=== PATIENT | female | born 1985 | race Caucasian/White ===

== ENCOUNTER 2023-12-19 00:44 | Inpatient (IN) | payer OTHER, SELFPAY ==
[2023-12-19] VITALS (16 sets, daily range): BP systolic 121–148; BP diastolic 82–110; PULSE 77–92; RESP 12–21; TEMP 36.2–36.8; O2SAT 95–100; BMI 54.7
--- NOTE | ~2023-12-19 | CT_ITS ---
CT ANGIOGRAM NECK AND HEAD History: Left neurologic deficit. Technique: Serial spiral axial images through the head and neck were obtained during arterial phase I V injection of 100 cc of Omnipaque 350. 3-D postprocessing and MIP images were then reconstructed on the remote workstation. Dose reduction technique was used on this scan by utilizing automated exposur e control and iterative reconstruction technique. The dose-length product (DLP) was 1040.59 mGy-cm. CTA neck findings: Bilateral vertebral are patent, with hypoplastic right vertebral artery. Bilatera l common carotid, internal carotid, external carotid arteries are patent. Bilateral internal carotid arteries to a partially retropharyngeal course. No large vessel occlusion. No stenosis or aneurysm. T he proximal right internal carotid artery demonstrates 0% stenosis relative to the normal distal nani ry lumen diameter. The proximal left internal carotid artery demonstrates 0% stenosis relative to the normal distal artery lumen diameter. CTA head findings: Distal vertebral arteries, basilar artery, and posterior cerebral arteries are pat ent. Distal internal carotid arteries, middle cerebral arteries, and anterior cerebral arteries are p atent. No large vessel occlusion. No stenosis or aneurysm. Impression: No stenosis, large vessel occlusion, or aneurysm. Reviewed, dictated and finalized at location M. ON CUTTER Impression: No stenosis, large vessel occlusion, or aneurysm.
--- NOTE | ~2023-12-19 | MR_ITS ---
EXAMINATION: MR brain/brain stem wo/w con DATE: 12/20/2023 15:42 INDICATION: Left hand numbness. Left-sided facial weakness. Slurred speech. TECHNIQUE: Magnetic resonance imaging (MRI) of the brain and brainstem was performed without and with 20 mL MultiHance intravenous contrast. COMPARISON: Head CT 12/19/2023 FINDINGS: There is a 14 mm cyst in the pituitary. There are patchy acute infarcts in the posterior ri ght frontal lobe. There is no intracranial hemorrhage. The ventricles are normal in size. The orbits are normal. There is mucosal thickening in the paranasal sinuses. The mastoid air cells are normal. IMPRESSION: 1. Patchy acute infarcts in the posterior right frontal lobe. 2. 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 Reviewed, dictated and finalized at location A. ME SPECIALIST
--- NOTE | ~2023-12-19 | MR_ITS ---
EXAMINATION: MR cervical spine wo/w con DATE: 12/21/2023 13:06 INDICATION: Left hand numbness. TECHNIQUE: Magnetic resonance imaging (MRI) of the cervical spine was performed without and with 20 m L MultiHance intravenous contrast. Sequences included sagittal T2-weighted FSE, sagittal T2-weighted FS FSE, sagittal T1-weighted FSE, axial MERGE, and axial T2-weighted FSE. 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 Bone alignment is meliza l. Vertebral body heights are normal. There is mildly decreased disc height at C5-C6. The spinal cord signal intensity is normal. The following disc levels are specifically discussed: C2-C3: The disc does not extend beyond the endplate margin. There is no uncovertebral joint osteoarth ritis. There is mild left facet joint osteoarthritis. There is no neural foraminal stenosis. There is no central canal stenosis. C3-C4: The disc does not extend beyond the endplate margin. There is mild left uncovertebral joint os teoarthritis. There is no facet joint osteoarthritis. There is mild left neural foraminal stenosis. T here is no central canal stenosis. C4-C5: The disc does not extend beyond the endplate margin. There is no uncovertebral joint osteoarth ritis. There is no facet joint osteoarthritis. There is no neural foraminal stenosis. There is no perry tral canal stenosis. C5-C6: There is a central extrusion. There is moderate right and mild left uncovertebral joint osteoa rthritis. There is no facet joint osteoarthritis. There is mild right neural foraminal stenosis. Ther e is mild central canal stenosis. C6-C7: The disc does not extend beyond the endplate margin. There is mild bilateral uncovertebral luis nt osteoarthritis. There is no facet joint osteoarthritis. There is no neural foraminal stenosis. The re is no central canal stenosis. C7-T1: There is a central extrusion. There is no uncovertebral joint osteoarthritis. There is mild bi lateral facet joint osteoarthritis. There is no neural foraminal stenosis. There is mild central bruce l stenosis. IMPRESSION: 1. Normal spinal cord. 2. Mild cervical spondylosis. 3. 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 Reviewed, dictated and finalized at location A. ORACLE DEVELOPER
--- NOTE | ~2023-12-19 | XR_ITS ---
Portable chest x-ray Comparison: None Clinical History: Neurologic symptoms Findings: Lungs are clear, without focal consolidation or pleural effusion. Cardiomediastinal silho uette is probable enlarged. Bones and soft tissues are unremarkable. Impression: Clear lungs. Reviewed, dictated and finalized at location . MILL OPERATOR Impression: Clear lungs.
--- NOTE | ~2023-12-19 | MR_ITS ---
EXAMINATION: MR thoracic spine wo/w con DATE: 12/21/2023 13:06 INDICATION: Multiple sclerosis. TECHNIQUE: Magnetic resonance imaging (MRI) of the thoracic spine was performed without and with 20 m L MultiHance intravenous contrast. COMPARISON: None FINDINGS: Bone alignment is normal. There are Schmorl's nodes of the inferior endplates of T11 and T1 2. There is mild chronic anterior wedging of T11 and T12. There is mildly decreased disc height at T5 -T6 and T11-T12. At T11-T12, there is a right central extrusion with mild central canal stenosis. The facet joints are unremarkable in thoracic spine. There is no neural foraminal stenosis in thoracic s pine. The spinal cord signal intensity is normal. The conus medullaris is at T12-L1. IMPRESSION: 1. Normal spinal cord. 2. Mild thoracic spondylosis. Reviewed, dictated and finalized at location A. ET SORTER
--- NOTE | ~2023-12-19 | CT_ITS ---
Non-contrast Head CT History: Slurred speech Technique: Axial non-contrast imaging of the brain was performed. Dose reduction technique was used on this scan by utilizing automated exposure control and iterative reconstruction technique. The dose -length product (DLP) was 605.33 mGy-cm. Findings: There is no evidence of intracranial hemorrhage, mass lesion, or acute infarct. Brain par enchyma appears normal. The ventricles and subarachnoid spaces are normal in size. The calvarium ap pears normal. The visualized paranasal sinuses and mastoid air cells are clear. Impression: No significant abnormality seen. Reviewed, dictated and finalized at location . RING TRUCK DRIVER Impression: No significant abnormality seen.
--- NOTE | 2023-12-19 00:53 | ECG_ITS ---
Measurements Intervals [place] Rate: 87 P: 46 UT: 143 QRS: 3 QRSD: 82 T: 75 QT: 319 QTc: 385 Interpretive Statements SINUS RHYTHM EXTENSIVE ANTERIOR INFARCT, AGE INDETERMINATE CONSIDER INFERIOR INFARCT, AGE INDETERMINATE BORDERLINE ST-T WAVE ABNORMALITY- HIGH LATERAL LEADS ABNORMAL ECG NO PREVIOUS ECG AVAILABLE FOR COMPARISON Electronically Signed On 12-19-2023 6:07:46 CONDITIONING MACHINE OPERATOR by Ayden Perdomo D.O.
[2023-12-19 00:57] LABS: Glucose Point of Care 131 mg/dl (65-105)
[2023-12-19 01:27] LABS: Basophils Absolute Auto 0.1 K/mm3 (0.0-0.1); Basophils Percent Auto 0.8 % (0.2-1.2); Eosinophils Absolute Auto 0.3 K/mm3 (0-0.3); Eosinophils Percent Auto 2.4 % (0-4.4); Hematocrit 45.3 % (37.0-47.0); Hemoglobin 14.6 g/dL (12.0-15.0); Immature Granulocyte Absolute 0.13 K/mm3 (0.00-0.031); Lymphocytes Absolute Auto 2.47 K/mm3 (0.9-3.2); Lymphocytes Percent Auto 18.3 % (18.3-44.2); Mean Corpuscular HGB Conc 32.2 g/dl (32-36); Mean Corpuscular Hemoglobin 30.9 pg (26-34); Mean Platelet Volume 9.7 fl (7.4-10.4); Monocytes Absolute Auto 0.6 K/mm3 (0.1-0.6); Monocytes Percent Auto 4.5 % (2.6-8.5); Neutrophils Absolute Auto 9.9 K/mm3 (1.3-6.7); Platelet Count Result 380 k/mm3 (150-375); Red Blood Count 4.72 M/mm3 (4.2-5.4); Red Cell Distribution Width 13.8 % (11.5-14.5); White Blood Count 13.5 K/mm3 (4.5-10.0)
[2023-12-19 01:41] LABS: Alanine Aminotransferase 36 U/L (6-35); Albumin Level 4.1 g/dL (3.5-5.1); Alkaline Phosphatase 101 U/L (38-126); Anion Gap 6 mmol/L (8-16); Aspartate Amino Transferase 36 U/L (14-36); Bilirubin,Total 0.4 mg/dL (0.2-1.3); Blood Urea Nitrogen 14 mg/dL (7-17); Calcium 9.1 mg/dL (8.4-10.2); Carbon Dioxide 27 mmol/L (22-30); Chloride 103 mmol/L (98-107); Estimated Glomerular Filt Rate > 60; Glucose 118 mg/dL (65-110); Potassium 4.2 mmol/L (3.4-5.0); Sodium 136 mmol/L (137-145)
[2023-12-19 01:43] LABS: INR 0.9; Partial Thromboplastin Time 30.3 SECONDS (22.3-36.8); Prothrombin Time 12.4 Seconds (11.1-14.7)
--- NOTE | 2023-12-19 01:59 | ED.NEUROSD ---
HPI - Neuro Symptoms/Deficit General Chief Complaint: Suspected CVA <FIDEL Gallegos Last Filed: 12/19/23 04:40> Stated Complaint: Left weakness, slurred speech since 1930 <FIDEL Gallegos Last Filed: 12/19/23 04:40> Time Seen by Provider: 12/19/23 01:04 <FIDEL Gallegos Last Filed: 12/19/23 04:40> Source: patient <FIDEL Gallegos Last Filed: 12/19/23 04:40> Mode of arrival: ambulatory <FIDEL Gallegos Last Filed: 12/19/23 04:40> Limitations: no limitations <Yassine Hurley PA-C - Last Filed: 12/19/23 04:40> History of Present Illness HPI Narrative: This is a 38-year-old female who presents to the chief complaint possible CVA this evening. Last known well time around 1930. Patient states that she was showering and getting ready for work and noticed that she had some numbness and tingling to her left hand. She reports difficulty with picking things up which is very new for her. She reports that she then went into work and her coworkers thought she sounded like she has slurred speech over the phone. They also informed her that she may have some left-sided facial droop. As I interview her she says the symptoms have largely resolved and now she just has a headache. Denies any recent illness. Denies fevers, chills, vision change, chest pain, shortness of breath. <Yassine Hurley PA-C - Last Filed: 12/19/23 04:40> Related Data Allergies/Adverse Reactions: Allergies Allergy/AdvReac Type Severity Reaction Status Date / Time No Known Allergies Allergy Mild Verified 12/19/23 08:42 <FIDEL Gallegos Last Filed: 12/19/23 04:40> Review of Systems Review of Systems: All systems as dictated in HPI <FIDEL Gallegos Last Filed: 12/19/23 04:40> Course Course Emergency Course: ZYCH 0745: Signed out to oncoming physician pending t/f to [facility] ZYCH 2145: patient was still in the emergency department when I came back for my lard maker. We have Neurology in the morning. The patient will be admitted to the hospital for neurologic evaluation in the a.m.. <Ishmael Kingston MD - Last Filed: 12/19/23 21:46> PLANISHING PRESS OPERATOR/PA Physician Supervision This is a was performed by both a physician and an APC. I performed all aspects of the MDM as documented w/ the following additions: All questions answered. Patient in agreement w/ disposition. <Ishmael Kingston MD - Last Filed: 12/19/23 21:46> Vital Signs Vital signs: Vital Signs Temperature 98.3 F 12/19/23 01:06 Pulse Rate 77 12/19/23 01:06 Respiratory Rate 17 12/19/23 01:06 Blood Pressure 145/110 H 12/19/23 01:06 Pulse Oximetry 95 12/19/23 01:06 Oxygen Delivery Room Air 12/19/23 01:06 Temperature 98.2 F 12/19/23 15:19 Pulse Rate 80 12/19/23 15:19 Respiratory Rate 14 12/19/23 15:19 Blood Pressure 146/88 H 12/19/23 15:19 Pulse Oximetry 100 12/19/23 15:19 Oxygen Delivery Room Air 12/19/23 01:06 <Yassine Hurley PA-C - Last Filed: 12/19/23 04:40> Vital Signs Temperature 98.3 F 12/19/23 01:06 Pulse Rate 77 12/19/23 01:06 Respiratory Rate 17 12/19/23 01:06 Blood Pressure 145/110 H 12/19/23 01:06 Pulse Oximetry 95 12/19/23 01:06 Oxygen Delivery Room Air 12/19/23 01:06 Temperature 98.2 F 12/19/23 15:19 Pulse Rate 80 12/19/23 15:19 Respiratory Rate 14 12/19/23 15:19 Blood Pressure 146/88 H 12/19/23 15:19 Pulse Oximetry 100 12/19/23 15:19 Oxygen Delivery Room Air 12/19/23 01:06 <Ishmael Kingston MD - Last Filed: 12/19/23 21:46> MDM - Neuro Symptoms/Deficit MDM Narrative Medical decision making narrative: This is a 38-year-old female who presents to the ED with chief complaint of stroke-like symptoms onset at 7:30 p.m. this evening. Vitals initially show elevated blood pressure 145/110 but otherwise normal. On initial stroke. Exam she has very slight facial droop on the left and subjective sens
[2023-12-19 02:12] LABS: Troponin I 0.056 ng/mL (0.000-0.034)
[2023-12-19 05:01] LABS: Hemoglobin A1C 5.7 % (<5.7)
[2023-12-19 05:09] LABS: LDL Cholesterol Direct 149 mg/dL
[2023-12-19 08:19] LABS: Troponin I 0.056 ng/mL (0.000-0.034)
--- NOTE | 2023-12-19 09:55 | PC.NURSE ---
0952 spoke with Narda from [facility] transfer center, gave update on pts condition and Narda stated they do not know when the pt might have a bed.
--- NOTE | 2023-12-19 10:08 | PC.NURSE ---
Recliner given to pt due to pt voicing being uncomfortable in ER stretcher.
--- NOTE | 2023-12-19 10:08 | PC.NURSE ---
Pt updated on transfer status.
[2023-12-19 11:05] LABS: Troponin I 0.051 ng/mL (0.000-0.034)
--- NOTE | 2023-12-19 12:56 | PC.NURSE ---
Heart healthy food tray given to pt.
--- NOTE | 2023-12-19 16:01 | ECG_ITS ---
Measurements Intervals [place] Rate: 82 P: 47 UT: 146 QRS: -6 QRSD: 85 T: 50 QT: 374 QTc: 438 Interpretive Statements SINUS RHYTHM RIGHT ATRIAL ENLARGEMENT INFERIOR INFARCT, AGE INDETERMINATE EXTENSIVE ANTERIOR INFARCT, AGE INDETERMINATE BORDERLINE ST-T WAVE ABNORMALITY- HIGH LATERAL LEADS BASELINE ARTIFACT- I, II, III, AVR, AVL ABNORMAL ECG COMPARED TO ECG 12/19/2023 01:10:34 NO SIGNIFICANT CHANGES Electronically Signed On 12-19-2023 17:00:29 CLERK by Ayden Perdomo D.O.
[2023-12-20] VITALS (9 sets, daily range): BP systolic 115–124; BP diastolic 68–89; PULSE 74–88; RESP 16–20; TEMP 35.8–36.5; O2SAT 93–97
--- NOTE | 2023-12-20 | ECHO_ITS ---
Patient Info Name: Rajani Yen Age: 38 years : 1985 Gender: Female Ht: 59 in Wt: 267 lbs BSA: 2.33 m2 HR: 83 bpm Heart Rhythm: Sinus Rhythm Technical Quality: Good Exam Date: 12/20/2023 1:48 PM Exam Location: Echo Lab Patient Status: Inpatient Admit Date: 12/19/2023 Staff Ordering Physician: Abe Britton MD Heel Packer: Natalya Webber RDCS Attending Provider: Florina Chauhan MD Exam Type: CA echo doppler w bubble study Study Info Indications - rule out left atruim enlargment Complete two-dimensional, color flow and Doppler transthoracic echocardiogram is performed with agitated saline. Summary 1. Left ventricular chamber dimension is normal. 2. Left ventricular systolic function is normal, estimated at 50-55%. 3. There is mildly increased left ventricular wall thickness. 4. The left ventricular diastolic function is grade I diastolic dysfunction. 5. Right ventricular systolic function is normal. 6. Intact interatrial septum visualized by color flow and agitated saline imaging. Negative bubble study. 7. There is mild mitral valve regurgitation. Left Ventricle Left ventricular chamber dimension is normal. Left ventricular systolic function is normal, estimated at 50-55%. There is mildly increased left ventricular wall thickness. Left ventricular septal wall motion is abnormal with septal motion related to bundle branch block. The left ventricular diastolic function is grade I diastolic dysfunction. Right Ventricle Right ventricular chamber dimension is normal. Right ventricular systolic function is normal. Left Atria Left atrial chamber dimension is normal. Right Atria Right atrial chamber dimension is normal. Atrial Septum Intact interatrial septum visualized by color flow and agitated saline imaging. Negative bubble study. Aortic Valve The aortic valve is not well visualized. There is no aortic valve stenosis. There is no aortic valve regurgitation. Pulmonic Valve The pulmonic valve is not well visualized. Mitral Valve There is mild mitral valve regurgitation. Tricuspid Valve There is trace tricuspid valve regurgitation. Pericardium/Pleural There is no pericardial effusion. Inferior Vena Cava Normal inferior vena cava with >50% collapse upon inspiration consistent with normal right atrial pressure, 3 mmHg. Aorta The aortic root size at the sinus of Valsalva is normal. Left Ventricular Outflow Tract Name Value Normal LVOT 2D LVOT Diameter 3.0 cm LVOT Doppler LVOT Peak Gradient 4 mmHg LVOT Mean Gradient 3 mmHg LVOT VTI 25 cm LVOT VTI/AV VTI Ratio 0.9 LVOT Stroke Volume 181 ml LVOT CO 11.8 l/min LVOT CI 5.0 l/min/m2 Pulmonic Valve Name Value Normal RVOT Doppler RVOT Peak Gradient 3 mmHg
--- NOTE | 2023-12-20 04:30 | PM.IMHP ---
H&P: HPI History of Present Illness Date/Time: 12/20/23 04:30 Chief Complaint: speech disturbance Narrative: This is a 38-year-old female with past medical history significant for morbid obesity, dyslipidemia, stroke , tobacco dependence. patient presents to the emergency room with numbness, tingling, facial droop, slurred speech. Patient has been her usual state of health prior to these denies any fevers, rigors, chills, nausea, vomiting, vision changes. preliminary workup has been essentially nonrevealing Non-contrast Head CT History: Slurred speech Technique:? Axial non-contrast imaging of the brain was performed. Dose reduction technique was used on this scan by utilizing automated exposure control and iterative reconstruction technique. The dose-length product (DLP) was 605.33 mGy-cm. Findings:? There is no evidence of intracranial hemorrhage, mass lesion, or acute infarct.? Brain parenchyma appears normal.? The ventricles and subarachnoid spaces are normal in size.? The calvarium appears normal.? The visualized paranasal sinuses and mastoid air cells are clear. Impression: No significant abnormality seen. Portable chest x-ray Comparison: None Clinical History: Neurologic symptoms Findings:? Lungs are clear, without focal consolidation or pleural effusion.? Cardiomediastinal silhouette is probable enlarged. Bones and soft tissues are unremarkable. ? Impression: ? Clear lungs. CT ANGIOGRAM NECK AND HEAD History: Left neurologic deficit. Technique: Serial spiral axial images through the head and neck were obtained during arterial phase IV injection of 100 cc of Omnipaque 350. 3-D postprocessing and MIP images were then reconstructed on the remote workstation. Dose reduction technique was used on this scan by utilizing automated exposure control and iterative reconstruction technique. The dose-length product (DLP) was 1040.59 mGy-cm. CTA neck findings:? Bilateral vertebral are patent, with hypoplastic right vertebral artery. Bilateral common carotid, internal carotid, external carotid arteries are patent. Bilateral internal carotid arteries to a partially retropharyngeal course. No large vessel occlusion. No stenosis or aneurysm. The proximal right internal carotid artery demonstrates 0% stenosis relative to the normal distal artery lumen diameter. The proximal left internal carotid artery demonstrates 0% stenosis relative to the normal distal artery lumen diameter. CTA head findings: Distal vertebral arteries, basilar artery, and posterior cerebral arteries are patent. Distal internal carotid arteries, middle cerebral arteries, and anterior cerebral arteries are patent. No large vessel occlusion. No stenosis or aneurysm. Impression: No stenosis, large vessel occlusion, or aneurysm. Review of Systems Review of Systems: facial droop, tingling numbness slurred speech Constitutional: Constitutional: Denies chills, Denies fever(s) and Denies malaise Eyes: Eyes: Denies change in vision ENT: Denies dysphagia, Denies vertigo, Denies dizziness and Denies odynophagia Cardiovascular: Cardiovascular: Denies chest pain, Denies radiating jaw, neck or arm pain and Denies palpitations Respiratory: Respiratory: Denies cough, Denies excessive phlegm production and Denies dyspnea Gastrointestinal: Gastrointestinal: Denies abdominal pain, Denies dyspepsia, Denies heartburn, Denies diarrhea, Denies nausea and Denies vomiting Genitourinary: Genitourinary: Reports no additional female genitourinary complaints and Reports as per HPI Musculoskeletal: Musculoskeletal: Denies arthralgias Integumentary/Breasts: Skin/Breast: Denies rash Neurologic: Reports Abnormal speech present, Denies abnormal gait, Denies vertigo, Denies dizziness, Reports focal weakness, Reports numbness, Reports Sensory deficit (Neuro), Reports tingling and Reports paresthesias Psychiatric: Psychiatric: Reports no additional psychiatric com
[2023-12-20] MEDS: ACETAMINOPHEN 500 MG TABLET 1000 MG PO (04:54)
[2023-12-20] MEDS: CLOPIDOGREL BISULFATE 75 MG TABLET PO (08:38)
[2023-12-20] MEDS: SERTRALINE HCL 25 MG TABLET PO (08:38)
[2023-12-20] MEDS: ASPIRIN 81 MG ENTERIC TABLET PO (08:38)
[2023-12-20] MEDS: ATORVASTATIN 20 MG TABLET PO (08:39)
[2023-12-20] MEDS: carvediloL 3.125 MG TABLET PO ×2 (08:39→20:15)
[2023-12-20] MEDS: LOSARTAN POTASSIUM 25 MG TABLET PO (08:39)
--- NOTE | 2023-12-20 11:10 | WPDNEURCNPN ---
Assessment and Plan Assessment and plan (1) Demyelinating disease: Code(s): G37.9 - Demyelinating disease of central nervous system, unspecified Status: Acute Plan 38 years old with complaints of numbness and tingling sensation on her left hand while showering and peaking of the things with fairly nonfocal examination at this particular time considering the age of the patient MRI will be definitely needed to rule out the possible demyelinating, CTA of the brain has been done which is negative, in addition to the MRI will also obtain the echocardiogram. Consult date: 12/20/23 HPI: Rajani Yen is a 38 year old female Has been admitted to the hospital through the emergency room for the possibility of TIA versus cerebrovascular accident. As per the information available she was last known well around 7:30 p.m. she was showering and getting ready for work when she noted that she had some numbness and tingling sensation to the left side of the face she also noted difficulties in picking up things she went on to the work and her coworkers thought she sounded like she has slurred speech over the telephone. Subsequently she was noted to have some left-sided facial droop by the time she was in the emergency room the symptomatology has resolved except that she was complaining of headaches she is not allergic to any medications. Evaluation in the emergency room revealed her to have normal vital signs except the blood pressure of 145/110, her CBC was normal so as the basic metabolic panel and routine lab studies were normal, CTA in the emergency room was negative for any involvement of the large vessels and CT scan of the head was negative. Review of Systems Review of Systems: All systems reviewed & are unremarkable except as noted in HPI and below PMFSH Social History Social History Smoking packs per day: 1 Smoking cigarettes per day: 20.0 Years smoked: 20 Smoking pack-years: 20.00 Smoking status: Current every day smoker Tobacco type: cigarettes and e-cigarettes/vaping Second hand tobacco smoke exposure: Yes Alcohol intake: never Substance use: current Substance use type: marijuana Other substance usage details: gummies rarely Do You Feel Safe in your Home?: Yes Lack of Transportation: No Lack of Food: Sometimes True Current Housing: I Have Housing Concerned About Future Housing: No Difficulty Paying Gas/Electric Bills: YES Difficulty Paying for Meds: YES Currently Unemployed: No Education: High School Diploma/GED Difficulty w/ Childcare or Family Care: No Spiritual care concerns: No Meds Home Medications and Allergies Home Medications Medication Instructions Recorded Confirmed Type aspirin 81 mg tablet,delayed 81 mg PO DAILY 12/19/23 12/19/23 History release atorvastatin 20 mg tablet 20 mg PO DAILY 12/19/23 12/19/23 History carvedilol 3.125 mg tablet 3.125 mg PO BID 12/19/23 12/19/23 History clopidogrel 75 mg tablet 75 mg PO DAILY 12/19/23 12/19/23 History losartan 25 mg tablet 25 mg PO DAILY 12/19/23 12/19/23 History nystatin 100,000 unit/gram topical 100,000 unit topical BID PRN Rash 12/19/23 12/19/23 History cream sertraline 25 mg tablet 25 mg PO DAILY 12/19/23 12/19/23 History Allergies Allergy/AdvReac Type Severity Reaction Status Date / Time No Known Allergies Allergy Mild Verified 12/20/23 03:56 Vital Signs Vital Signs - 24 hr 12/19/23 12:02 12/19/23 12:15 12/19/23 12:30 Temperature Pulse Rate 86 84 87 Respiratory Rate 18 15 19 Blood Pressure Pulse Oximetry Oxygen Delivery 12/19/23 15:19 12/19/23 22:31 12/19/23 23:27 Temperature 36.8 C 36.2 C L Pulse Rate 80 89 82 Respiratory Rate 14 12 18 Blood Pressure 146/88 H 121/85 144/98 H Pulse Oximetry 100 96 99 Oxygen Delivery 12/20/23 04:00 12/20/23 04:00 12/20/23 08:00 Temperature 36.2 C L 36.1 C L Pulse Rate 88 85 82 Respiratory Rate 16 16 Blood Pressure 115
--- NOTE | 2023-12-20 14:27 | PM.IMPN ---
Progress Note: A&P Assessment and Plan (1) Demyelinating disease: Code(s): G37.9 - Demyelinating disease of central nervous system, unspecified Status: Acute (2) TIA (transient ischemic attack): Code(s): G45.9 - Transient cerebral ischemic attack, unspecified Status: Acute Plan 38-year-old female presented to the ED with stroke-like symptoms at 7:30 p.m. 12/19/2023. Symptoms were left-sided facial droop delete numbness in the left upper extremity. CT brain was negative. Resolved in 2-3 hours per patient. Out of the window for tPA on arrival. Mild troponin elevation at 0.056 mild leukocytosis 13.5 CMP unremarkable. Admitted for TIA workup. [facility] was contacted for transfer and was accepted CTA head and neck was obtained which was negative for any stenosis. Will perform MRI and echocardiogram further evaluation. History of cardiac problem in the past and has been on dual antiplatelet therapy no records available for this. EKG here with sinus rhythm Smoker LDL 149 will increase atorvastatin to 40 mg daily Flat troponin trend DVT prophylaxis Lovenox Subjective Date/time seen: 12/20/23 14:27 Interval history: No overnight events feels well. Denies any complains. Tingling and numbness and facial drooping has resolved Review of Systems Review of Systems: All systems reviewed & are unremarkable except as noted in HPI and below Exam Narrative: GENERAL: The patient is well developed, not in acute distress HEENT: Nonicteric sclerae, PERRLA, EOMI. Oropharynx clear. Moist mucous membranes. Conjunctivae appear well perfused. CHEST: Chest wall is nontender. HEART: Regular rate and rhythm without murmur, rubs, or gallops LUNGS: Clear to auscultation bilaterally. no respiratory distress ABDOMEN: Soft, positive bowel sounds, non-tender, no organomegaly. SKIN: No rash, no excessive bruising, petechiae, or purpura. NEUROLOGIC: Cranial nerves II-XII intact, alert and oriented x 3, no gross motor deficits EXTREMITIES: no edema, cyanosis or clubbing Objective Data Vital Signs Vital Signs: Vital Signs - 24 hr 12/19/23 15:19 12/19/23 22:31 12/19/23 23:27 Temperature 98.2 F 97.1 F L Pulse Rate 80 89 82 Respiratory Rate 14 12 18 Blood Pressure 146/88 H 121/85 144/98 H Pulse Oximetry 100 96 99 Oxygen Delivery 12/20/23 04:00 12/20/23 04:00 12/20/23 08:00 Temperature 97.1 F L 97.0 F L Pulse Rate 88 85 82 Respiratory Rate 16 16 Blood Pressure 115/84 124/84 Pulse Oximetry 96 97 Oxygen Delivery 12/20/23 08:39 12/20/23 08:02 12/20/23 08:02 Temperature Pulse Rate 83 82 82 Respiratory Rate 16 Blood Pressure Pulse Oximetry 97 Oxygen Delivery Room Air 12/20/23 11:06 12/20/23 12:03 12/20/23 11:50 Temperature 97.7 F Pulse Rate 83 79 Respiratory Rate 16 Blood Pressure 119/68 Pulse Oximetry 97 93 Oxygen Delivery Room Air Intake/Output Intake/Output: Intake & Output 12/17/23 12/18/23 12/19/23 12/20/23 23:59 23:59 23:59 23:59 Intake Total 360 Balance 360 Meds/Results Medications: Active Medications Generic Name Dose Route Start Last Admin Trade Name Freq PRN Reason Stop Dose Admin Aspirin 81 mg 12/20/23 09:00 12/20/23 08:38 Aspirin 81 Mg Enteric Tablet PO 81 mg DAILY DAVIDA Administration Atorvastatin Calcium 20 mg 12/20/23 09:00 12/20/23 08:39 Atorvastatin 20 Mg Tablet PO 20 mg DAILY DAVIDA Administration Carvedilol 3.125 mg 12/20/23 09:00 12/20/23 08:39 Carvedilol 3.125 Mg Tablet PO 3.125 mg Q12HR DAVIDA Administration Clopidogrel Bisulfate 75 mg 12/20/23 09:00 12/20/23 08:38 Clopidogrel Bisulfate 75 Mg Tablet PO 75 mg DAILY DAVIDA Administration Losartan Potassium 25 mg 12/20/23 09:00 12/20/23 08:39 Losartan Potassium 25 Mg Tablet PO 25 mg DAILY DAVIDA Administration Miconazole Nitrate 100,000 applic 12/20/23 04:30 Miconazole Nitrate 2% Cream 30 Gm Tube TOPICAL BID PRN Ra
[2023-12-20] MEDS: ATORVASTATIN 40 MG TABLET PO (20:15)
[2023-12-21] VITALS (11 sets, daily range): BP systolic 99–141; BP diastolic 66–98; PULSE 73–789; RESP 16–20; TEMP 35.7–36.8; O2SAT 95–100
[2023-12-21 07:11] LABS: Basophils Absolute Auto 0.1 K/mm3 (0.0-0.1); Basophils Percent Auto 0.8 % (0.2-1.2); Eosinophils Absolute Auto 0.3 K/mm3 (0-0.3); Eosinophils Percent Auto 2.6 % (0-4.4); Hematocrit 47.6 % (37.0-47.0); Hemoglobin 14.9 g/dL (12.0-15.0); Immature Granulocyte Absolute 0.15 K/mm3 (0.00-0.031); Immature Granulocyte Percent A 1.2 % (0-0.5); Lymphocytes Absolute Auto 2.45 K/mm3 (0.9-3.2); Lymphocytes Percent Auto 18.8 % (18.3-44.2); Mean Corpuscular HGB Conc 31.3 g/dl (32-36); Mean Corpuscular Hemoglobin 30.5 pg (26-34); Mean Corpuscular Volume 97.5 fl (80-100); Mean Platelet Volume 9.9 fl (7.4-10.4); Monocytes Absolute Auto 0.7 K/mm3 (0.1-0.6); Monocytes Percent Auto 5.7 % (2.6-8.5); Neutrophils Absolute Auto 9.3 K/mm3 (1.3-6.7); Neutrophils Percent Auto 70.9 % (45.5-73.1); Platelet Count Result 396 k/mm3 (150-375); Red Blood Count 4.88 M/mm3 (4.2-5.4)
[2023-12-21 07:42] LABS: Alanine Aminotransferase 36 U/L (6-35); Alkaline Phosphatase 140 U/L (38-126); Anion Gap 7 mmol/L (8-16); Aspartate Amino Transferase 33 U/L (14-36); Bilirubin,Total 0.5 mg/dL (0.2-1.3); Blood Urea Nitrogen 11 mg/dL (7-17); Calcium 8.9 mg/dL (8.4-10.2); Carbon Dioxide 27 mmol/L (22-30); Chloride 102 mmol/L (98-107); Estimated Glomerular Filt Rate > 60; Glucose 100 mg/dL (65-110); Potassium 4.3 mmol/L (3.4-5.0); Sodium 136 mmol/L (137-145)
[2023-12-21] MEDS: CLOPIDOGREL BISULFATE 75 MG TABLET PO (08:43)
[2023-12-21] MEDS: ATORVASTATIN 40 MG TABLET PO (08:43)
[2023-12-21] MEDS: ASPIRIN 81 MG ENTERIC TABLET PO (08:43)
[2023-12-21] MEDS: carvediloL 3.125 MG TABLET PO ×2 (08:43→22:03)
[2023-12-21] MEDS: SERTRALINE HCL 25 MG TABLET PO (08:44)
[2023-12-21] MEDS: LOSARTAN POTASSIUM 25 MG TABLET PO (08:44)
[2023-12-21] MEDS: ENOXAPARIN 40 MG/0.4 ML SYRINGE SUB-Q (08:44)
--- NOTE | 2023-12-21 10:40 | PM.IMPN ---
Progress Note: A&P Assessment and Plan (1) CVA (cerebral vascular accident): Code(s): I63.9 - Cerebral infarction, unspecified Status: Acute Assessment and Plan: Patient presents with left UE numbness, slurred speech and left facial droop. CT head showing no acute findings. CTA of the head and neck showing no stenosis, large vessel occlusion or aneurysm. Echo showing EF 50-55% with Grade I diastolic dysfunction and intact septum. MRI brain showing patchy acute infarcts posterior right frontal lobe Neurology consulted and appreciate their input MRI cervical and thoracic showing no evidence of MS Patient already on ASA, Plavix and Lipitor Lipitor dose increased. Nothing on tele but consider pAFib Cards consult for possible implantable monitor. PT/OT/ST evaluation Check apnea link. Check AMANDA (2) Morbid obesity with BMI of 50.0-59.9, adult: Code(s): E66.01 - Morbid (severe) obesity due to excess calories; Z68.43 - Body mass index [BMI] 50.0-59.9, adult Status: Acute Assessment and Plan: BMI 55. She was educated about the benefits of leading a healthy lifestyle (3) CAD (coronary artery disease): Code(s): I25.10 - Atherosclerotic heart disease of [place] coronary artery without angina pectoris Status: Acute Assessment and Plan: Hx of CAD. No chest pain. Continue medical management (4) Tobacco dependence: Code(s): F17.200 - Nicotine dependence, unspecified, uncomplicated Status: Acute Assessment and Plan: Patient was educated about the benefits of smoking cessation Plan DVT prophylaxis - lovenox Code status - full Subjective Date/time seen: 12/21/23 10:40 Interval history: 38yo female with hx of CAD, obesity and tobacco abuse here for left UE numbness, slurred speech and left facial droop. Assuming care. Chart reviewed. No problems overnight. Slept well. The numbness in the left upper extremity has resolved. Her slurred speech has resolved. She denies any dysphagia. She is up walking to the bathroom. Adopted so knows very little about family hx. No solar rash. . Exam Narrative: AF 96.3 141/98 85 18 97% ra Gen - NARD sitting at the side of the bed Chest - CTA bilaterally, nml RR CV - RRR S1/S2. Tele showing occasional PVCs Abd - Soft, obese, NT Ext - trace pedal edema Neuro - Alert and oriented. Nonfocal exam. Psych - Nml mood and affect Skin - Warm and dry Objective Data Vital Signs Vital Signs: Vital Signs - 24 hr 12/20/23 11:06 12/20/23 12:03 12/20/23 11:50 Temperature 97.7 F Pulse Rate 83 79 Respiratory Rate 16 Blood Pressure 119/68 Pulse Oximetry 97 93 Oxygen Delivery Room Air 12/20/23 16:30 12/20/23 20:00 12/20/23 20:00 Temperature 96.5 F L 96.8 F L Pulse Rate 75 75 77 Respiratory Rate 16 16 20 Blood Pressure 123/86 122/89 Pulse Oximetry 95 95 96 Oxygen Delivery Room Air 12/20/23 20:00 12/21/23 00:00 12/21/23 00:00 Temperature 97 F L Pulse Rate 74 77 73 Respiratory Rate 20 Blood Pressure 99/67 L Pulse Oximetry 97 Oxygen Delivery 12/21/23 04:00 12/21/23 04:00 12/21/23 08:43 Temperature 97.2 F L Pulse Rate 91 99 85 Respiratory Rate 20 Blood Pressure 135/87 Pulse Oximetry 100 Oxygen Delivery 12/21/23 08:00 Temperature 96.3 F L Pulse Rate 85 Respiratory Rate 18 Blood Pressure 141/98 H Pulse Oximetry 97 Oxygen Delivery Intake/Output Intake/Output: Intake & Output 12/18/23 12/19/23 12/20/23 12/21/23 23:59 23:59 23:59 23:59 Intake Total 1150 960 Balance 1150 960 Meds/Results Medications: Active Medications Generic Name Dose Route Start Last Admin Trade Name Darienq PRN Reason Stop Dose Admin Aspirin 81 mg 12/20/23 09:00 12/21/23 08:43 Aspirin 81 Mg Enteric Tablet PO 81 mg DAILY DAVIDA Administration Atorvastatin Calcium 40 mg 12/20/23 21:35 12/21/23 08:43 Atorvastatin 40 Mg Ta
[2023-12-21 11:54] LABS: Creatine Kinase 67 U/L (30-135)
--- NOTE | 2023-12-21 12:21 | PM.CNCAR ---
Assessment and Plan Assessment and plan (1) CVA (cerebral vascular accident): Code(s): I63.9 - Cerebral infarction, unspecified Status: Acute Assessment and Plan: Neurology following. On dual antiplatelets. Obtain 30 day event monitor to check for PAF. (2) Tobacco dependence: Code(s): F17.200 - Nicotine dependence, unspecified, uncomplicated Status: Acute Assessment and Plan: Counseled regarding smoking cessation. (3) Hypertension: Code(s): I10 - Essential (primary) hypertension Status: Acute Assessment and Plan: Stable. (4) Dyslipidemia: Code(s): E78.5 - Hyperlipidemia, unspecified Status: Acute Assessment and Plan: On Atorvastatin. (5) Hypersomnia: Code(s): G47.10 - Hypersomnia, unspecified Status: Acute Assessment and Plan: Will need outpatient sleep study. History of Present Illness History of Present Illness Consult date/time: 12/21/23 12:21 Reason For Visit: CVA Narrative: 38 yr old woman admitted to hospital for stroke. She has a history of hypertension, dyslipidemia, smoking, obesity. Reports she felt numbness of face, left arm and slurred speech which lasted a couple of hours. MRI brain showed patchy infarct of posterior frontal lobe. She has palpitations lasting a couple of minutes worse when she is stressed. She can walk 1/2 block and limited by BANSAL. She smokes 1 ppd. Denies chest pain, orthopnea, PND, dizziness. Review of Systems Review of Systems: All systems reviewed & are unremarkable except as noted in HPI and below Constitutional: Constitutional: Reports as per HPI, Denies chills and Denies fever(s) Cardiovascular: Cardiovascular: Reports as per HPI, Denies chest pain and Reports irregular heart rhythm Respiratory: Respiratory: Reports as per HPI and Reports dyspnea on exertion Gastrointestinal: Gastrointestinal: Reports as per HPI and Denies abdominal pain Genitourinary: Genitourinary: Reports as per HPI and Denies dysuria Musculoskeletal: Musculoskeletal: Reports as per HPI Neurologic: Reports as per HPI, Denies dizziness and Denies syncope [facility] Past Medical History Medical History (Updated 12/21/23 @ 12:25 by Ayden Perdomo DO) CAD (coronary artery disease) Social History Social History Smoking packs per day: 1 Smoking cigarettes per day: 20.0 Years smoked: 20 Smoking pack-years: 20.00 Smoking status: Current every day smoker Tobacco type: cigarettes and e-cigarettes/vaping Second hand tobacco smoke exposure: Yes Alcohol intake: never Substance use: current Substance use type: marijuana Other substance usage details: gummies rarely Do You Feel Safe in your Home?: Yes Lack of Transportation: No Lack of Food: Sometimes True Current Housing: I Have Housing Concerned About Future Housing: No Difficulty Paying Gas/Electric Bills: YES Difficulty Paying for Meds: YES Currently Unemployed: No Education: High School Diploma/GED Difficulty w/ Childcare or Family Care: No Spiritual care concerns: No Meds Home Medications and Allergies Home Medications Medication Instructions Recorded Confirmed Type aspirin 81 mg tablet,delayed 81 mg PO DAILY 12/19/23 12/19/23 History release atorvastatin 20 mg tablet 20 mg PO DAILY 12/19/23 12/19/23 History carvedilol 3.125 mg tablet 3.125 mg PO BID 12/19/23 12/19/23 History clopidogrel 75 mg tablet 75 mg PO DAILY 12/19/23 12/19/23 History losartan 25 mg tablet 25 mg PO DAILY 12/19/23 12/19/23 History nystatin 100,000 unit/gram topical 100,000 unit topical BID PRN Rash 12/19/23 12/19/23 History cream sertraline 25 mg tablet 25 mg PO DAILY 12/19/23 12/19/23 History Allergies Allergy/AdvReac Type Severity Reaction Status Date / Time No Known Allergies Allergy Mild Verified 12/20/23 03:56 Vital Signs Vital Signs - 24 hr 12/20/23 16:30 12/20/23 20:00 12/20/23 20:00 Temperat
--- NOTE | 2023-12-21 16:04 | PCSTNOTE ---
Please refer to the Bedside Swallow Evaluation in the EMR. Please note, silent aspiration cannot be ruled out at bedside.
[2023-12-22] VITALS (7 sets, daily range): BP systolic 124–136; BP diastolic 50–80; PULSE 76–86; RESP 18; TEMP 35.6–35.8; O2SAT 97–99
--- NOTE | 2023-12-22 07:49 | PM.PNCARD ---
Progress Note: A&P Assessment and Plan (1) CVA (cerebral vascular accident): Code(s): I63.9 - Cerebral infarction, unspecified Status: Acute Assessment and Plan: Unclear etiology. Neurology following. On dual antiplatelets. 30 day event monitor to check for PAF has been placed. March d/c home from cardiology standpoint and f/u with me in 1 month. (2) Tobacco dependence: Code(s): F17.200 - Nicotine dependence, unspecified, uncomplicated Status: Acute Assessment and Plan: Counseled regarding smoking cessation. (3) Hypertension: Code(s): I10 - Essential (primary) hypertension Status: Acute Assessment and Plan: Stable. (4) Dyslipidemia: Code(s): E78.5 - Hyperlipidemia, unspecified Status: Acute Assessment and Plan: On Atorvastatin. (5) Hypersomnia: Code(s): G47.10 - Hypersomnia, unspecified Status: Acute Assessment and Plan: Will need outpatient sleep study. Subjective Date/time seen: 12/22/23 07:49 Interval history: No chest pain or sob. Stroke symptoms resolved. Exam Const: General: cooperative, healthy appearing, comfortable and obese Nutritional Appearance: obese Orientation/consciousness: oriented to person, oriented to place and oriented to time Resp: Auscultation: clear to auscultation bilaterally, no crackles, no rales, no rhonchi and no wheezes Cardio: Rate: regular rate Rhythm: regular rhythm Heart sounds: no murmurs Peripheral pulses: dorsalis pedis present Neuro: General: oriented to person, oriented to place and oriented to time Extrem: Right lower extremity: no edema Left lower extremity: no edema Objective Data Vital Signs Vital Signs: Vital Signs - 24 hr 12/21/23 08:43 12/21/23 08:00 12/21/23 12:00 Temperature 96.3 F L 97.5 F L Pulse Rate 85 85 82 Respiratory Rate 18 16 Blood Pressure 141/98 H 125/94 H Pulse Oximetry 97 98 Oxygen Delivery 12/21/23 14:54 12/21/23 08:02 12/21/23 11:56 Temperature Pulse Rate 90 79 Respiratory Rate Blood Pressure Pulse Oximetry Oxygen Delivery Room Air 12/21/23 15:59 12/21/23 16:01 12/21/23 20:00 Temperature 98.2 F 97.2 F L Pulse Rate 89 80 78 Respiratory Rate 18 20 Blood Pressure 140/88 105/66 Pulse Oximetry 97 95 Oxygen Delivery 12/21/23 20:00 12/22/23 00:00 12/21/23 23:45 Temperature Pulse Rate 79 79 789 H Respiratory Rate Blood Pressure Pulse Oximetry 96 Oxygen Delivery Room Air 12/22/23 04:00 Temperature Pulse Rate 76 Respiratory Rate Blood Pressure Pulse Oximetry Oxygen Delivery Intake/Output Intake/Output: Intake & Output 12/19/23 12/20/23 12/21/23 12/22/23 23:59 23:59 23:59 23:59 Intake Total 1150 1482 250 Balance 1150 1482 250 Meds/Results Medications: Active Medications Generic Name Dose Route Start Last Admin Trade Name Freq PRN Reason Stop Dose Admin Aspirin 81 mg 12/20/23 09:00 12/21/23 08:43 Aspirin 81 Mg Enteric Tablet PO 81 mg DAILY DAVIDA Administration Atorvastatin Calcium 40 mg 12/20/23 21:35 12/21/23 08:43 Atorvastatin 40 Mg Tablet PO 40 mg DAILY DAVIDA Administration Carvedilol 3.125 mg 12/20/23 09:00 12/21/23 22:03 Carvedilol 3.125 Mg Tablet PO 3.125 mg Q12HR DAVIDA Administration Clopidogrel Bisulfate 75 mg 12/20/23 09:00 12/21/23 08:43 Clopidogrel Bisulfate 75 Mg Tablet PO 75 mg DAILY DAVIDA Administration Enoxaparin Sodium 40 mg 12/21/23 09:00 12/21/23 08:44 Enoxaparin 40 Mg/0.4 Ml Syringe SUB-Q 40 mg DAILY DAVIDA Administration Losartan Potassium 25 mg 12/20/23 09:00 12/21/23 08:44 Losartan Potassium 25 Mg Tablet PO 25 mg DAILY DAVIDA Administration Miconazole Nitrate 100,000 applic 12/20/23 04:30 Miconazole Nitrate 2% Cream 30 Gm Tube TOPICAL BID PRN Rash Perflutren Lipid Microsphere 0 ml 12/20/23 13:05 Perflutren Lipid Microspheres 1.5 Ml Vial Dil
[2023-12-22] MEDS: ASPIRIN 81 MG ENTERIC TABLET PO (09:01)
[2023-12-22] MEDS: CLOPIDOGREL BISULFATE 75 MG TABLET PO (09:01)
[2023-12-22] MEDS: carvediloL 3.125 MG TABLET PO (09:01)
[2023-12-22] MEDS: ATORVASTATIN 40 MG TABLET PO (09:01)
[2023-12-22] MEDS: ENOXAPARIN 40 MG/0.4 ML SYRINGE SUB-Q (09:01)
[2023-12-22] MEDS: LOSARTAN POTASSIUM 25 MG TABLET PO (09:01)
[2023-12-22] MEDS: SERTRALINE HCL 25 MG TABLET PO (09:01)
[2023-12-22] MEDS: CALCIUM CARBONATE (TUMS) 500 MG (200 MG ELEMENTAL) PO (09:34)
--- NOTE | 2023-12-22 12:40 | WPDNEUROPN ---
Progress Note: A&P Assessment and Plan (1) CVA (cerebral vascular accident): Code(s): I63.9 - Cerebral infarction, unspecified Status: Acute (2) CAD (coronary artery disease): Code(s): I25.10 - Atherosclerotic heart disease of [place] coronary artery without angina pectoris Status: Acute (3) Hypertension: Code(s): I10 - Essential (primary) hypertension Status: Acute (4) Dyslipidemia: Code(s): E78.5 - Hyperlipidemia, unspecified Status: Acute (5) Hypersomnia: Code(s): G47.10 - Hypersomnia, unspecified Status: Acute (6) Tobacco dependence: Code(s): F17.200 - Nicotine dependence, unspecified, uncomplicated Status: Acute Plan Ms. Yen is a 38 year old female with a history of prior DE, obesity, chronic smoking, hyperlipidemia, prediabetes presenting due to symptoms of L sided numbness, left facial droop, and slurrying of the speech that resolved on admission. MRI brain showed acute infarct in the R posterior frontal region. She does have multiple risk factors for stroke, but given her young age and prior history of DE -- will need additional evaluation of hypercoagulability and cardioembolic causes of stroke, respectively. - Will obtain hypercoagulability lab work - Continue Aspirin 81mg daily and Plavix 75mg daily - Would consult Cardiology for possible additional cardiac work-up such as Holter/Loop/DARBY - Increase Lipitor to 40mg daily - Discussed importance of smoking cessation - She has some symptoms suggestive of ROBBY -- would refer to sleep medicine as outpatient for further evaluation - Outpatient follow-up in Neurology clinic Subjective Date/time seen: 12/22/23 12:40 Interval history: Ms. Yen is a 38 year old female with a history of obestiy, prior stroke, HLD, chronic smoking who presented due to left sided numbness, L facial droop and sleep deficit. Symptoms started around 7-8PM on day of presnetation and lasted about 1-2 hours before self-resolving. She presented to [facility] where her symptoms seemed to have mostly resolved. Her BP on presentation was in the 140s systolic. EKG showed sinus rhythm. CT head was negative for any acute changes. CTA brain/carotid did not reveal any significant findings. MRI brain showed punctate infarcts in the posterior R frontal lobe. MRI cervical ad thoracic spine was also obtained which showed normal cord signal. Surface echocardiogram has been done which shows EF 50-55% without evidence of shunt. She has a history of DE in the past year. She is already on aspirin 81mg daily and Plavix 75mg daily. She also takes Lipitor 10mg daily. Her LDL from this admission is 149 and her A1c is 5.7. Patient is adopted so she does not know her family history. She denies any personal history of abnormal clotting such as DVTs or PE, or multiple miscarriages. She feels back to her baseline currently and does not have any significant complaints. She does smoke about 1/2 ppd, which is a reduction from 1 ppd. She reports being quite sleepy during the day and snoring at night. Review of Systems Review of Systems: All systems reviewed & are unremarkable except as noted in HPI and below Exam Const: General: comfortable and no acute distress HENMT: Mouth: Yes moist mucous membranes Eyes: Pupils: Equal, round and reactive pupils present EOM: EOMs intact bilaterally Resp: Effort & Inspection: normal respiratory effort Skin: General skin exam: normal color Neuro: Other: Pupils equal and reactive bilaterally, EOMI, face symmetric, facial sensation intact, tongue protrudes midline, palate midline. Shoulder shrug normal. Strength 5/5 throughout. Sensation intact throughout. FNF normal bilaterally. Language comprehension and fluency intact. Gait deferred. Extrem: General: normal to inspection Psych: Mental Status: mental status grossly normal Affect: normal affect Objective Data Vital Signs Vital Signs: Vital Signs - 24 hr
--- NOTE | 2023-12-22 14:36 | PM.DS ---
DS: Admitting Diagnosis Discharge Date 12/22/23 Admitting Diagnosis Left sided weakness DS: Discharge Diagnosis Discharge Diagnosis (1) CVA (cerebral vascular accident): Code(s): I63.9 - Cerebral infarction, unspecified Status: Acute (2) Morbid obesity with BMI of 50.0-59.9, adult: Code(s): E66.01 - Morbid (severe) obesity due to excess calories; Z68.43 - Body mass index [BMI] 50.0-59.9, adult Status: Acute (3) CAD (coronary artery disease): Code(s): I25.10 - Atherosclerotic heart disease of [place] coronary artery without angina pectoris Status: Acute Assessment and Plan: Hx of CAD. No chest pain. Continue medical management (4) Tobacco dependence: Code(s): F17.200 - Nicotine dependence, unspecified, uncomplicated Status: Acute DS: Summary Hospital Course Reason for hospitalization: 38yo female with hx of CAD, obesity and tobacco abuse here for left UE numbness, slurred speech and left facial droop. Please see H&P for details. Hospital Course: Patient presents with left UE numbness, slurred speech and left facial droop. CT head showing no acute findings. CTA of the head and neck showing no stenosis, large vessel occlusion or aneurysm. Echo showing EF 50-55% with Grade I diastolic dysfunction and intact septum. MRI brain showing patchy acute infarcts posterior right frontal lobe Neurology consulted and appreciate their input. MRI cervical and thoracic showing no evidence of MS. Patient is already on ASA, Plavix and Lipitor. Her Lipitor dose was increased. Nothing on tele consistent with pAFib. Cardiology consulted for longer term cardiac monitoring. Her symptoms resolved. PT/OT/ST evaluation showiing no concerns. Apnea link showing no concerns for ROBBY.?Coagulopathy panel ordered. BMI 55.? She was educated about the benefits of leading a healthy lifestyle. Patient was educated about the benefits of smoking cessation. She overall did well and was able to be discharged home on 12/22/23. corrections nurse was placed prior to discharge Status at Discharge Cognitive/behavioral status at discharge: stable Time Spent with Patient Time attestation: Total time spent providing and/or coordinating discharge services: 35 minutes Time spent: Greater than 30 minutes Exam Narrative: AF 96.5 136/50 81 18 97% ra Gen - NARD sitting at the side of the bed Chest - CTA bilaterally, nml RR CV - RRR S1/S2. Tele showing occasional PVCs Abd - Soft, obese, NT Ext - trace pedal edema Neuro - Alert and oriented. Nonfocal exam. Psych - Nml mood and affect Skin - Warm and dry DS: Data Data Completed and Pending Labs on day of discharge: Labs from last 24 hours 12/22/23 12/22/23 14:13 14:12 D-Dimer Pending LA PTT Screen Pending dRVVT Screen Pending dRVVT Additional Test Pending Lupus Anticoag Interp Pending Prot C Funct Activity Pending APC Resistance Ratio Pending Protein S Activity Pending Antithrombin III Activ Pending Factor V Leiden Mutat Pending Factor V Mutat Interp Pending Factor VIII Activity Pending Factor IX Activity Pending Factor X Chromogenic Pending C-Reactive Protein Pending Lipoprotein (a) Pending Homocysteine Pending Beta-2-GPI IgG Ab Pending Beta-2-GPI IgA Ab Pending Beta-2-GPI IgM Ab Pending Phosphatidylserine IgG Pending Phosphatidylserine IgA Pending Phosphatidylserine IgM Pending Anti-Cardiolipin IgG Ab Pending Anti-Cardiolipin IgA Ab Pending Anti-Cardiolipin IgM Ab Pending MTHFR DNA Mutation Anal Pending MTHFR Interpretation Pending Prothrombin Gene Mutate Pending Prothromb Gene Comment Pending Discharge Plan Discharge Attending physician on discharge: Kamaljit Pascal Consulting providers: Yassine Hurley; Abe Britton; Ayden Perdomo Discharging Clinician: Kamaljit Pascal Anticipated Discharge Date/Time: 12/22/23 14:42 Patient Disposition: Home,
[2023-12-22 14:44] LABS: CRP 1.1 mg/dL (<1.0)
[2023-12-26 15:28] LABS: Homocysteine 18.7 umol/L (<10.4)
[2023-12-27 02:39] LABS: Aldolase 6.6 U/L (<=8.1)
[2023-12-27 20:11] LABS: Lipoprotein A 25 nmol/L (<75)
[2023-12-27 21:40] LABS: Lupus dRVVT Screen 41 sec (<=45); PTT-LA Screen 39 sec (<=40)
[2023-12-29 04:33] LABS: Antithrombin III Activity 114 % normal (80-135)
[2023-12-31 15:18] LABS: Anti Cardio Antibody IgM <2.0 MPL-U/mL (<20.0); Anti Cardiolipin Antibody IgA <2.0 APL-U/mL (<20.0); Anti Cardiolipin Antibody IgG <2.0 GPL-U/mL (<20.0)
[2024-01-04 14:56] LABS: APC Ratio 4.7
== END 2023-12-22 16:30 | disposition home or self-care (01) | DRG 45 ==
LOC: ANHED 21:46 → ANH3MEDSUR 22:16
PROVIDERS: Emergency Medicine; Internal Medicine; Psychiatry & Neurology Neurology; Student in an Organized Health Care Education/Training Program; Admitting Provider Internal Medicine; Emergency Provider Physician Assistant; PCP Hospitalist; Visit Provider Internal Medicine
DX: I63.9 Cerebral infarction, unspecified (principal); I25.10 Atherosclerotic heart disease of native coronary artery without angina pectoris; E66.01 Morbid (severe) obesity due to excess calories; Z68.43 Body mass index [BMI] 50.0-59.9, adult; F17.210 Nicotine dependence, cigarettes, uncomplicated; R47.81 Slurred speech; R29.810 Facial weakness; G81.94 Hemiplegia, unspecified affecting left nondominant side; E78.5 Hyperlipidemia, unspecified; G37.9 Demyelinating disease of central nervous system, unspecified; I10 Essential (primary) hypertension; G47.10 Hypersomnia, unspecified; R73.03 Prediabetes; I25.2 Old myocardial infarction; Z28.21 Immunization not carried out because of patient refusal; Z79.82 Long term (current) use of aspirin; Z79.02 Long term (current) use of antithrombotics/antiplatelets
CPT/HCPCS: 36415; 70450; 70496; 70498; 70553; 71045; 72156; 72157; 80053; 81240; 81241; 81291; 82085; 82550; 82948; 83036; 83090; 83695; 83721; 84484; 85025; 85240; 85250; 85260; 85300; 85303; 85306; 85307; 85380; 85610; 85613; 85730; 86038; 86039; 86140; 86146; 86147; 92610; 93005; 93306; 94762; 96372; 96375; 97161; 97165; 99285; A9270; A9577; G0378; G0379; J1650; Q9967

== ENCOUNTER 2024-01-10 11:15 | Outpatient (CLI) | payer OTHER, SELFPAY ==
[2024-01-10 11:58] LABS: D Dimer 0.43 ug/mL (<0.48)
[2024-01-12 13:30] LABS: Factor VIII Activity 140 % normal (50-180)
[2024-01-14 22:32] LABS: Factor V (Leiden) Mutation NEGATIVE
== END 2024-01-10 11:16 | disposition home or self-care (01) ==
PROVIDERS: PCP Hospitalist; Visit Provider Student in an Organized Health Care Education/Training Program
DX: I63.9 Cerebral infarction, unspecified (principal)
CPT/HCPCS: 36415; 81241; 85240; 85250; 85260; 85303; 85306; 85380

== ENCOUNTER 2024-02-02 19:12 | Emergency (ER) | payer OTHER, SELFPAY ==
--- NOTE | ~2024-02-02 | XR_ITS ---
XR chest 2V 02/02/2024 19:47 Indication: Chest pain Procedure: 2 view chest Comparison: 12/19/2023 Findings: Heart size normal. No focal air space disease, pulmonary edema, pleural effusion or suspect ed pneumothorax. Impression: 1: No acute cardiopulmonary disease. Reviewed, dictated and finalized at location A. Impression: 1: No acute cardiopulmonary disease.
[2024-02-02 19:15] VITALS: BP 149/98; PULSE 86; RESP 15; TEMP 36.4; O2SAT 98
--- NOTE | 2024-02-02 19:18 | ECG_ITS ---
Measurements Intervals [place] Rate: 83 P: 54 IL: 134 QRS: -5 QRSD: 93 T: 94 QT: 360 QTc: 423 Interpretive Statements SINUS RHYTHM ANTERIOR INFARCT, AGE INDETERMINATE INFERIOR INFARCT, AGE INDETERMINATE ST-T WAVE ABNORMALITY IN LAT/HIGH LAT LEADS- CONSIDER ISCHEMIA ABNORMAL ECG COMPARED TO ECG 12/19/2023 10:23:55 ST-T WAVE ABNORMALITY NOW PRESENT Electronically Signed On 02-02-2024 19:50:39 CDT by Ayden Perdomo D.O.
[2024-02-02 19:41] LABS: Basophils Absolute Auto 0.1 K/mm3 (0.0-0.1); Basophils Percent Auto 0.6 % (0.2-1.2); Eosinophils Absolute Auto 0.3 K/mm3 (0-0.3); Eosinophils Percent Auto 1.9 % (0-4.4); Hematocrit 44.8 % (37.0-47.0); Hemoglobin 14.6 g/dL (12.0-15.0); Immature Granulocyte Absolute 0.19 K/mm3 (0.00-0.031); Immature Granulocyte Percent A 1.3 % (0-0.5); Lymphocytes Absolute Auto 2.58 K/mm3 (0.9-3.2); Lymphocytes Percent Auto 17.1 % (18.3-44.2); Mean Corpuscular HGB Conc 32.6 g/dl (32-36); Mean Corpuscular Hemoglobin 30.9 pg (26-34); Mean Corpuscular Volume 94.9 fl (80-100); Monocytes Percent Auto 6.7 % (2.6-8.5); Neutrophils Absolute Auto 10.9 K/mm3 (1.3-6.7); Neutrophils Percent Auto 72.4 % (45.5-73.1); Platelet Count Result 400 k/mm3 (150-375); Red Blood Count 4.72 M/mm3 (4.2-5.4); Red Cell Distribution Width 13.8 % (11.5-14.5); White Blood Count 15.1 K/mm3 (4.5-10.0)
[2024-02-02 19:50] LABS: Alanine Aminotransferase 24 U/L (6-35); Alkaline Phosphatase 120 U/L (38-126); Anion Gap 7 mmol/L (8-16); Aspartate Amino Transferase 30 U/L (14-36); Bilirubin,Total 0.4 mg/dL (0.2-1.3); Blood Urea Nitrogen 13 mg/dL (7-17); Calcium 8.9 mg/dL (8.4-10.2); Carbon Dioxide 26 mmol/L (22-30); Chloride 106 mmol/L (98-107); Estimated Glomerular Filt Rate > 60; Glucose 107 mg/dL (65-110); Lipase 100 U/L (23-300); Potassium 3.8 mmol/L (3.4-5.0); Sodium 139 mmol/L (137-145)
[2024-02-02 19:53] LABS: Partial Thromboplastin Time 39.5 Seconds (22.3-36.8)
[2024-02-02 20:01] LABS: Troponin I < 0.012 ng/mL (0.000-0.034)
[2024-02-02] MEDS: ASPIRIN 81 MG CHEWABLE TABLET 324 MG PO (22:02)
[2024-02-02 22:03] VITALS: O2SAT 99
[2024-02-02 22:04] VITALS: PULSE 81
--- NOTE | 2024-02-02 22:04 | ED.CHESTPAIN ---
HPI - Chest Pain General Chief Complaint: Chest Pain Stated Complaint: left arm pain Time Seen by Provider: 02/02/24 21:40 Source: patient Mode of arrival: ambulatory Limitations: no limitations History of Present Illness HPI narrative: This is a 38-year-old female who presents to the ED with chief complaint of left arm pain that she numbness started around 4:00 a.m. this morning. Reports a shooting sharp pain throughout the left arm from shoulder down to wrist. She reports the pain radiates to the left shoulder to the left side of the chest at times. Denies any exertional chest pain. Denies shortness of breath, nausea, vomiting, syncope, lightheadedness. Denies any known injury. 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 Related Data Home Medications Medication Instructions Recorded Confirmed aspirin 81 mg tablet,delayed 81 mg PO DAILY 12/19/23 01/31/24 release carvedilol 3.125 mg tablet 3.125 mg PO BID 12/19/23 01/31/24 clopidogrel 75 mg tablet 75 mg PO DAILY 12/19/23 01/31/24 nystatin 100,000 unit/gram topical 100,000 unit topical BID PRN Rash 12/19/23 01/31/24 cream Allergies Allergy/AdvReac Type Severity Reaction Status Date / Time No Known Allergies Allergy Mild Verified 02/02/24 19:13 Review of Systems Review of Systems: All systems as dictated in [facility] Past Medical History Medical History (Updated 02/02/24 @ 23:44 by Yassine Hurley PA-C) CAD (coronary artery disease) Social History Social History (Updated 01/31/24 @ 09:53 by Richelle Concepcion [facility]) Smoking packs per day: 1 Smoking cigarettes per day: 20.0 Years smoked: 20 Smoking pack-years: 20.00 Smoking status: Current every day smoker Tobacco type: cigarettes and e-cigarettes/vaping Second hand tobacco smoke exposure: Yes Alcohol intake: never Substance use: current Substance use type: marijuana Other substance usage details: gummies rarely Do You Feel Safe in your Home?: Yes Lack of Transportation: No Lack of Food: Sometimes True Current Housing: I Have Housing Concerned About Future Housing: No Difficulty Paying Gas/Electric Bills: YES Difficulty Paying for Meds: No Currently Unemployed: No Education: High School Diploma/GED Difficulty w/ Childcare or Family Care: No Spiritual care concerns: No Exam Narrative: GENERAL: Well-appearing, well-nourished, and in no acute distress. HEAD: Normocephalic, atraumatic. EYES: PERRLA and EOMI. ENT: Nares clear, no rhinorrhea or epistaxis. Mucous membranes moist. Oropharynx without tonsillar hypertrophy exudate or other lesions. NECK: Supple. No adenopathy or masses. CHEST: No respiratory distress. Clear to auscultation. No wheezes rales or rhonchi HEART: Regular rate and rhythm. No murmur heard. Normal peripheral pulses. ABDOMEN: Soft, nontender, nondistended, normal active bowel sounds. MSK: Right upper extremity: Benign Left upper extremity: Minimal tenderness throughout the left upper extremity. No bruising or swelling. Significant difficulty with active range of motion. Passive range of motion causes pain in the left shoulder and left elbow. Neurovascularly intact distally. SKIN: Warm, dry, no rash. NEURO: Alert and oriented x3. No focal deficits. PSYCH: Normal mood and affect. Course Vital Signs Vital signs: Vital Signs Temperature 97.5 F L 02/02/24 19:15 Pulse Rate 86 02/02/24 19:15 Respiratory Rate 15 02/02/24 19:15 Blood Pressure 149/98 H 02/02/24 19:15 Pulse Oximetry 98 02/02/24 19:15 Oxygen Delivery Room Air 02/02/24 19:15 Temperature 97.5 F L 02/02/24 19:15 Pulse Rate 80 02/03/24 00:03 Respiratory Rate 20 02/03/24 00:03 Blood Pressure 139/84 02/03/24 00:03 Pulse Oximetry 98 02/03/24 00:03 Oxygen Delivery Room Air 02/02/24 22:03 MDM - Chest Pain MDM Narrative Medical decision making narrative: This is a 38-year-old female who presents to the E
[2024-02-02 22:09] VITALS: BP 142/89; PULSE 82; RESP 20; O2SAT 97
[2024-02-02 22:36] LABS: Troponin I < 0.012 ng/mL (0.000-0.034)
[2024-02-02 22:59] LABS: Influenza A QL RT-PCR Negative (Negative); Influenza B QL RT-PCR Negative (Negative); RSV RNA, RT-PCR Negative (Negative); SARS-CoV-2 RNA PCR Negative (Negative)
[2024-02-03 00:03] VITALS: BP 139/84; PULSE 80; RESP 20; O2SAT 98
== END 2024-02-03 00:04 | disposition home or self-care (01) ==
PROVIDERS: Emergency Medicine; Emergency Provider Physician Assistant
DX: M79.602 Pain in left arm (principal); Z20.822 Contact with and (suspected) exposure to COVID-19; I25.10 Atherosclerotic heart disease of native coronary artery without angina pectoris; I25.2 Old myocardial infarction; F17.210 Nicotine dependence, cigarettes, uncomplicated; F17.290 Nicotine dependence, other tobacco product, uncomplicated; Z86.73 Personal history of transient ischemic attack (TIA), and cerebral infarction without residual deficits; Z79.82 Long term (current) use of aspirin; R94.31 Abnormal electrocardiogram [ECG] [EKG]
CPT/HCPCS: 36415; 71046; 80053; 83690; 84484; 85025; 85610; 85730; 87637; 93005; 99284; A4565; A9270

== ENCOUNTER 2024-03-01 10:17 | Outpatient (CLI) | payer OTHER, SELFPAY ==
--- NOTE | ~2024-03-01 | NM_ITS ---
EXAMINATION: NM eli stress w perfusion DATE: 03/01/2024 13:16 INDICATION: Chest pain TECHNIQUE: Rest images were obtained following intravenous administration of 9.2 mCi Tc99m tetrofosmi n (Myoview). The patient was infused intravenously with Lexiscan (Regadenoson). Then, 30.0 mCi Tc99m tetrofosmin (Myoview) was administered intravenously, and stress images were obtained initially in th e supine position on the subsequent repeat prone post stress images. Data was reconstructed into shor t axis and horizontal and vertical long axis SPECT images. Gated SPECT images were also obtained. COMPARISON: None. FINDINGS: Large moderate to severe nonreversible perfusion defect consistent with infarct involving t he apical, the inferior, septal and anterior apical and mid inferoseptal segment. Contiguous partiall y reversible perfusion defects consistent with infarct with superimposed residual ischemia at the mid anteroseptal, mid septal and apical lateral segments. Mild reversible ischemia at the mid anterolate ral segment. There is normal left ventricular chamber size. There is decreased wall wall motion and w all thickening at the apical and periapical segments. Mildly decreased left ventricular ejection frac tion measures 43%. IMPRESSION: 1. Mild reversible ischemia at the periphery of a large region of moderate to severe nonreversible in farct involving primarily the left anterior descending coronary artery vascular distribution as detai led above. 2. Mildly decreased left ventricular ejection fraction measuring 43%. Reviewed, dictated and finalized at location B. IMPRESSION: 1. Mild reversible ischemia at the periphery of a large region of moderate to s evere nonreversible infarct involving primarily the left anterior descending co ronary artery vascular distribution as detailed above. 2. Mildly decreased left ventricular ejection fraction measuring 43%.
--- NOTE | 2024-03-01 10:26 | EST_ITS ---
Patient Info Name: Rajani Yen Age: 38 years : 1985 Gender: Female Ht: 59 in Wt: 263 lbs BSA: 2.31 m2 HR: 75 bpm BP: 129 / 79 mmHg Heart Rhythm: Sinus Rhythm Exam Date: 03/01/2024 11:41 AM Exam Location: Echo Lab Patient Status: Outpatient Admit Date: 03/01/2024 Staff Ordering Physician: Ayden Perdomo DO Attending Provider: Ayden Perdomo DO Exercise Technologist: Rajani Pascal CT Exercise Physician: Ayden Perdomo DO Exam Type: CA stress eli w NM Study Info Indications R07.89 - Other chest pain A regadenoson stress test was performed. Summary 1. 1. Negative lexiscan stress test for ischemic ST changes by ECG criteria. 2. 2. Stable hemodynamics throughout the test. 3. 3. Nuclear scan to follow and will be reported separately. Please correlate with it. 4. 4. Patient informed of the above results. Protocol: Lexiscan Stress ECG Details Stage: REST Duration (min): 1 min : 46 sec HR (bpm): 74 SBP (mmHg): 129 DBP (mmHg): 79 Stage: REST Duration (min): 11 min : 0 sec HR (bpm): 72 SBP (mmHg): 129 DBP (mmHg): 79 Stage: STAGE 1 Duration (min): 0 min : 59 sec HR (bpm): 82 SBP (mmHg): 167 DBP (mmHg): 74 Stage: RECOVERY Duration (min): 1 min : 0 sec HR (bpm): 89 SBP (mmHg): 167 DBP (mmHg): 74 Stage: RECOVERY Duration (min): 2 min : 0 sec HR (bpm): 91 SBP (mmHg): 167 DBP (mmHg): 74 Stage: RECOVERY Duration (min): 3 min : 0 sec HR (bpm): 87 SBP (mmHg): 167 DBP (mmHg): 74 Stage: RECOVERY Duration (min): 4 min : 0 sec HR (bpm): 86 SBP (mmHg): 167 DBP (mmHg): 74 Stage: RECOVERY Duration (min): 4 min : 38 sec HR (bpm): 88 SBP (mmHg): 167 DBP (mmHg): 74 Rest HR: 72 bpm Peak HR: 92 bpm Rest Sys BP: 129 mmHg Peak Sys BP: 167 mmHg Max Pred HR: 184 bpm % Max Pred HR: 50 % Target HR: 156 bpm Max RPP: 15,364 bpm*mmHg Termination Reason: Completed protocol Cardiac Symptoms: Shortness of breath Total Time: 1 min : 0 sec Rest Oliver BP: 79 mmHg Peak Oliver BP: 74 mmHg Total Dose: 0.4 mg Resting ECG Sinus rhythm, anteroseptal infarct, age indeterminate. Stress ECG No ST changes. Arrhythmias None. Report Signatures
== END 2024-03-01 10:18 | disposition home or self-care (01) ==
LOC: ANHCARD 10:18
PROVIDERS: Visit Provider Internal Medicine Cardiovascular Disease
DX: R07.9 Chest pain, unspecified (principal)
CPT/HCPCS: 78452; 93017; A9502; J2785

== ENCOUNTER 2024-04-06 10:16 | Outpatient (CLI) | payer OTHER, SELFPAY ==
[2024-04-06 11:17] LABS: Alanine Aminotransferase 26 U/L (6-35); Albumin Level 4.1 g/dL (3.5-5.1); Alkaline Phosphatase 131 U/L (38-126); Anion Gap 6 mmol/L (4-12); Aspartate Amino Transferase 26 U/L (14-36); Bilirubin,Total 0.4 mg/dL (0.2-1.3); Blood Urea Nitrogen 17 mg/dL (7-17); Calcium 8.5 mg/dL (8.4-10.2); Carbon Dioxide 25 mmol/L (22-30); Chloride 106 mmol/L (98-107); Cholesterol 135 mg/dL (0-200); Estimated Glomerular Filt Rate > 60; Glucose 86 mg/dL (65-110); HDL Direct 33 mg/dL; Potassium 3.9 mmol/L (3.4-5.0); Sodium 137 mmol/L (137-145); Triglycerides 101 mg/dL (<150)
[2024-04-06 11:29] LABS: LDL Cholesterol Direct 86 mg/dL
== END 2024-04-06 10:17 | disposition home or self-care (01) ==
LOC: ANHLAB 10:18
PROVIDERS: PCP Physician Assistant Medical; Visit Provider Internal Medicine Cardiovascular Disease
DX: E78.5 Hyperlipidemia, unspecified (principal)
CPT/HCPCS: 36415; 80053; 80061

== ENCOUNTER 2024-04-18 16:32 | Outpatient (CLI) | payer OTHER, SELFPAY ==
[2024-04-18 17:34] LABS: Basophils Absolute Auto 0.1 K/mm3 (0.0-0.1); Basophils Percent Auto 0.6 % (0.2-1.2); Eosinophils Absolute Auto 0.4 K/mm3 (0-0.3); Eosinophils Percent Auto 3.1 % (0-4.4); Hematocrit 41.7 % (37.0-47.0); Hemoglobin 13.4 g/dL (12.0-15.0); Immature Granulocyte Absolute 0.17 K/mm3 (0.00-0.031); Immature Granulocyte Percent A 1.2 % (0-0.5); Lymphocytes Absolute Auto 2.37 K/mm3 (0.9-3.2); Lymphocytes Percent Auto 16.8 % (18.3-44.2); Mean Corpuscular HGB Conc 32.1 g/dl (32-36); Mean Corpuscular Volume 93.5 fl (80-100); Mean Platelet Volume 9.9 fl (7.4-10.4); Monocytes Absolute Auto 0.8 K/mm3 (0.1-0.6); Monocytes Percent Auto 5.7 % (2.6-8.5); Neutrophils Absolute Auto 10.2 K/mm3 (1.3-6.7); Neutrophils Percent Auto 72.6 % (45.5-73.1); Platelet Count Result 392 k/mm3 (150-375); Red Blood Count 4.46 M/mm3 (4.2-5.4); Red Cell Distribution Width 14.4 % (11.5-14.5); White Blood Count 14.1 K/mm3 (4.5-10.0)
[2024-04-18 18:59] LABS: Alanine Aminotransferase 26 U/L (6-35); Alkaline Phosphatase 117 U/L (38-126); Anion Gap 8 mmol/L (4-12); Aspartate Amino Transferase 29 U/L (14-36); Bilirubin,Total 0.5 mg/dL (0.2-1.3); Blood Urea Nitrogen 17 mg/dL (7-17); CRP 1.7 mg/dL (<1.0); Calcium 8.7 mg/dL (8.4-10.2); Carbon Dioxide 25 mmol/L (22-30); Chloride 104 mmol/L (98-107); Estimated Glomerular Filt Rate > 60; Glucose 96 mg/dL (65-110); Lactate Dehydrogenase 221 U/L (120-246); Potassium 3.8 mmol/L (3.4-5.0); Sodium 137 mmol/L (137-145)
[2024-04-18 20:08] LABS: Folic Acid 5.7 ng/mL (2.76->20)
[2024-04-19 12:29] LABS: Homocysteine 11.6 umol/L (<10.4)
== END 2024-04-18 16:33 | disposition home or self-care (01) ==
LOC: ANHLAB 16:34
PROVIDERS: PCP Physician Assistant Medical; Visit Provider Internal Medicine Hematology & Oncology
DX: D72.829 Elevated white blood cell count, unspecified (principal)
CPT/HCPCS: 36415; 80053; 82607; 82746; 83090; 83615; 85025; 86140; 88184

== ENCOUNTER 2024-06-21 20:57 | Observation (INO) | payer OTHER, SELFPAY ==
--- NOTE | ~2024-06-21 | XR_ITS ---
EXAMINATION: XR chest 2V DATE: 06/21/2024 22:28 INDICATION: Shortness of breath and chest pain TECHNIQUE: PA and lateral views of the chest were obtained. COMPARISON: Chest radiograph dated 02/02/2024 FINDINGS: Bilateral increased perihilar opacities. No pleural effusion or pneumothorax. Mild cardiomegaly. Chol ecystectomy clips in right upper quadrant. IMPRESSION: 1. Perihilar opacities suspicious for congestive heart failure with pulmonary edema. Differential wou ld include pneumonia. 2. Cardiomegaly. Reviewed, dictated and finalized at location A. IMPRESSION: 1. Perihilar opacities suspicious for congestive heart failure with pulmonary e ayad. Differential would include pneumonia. 2. Cardiomegaly.
[2024-06-21 22:01] VITALS: BP 151/90; PULSE 87; RESP 18; TEMP 36.3; O2SAT 97
--- NOTE | 2024-06-21 22:12 | ECG_ITS ---
Test Date: 2024-06-21 22:16:41 Measurements Intervals [place] Rate: 84 P: 47 NH: 144 QRS: -11 QRSD: 96 T: 85 QT: 374 QTc: 442 Interpretive Statements SINUS RHYTHM POSSIBLE LEFT ATRIAL ENLARGEMENT [-0.1mV P WAVE IN V1/V2] INFERIOR MYOCARDIAL INFARCTION , PROBABLY OLD [40+ ms Q WAVE AND/OR ST/T ABNORMALITY IN II/aVF] ANTEROLATERAL MYOCARDIAL INFARCTION , OF INDETERMINATE AGE [40+ ms Q WAVE IN I/aVL/V3-V6] ABNORMAL ELECTROCARDIOGRAM No previous ECG available for comparison Electronically Signed On 06-22-2024 11:21:15 CDT by Macho Almanzar M.D.
[2024-06-22] VITALS (15 sets, daily range): BP systolic 126–222; BP diastolic 67–104; PULSE 77–99; RESP 12–35; TEMP 35.6–36.7; O2SAT 92–100; BMI 54.6
[2024-06-22] MEDS: ASPIRIN 81 MG CHEWABLE TABLET 324 MG PO (00:24)
[2024-06-22 00:26] LABS: Basophils Absolute Auto 0.1 K/mm3 (0.0-0.1); Basophils Percent Auto 0.4 % (0.2-1.2); Eosinophils Absolute Auto 0.4 K/mm3 (0-0.3); Eosinophils Percent Auto 2.5 % (0-4.4); Hematocrit 40.6 % (37.0-47.0); Hemoglobin 13.5 g/dL (12.0-15.0); Immature Granulocyte Percent A 0.6 % (0-0.5); Lymphocytes Absolute Auto 2.29 K/mm3 (0.9-3.2); Lymphocytes Percent Auto 14.2 % (18.3-44.2); Mean Corpuscular HGB Conc 33.3 g/dl (32-36); Mean Corpuscular Hemoglobin 30.9 pg (26-34); Mean Corpuscular Volume 92.9 fl (80-100); Monocytes Percent Auto 5.9 % (2.6-8.5); Neutrophils Absolute Auto 12.3 K/mm3 (1.3-6.7); Neutrophils Percent Auto 76.4 % (45.5-73.1); Platelet Count Result 381 k/mm3 (150-375); Red Blood Count 4.37 M/mm3 (4.2-5.4); Red Cell Distribution Width 15.2 % (11.5-14.5); White Blood Count 16.1 K/mm3 (4.5-10.0)
[2024-06-22 00:30] LABS: Alanine Aminotransferase 19 U/L (6-35); Alkaline Phosphatase 130 U/L (38-126); Anion Gap 12 mmol/L (4-12); Aspartate Amino Transferase 23 U/L (14-36); Bilirubin,Total 0.7 mg/dL (0.2-1.3); Blood Urea Nitrogen 14 mg/dL (7-17); Calcium 8.7 mg/dL (8.4-10.2); Carbon Dioxide 28 mmol/L (22-30); Chloride 97 mmol/L (98-107); Estimated Glomerular Filt Rate > 60; Glucose 90 mg/dL (65-110); Lipase 142 U/L (23-300); Potassium 3.5 mmol/L (3.4-5.0); Sodium 137 mmol/L (137-145)
[2024-06-22 00:32] LABS: INR 0.9
[2024-06-22 00:33] LABS: Partial Thromboplastin Time 30.9 Seconds (22.3-36.8)
[2024-06-22 00:39] LABS: NT Pro B Type Natriuretic Pept 2870 pg/mL (19.9-100)
[2024-06-22 00:43] LABS: Troponin I 0.041 ng/mL (0.000-0.034)
--- NOTE | 2024-06-22 00:44 | ED.GENADULT ---
HPI - General Adult General Chief complaint: Shortness of Breath/Dyspnea Stated complaint: sob Time Seen by Provider: 06/22/24 00:17 History of Present Illness HPI narrative: Patient 39-year-old female who presents emergency department with chief complaint of shortness of breath. Patient reports that since Tuesday she has been having chest tightness and shortness of breath worse with exertion. The patient reports she has noticed her legs have been a little bit more swollen reports she has prior history of a heart attack and 2022 and also had a stroke in 2023 the patient reports she takes aspirin and also takes Plavix Related Data Home Medications Medication Instructions Recorded Confirmed aspirin 81 mg tablet,delayed 81 mg PO DAILY 12/19/23 03/05/24 release carvedilol 3.125 mg tablet 3.125 mg PO BID 12/19/23 03/05/24 clopidogrel 75 mg tablet 75 mg PO DAILY 12/19/23 03/05/24 nystatin 100,000 unit/gram topical 100,000 unit topical BID PRN Rash 12/19/23 03/05/24 cream Allergies Allergy/AdvReac Type Severity Reaction Status Date / Time No Known Allergies Allergy Mild Verified 06/21/24 22:10 Review of Systems Review of Systems: A 10 system review of systems was completed on the patient and is negative except for what is stated in the HPI. Nursing and ancillary documentation was reviewed. [facility] Past Medical History Medical History CAD (coronary artery disease) Social History Social History Smoking packs per day: 0.5 Smoking cigarettes per day: 10.0 Years smoked: 20 Smoking pack-years: 10.00 Smoking status: Current every day smoker Tobacco type: cigarettes and e-cigarettes/vaping Second hand tobacco smoke exposure: Yes Alcohol intake: never Substance use: current Substance use type: marijuana Other substance usage details: gummies rarely Do You Feel Safe in your Home?: Yes Lack of Transportation: No Lack of Food: Never True Current Housing: I Have Housing Concerned About Future Housing: YES Difficulty Paying Gas/Electric Bills: YES Difficulty Paying for Meds: No Currently Unemployed: No Education: High School Diploma/GED Difficulty w/ Childcare or Family Care: No Spiritual care concerns: No Exam Narrative: GENERAL: Well-appearing, well-nourished, and in no acute distress. HEAD: Normocephalic, atraumatic. EYES: PERRLA and EOMI. ENT: Nares clear, no rhinorrhea or epistaxis. Mucous membranes moist. NECK: Supple. CHEST: Clear to auscultation. No respiratory distress. HEART: Regular rate and rhythm. No murmur heard. Normal peripheral pulses. ABDOMEN: Soft, nontender, nondistended, normal active bowel sounds. EXTREMITIES: Normal range of motion. No edema. SKIN: Warm, dry, no rash. NEURO: No focal deficits. Alert and oriented x3. PSYCH: Normal mood and affect. Course Vital Signs Vital signs: Vital Signs Temperature 36.3 C L 06/21/24 22:01 Pulse Rate 87 06/21/24 22:01 Respiratory Rate 18 06/21/24 22:01 Blood Pressure 151/90 H 06/21/24 22:01 Pulse Oximetry 97 06/21/24 22:01 Oxygen Delivery Room Air 06/21/24 22:01 Temperature 36.7 C 06/22/24 00:13 Pulse Rate 94 06/22/24 00:14 Respiratory Rate 35 H 06/22/24 00:13 Blood Pressure 222/104 H 06/22/24 00:13 Pulse Oximetry 95 06/22/24 00:15 Oxygen Delivery Room Air 06/22/24 00:15 Medical Decision Making [facility] Narrative Medical decision making narrative: Differential diagnosis includes ACS, CHF, pneumonia, EKG showed no acute ischemic changes Laboratory studies were obtained which showed a BNP of 2870 initial troponin 0.041 [place] [address] A chest x-ray showed 1. Perihilar opacities suspicious for congestive heart failure with pulmonary edema. Differential would include pneumonia. 2. Cardiomegaly. Patient gi
[2024-06-22] MEDS: FUROSEMIDE INJ 40 MG/4 ML VIAL IV PUSH ×2 (00:45→08:36)
--- NOTE | 2024-06-22 02:16 | ADMGEN ---
0218 This patient, Rajani Yen, was admitted to IMU Room 214-01. Patient/family oriented to hospital policies and general routines including ID bracelet, bed and alarms, visiting hours, pain management, procedures, bathroom and other care routines, personal items, smoking policy, room service/diet, and visiting hours. Information on how to activate the Rapid Response Team has been discussed. Patient/Family are encouraged to report perceived risks to care and to ask questions if they do not understand what they are told or what they should do.
[2024-06-22 07:02] LABS: Troponin I 0.032 ng/mL (0.000-0.034)
--- NOTE | 2024-06-22 09:24 | PM.IMHP ---
H&P: HPI History of Present Illness Date/Time: 06/22/24 09:24 Chief Complaint: Shortness of breath and leg swelling Narrative: This is a 39-year-old female presenting with complaint of chest tightness shortness of breath worse on exertion and leg swelling for approximately 5 days. She has a history of morbid obesity, active tobacco abuse, dyslipidemia, sleep apnea (sleep study completed 2022 has not yet received NIV), unexplained leukocytosis (following with Dr. 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 Queen), CVA in 12/2023 w/o residual deficit (slurred speech left facial droop at [facility]), CAD (DC s/p cardiac cath at [facility] in 2022, follows with Dr. Perdomo). [place] [facility] evaluation reveals blood pressure 126/72, saturating well on room air, BNP 2870, troponin 0.04, EKG sinus rhythm, no acute ischemic changes, QTC 442. Patient admitted on 06/22/2024 for shortness of breath, lower extremity edema, chest tightness, positive troponin, in suspected new onset heart failure. Review of Systems Review of Systems: All systems reviewed & are unremarkable except as noted in HPI and below (Subjective) [facility] Past Medical History Medical History (Updated 06/22/24 @ 09:44 by Mecca Patricia MD) CAD (coronary artery disease) Sleep apnea Family History Family History (Updated 06/22/24 @ 02:40 by Star Garcia RN) Other Breast cancer Diabetes mellitus Social History Social History Smoking packs per day: 0.5 Smoking cigarettes per day: 10.0 Years smoked: 20 Smoking pack-years: 10.00 Smoking status: Current every day smoker Tobacco type: cigarettes and e-cigarettes/vaping Second hand tobacco smoke exposure: Yes Alcohol intake: never Substance use: current Substance use type: marijuana Other substance usage details: gummies rarely Do You Feel Safe in your Home?: Yes Lack of Transportation: No Lack of Food: Never True Current Housing: I Have Housing Concerned About Future Housing: No Difficulty Paying Gas/Electric Bills: No Difficulty Paying for Meds: No Currently Unemployed: No Education: High School Diploma/GED Difficulty w/ Childcare or Family Care: No Spiritual care concerns: No Meds Home Medications and Allergies Home Medications Medication Instructions Recorded Confirmed Type aspirin 81 mg tablet,delayed 81 mg PO DAILY 12/19/23 06/22/24 History release carvedilol 3.125 mg tablet 3.125 mg PO BID 12/19/23 06/22/24 History clopidogrel 75 mg tablet 75 mg PO DAILY 12/19/23 06/22/24 History atorvastatin 40 mg tablet 40 mg PO DAILY #30 tabs 12/22/23 06/22/24 Rx acetaminophen 500 mg tablet 1,000 mg PO BID 06/22/24 06/22/24 History meloxicam 15 mg PO DAILY 06/22/24 06/22/24 History vitamin B complex 1 tablet PO DAILY 06/22/24 06/22/24 History Allergies Allergy/AdvReac Type Severity Reaction Status Date / Time No Known Allergies Allergy Mild Verified 06/21/24 22:10 Vital Signs Vital Signs - 24 hr 06/21/24 22:01 06/22/24 00:13 06/22/24 00:14 Temperature 97.4 F L 98.1 F Pulse Rate 87 94 94 Respiratory Rate 18 35 H Blood Pressure 151/90 H 222/104 H Pulse Oximetry 97 93 Oxygen Delivery Room Air 06/22/24 00:14 06/22/24 00:15 06/22/24 01:03 Temperature 97.9 F Pulse Rate 99 Respiratory Rate 30 H Blood Pressure 153/89 H Pulse Oximetry 95 95 92 Oxygen Delivery Room Air Room Air 06/22/24 02:30 06/22/24 03:02 06/22/24 03:33 Temperature 97.4 F L Pulse Rate 89 Respiratory Rate 20 32 H Blood Pressure 130/76 Pulse Oximetry 95 95 Oxygen Delivery Room Air BiPAP 06/22/24 04:13 06/22/24 04:00 06/22/24 05:28 Temperature 97.4 F L Pulse Rate 89 91 91 Respiratory Rate 20 Blood Pressure 126/72 Pulse Oximetry 95 Oxygen Delivery 06/22/24 08:00 06/22/24 08:00 Temperature 97.2 F
[2024-06-22] MEDS: CLOPIDOGREL BISULFATE 75 MG TABLET PO (10:13)
[2024-06-22] MEDS: ENOXAPARIN 40 MG/0.4 ML SYRINGE SUB-Q (10:13)
[2024-06-22] MEDS: ATORVASTATIN 40 MG TABLET PO (10:13)
--- NOTE | 2024-06-22 12:42 | PM.CNCAR ---
Assessment and Plan Assessment and plan (1) New onset of congestive heart failure: Code(s): I50.9 - Heart failure, unspecified Status: Acute Plan This is a 39-year-old woman presenting with shortness of breath and orthopnea evidence of left-sided congestive heart failure upon arrival to the hospital which has responded very quickly to furosemide. She is known to have normal left ventricular systolic function and she is known not to have coronary artery disease as described above. We do not have to be concerned about conducting an ischemia evaluation in this lady who is known to have non diseased coronary arteries. The most likely diagnosis therefore is diastolic dysfunction resulting in this shortness of breath and volume overload. I will transition her from IV to oral furosemide at this time since she is rapidly becoming asymptomatic. I am also going to add oral Jardiance to the regimen. For some reason her carvedilol has not been ordered for resumed I will go ahead and take care of that. I would expect this lady to be able to be discharged in the next 24-48 hours as she is rapidly becoming asymptomatic with diuresis. Macho Almanzar MD [facility] ( for [place]) History of Present Illness History of Present Illness Consult date/time: 06/22/24 12:42 Reason For Visit: New onset CHF elevated troponin Narrative: This is a 39-year-old woman I am asked to see at the request of the hospitalist and in place of Dr. Perdomo because of congestive heart failure. The patient is unknown to me prior to this encounter. She is a lady with a history of morbid obesity, some hypertension and recent diagnosis of sleep apnea for which she is still awaiting for arrival of her BiPAP device that she has been prescribed for her. She came to the hospital because of worsening shortness of breath for the last 6-7 days to the point where with minimal activity she was short of breath and had difficulty lying down without significant dyspnea. Her chest x-ray on arrival appears to show significant bilateral congestion from the mid lung field down to the base. She was started on furosemide intravenously last evening and states she feels dramatically better at this time. She is very comfortable at this time and offers no other complaints. The notes in the chart indicates she is a lady with coronary artery disease and previous myocardial infarction. My review of the chart does not seem to support that concept. The patient was brought to the catheter finisher and inspector at [facility] in 2021 according to which he tells me in found to have non diseased coronary arteries. Dr. Vigil office notes indicate she was recently evaluated because of symptoms of dyspnea with a Lexiscan nuclear stress test after which he referred the patient to [facility] for a CT coronary angiogram which was also normal. The patient therefore in the last less than 2 years has had 2 normal coronary angiograms. Her baseline medical regimen at home includes aspirin, atorvastatin and very low dose of carvedilol she also takes clopidogrel because of a previous CVA. Her left ventricular systolic function is known to be normal based on echocardiographic findings earlier this year. Review of Systems Constitutional: Constitutional: Reports lethargy Eyes: Eyes: Reports no additional eye complaints ENT: Reports system reviewed and no additional complaints, except as documented Cardiovascular: Cardiovascular: Reports pedal edema Respiratory: Respiratory: Reports dyspnea on exertion Gastrointestinal: Gastrointestinal: Reports no additional gastrointestinal complaints Musculoskeletal: Musculoskeletal: Reports no additional musculoskeletal complaints Integumentary/Breasts: Skin/Breast: Reports system reviewed and no additional complaints, except as docu Neurologic: Comments: Alert and oriented x3 Endocrine: Endocrine: Reports no additional endocrine complaints Allergic/Immunologic: Allergic/Im
--- NOTE | 2024-06-22 13:55 | PDONCCN ---
HPI - Date of Consult Date/Time: 06/22/24 13:55 Requesting Physician: Elisa Platt DO Primary Care Provider: Man Paula, PA - Consult Narrative Reason for consult: Hypercoagulable state Narrative: Rajani Yen is a 39 year old female with history of reactive leukocytosis and thrombocytosis and hypercoagulable state with MTHFR heterozygous state and elevated homocystine level. She was last seen in the office on May 02. She was told to continue vitamin B12 and folic acid along with aspirin and Plavix. Patient now came into the hospital with increasing shortness of breath and lower extremity edema. Chest x-ray was performed that showed perihilar opacities suspicious for congestive heart failure and pulmonary edema along with cardiomegaly. Patient was seen by the [employer] and diuretics were started with improvement in shortness of breath and swelling. She denies any chest pain. Denies any leg pain. No bleeding and bruising. No other new complaints. Labs showed elevated WBC count of 16.1 and platelet count of 042523 which is about her baseline. Review of Systems - Review of Systems All systems reviewed & are unremarkable except as noted in HPI and [facility] Medical History: Medical History (Last Updated 06/22/24 @ 09:44 by Mecca Patricia MD) CAD (coronary artery disease) Sleep apnea Family History: Family History (Last Updated 06/22/24 @ 02:40 by Star Garcia RN) Other Breast cancer Diabetes mellitus - Social History Social History: Social History (Last Reviewed 06/22/24 @ 00:46 by Kamaljit Rice MD) Alcohol Use: Alcohol intake: never Substance Use: Substance use: current Substance use type: marijuana Other substance usage details: gummies rarely Others: Spiritual care concerns: No Smoking Status: Smoking status: Current every day smoker Tobacco type: cigarettes Tobacco type: e-cigarettes/vaping Second hand tobacco smoke exposure: Yes Smoking Pack-years: Smoking packs per day: 0.5 Smoking cigarettes per day: 10.0 Years smoked: 20 Smoking pack-years: 10.00 Social Determinants of Health: Do You Feel Safe in your Home?: Yes Has the Lack of Transportation Kept You From Medical Appointments or From Getting Medications?: No Within the Past 12 Months, Were You Worried Whether Your Food Would Run Out Before You Got Money to Buy More?: Never True What is Your Housing Situation Today?: I Have Housing Are You Worried That in the Next 2 Months, You May Not Have Your Own Housing to Live In?: No Do You Have Trouble Paying Your Heating Or Electricity Bill?: No Do You Have Trouble Paying For Medicines?: No Are You Currently Unemployed and Looking for Work?: No Highest Level of Education Completed: High School Diploma/GED Do You Have Trouble With Childcare or the Care of a Family Member?: No Exam - Vital Signs Vital Signs - 24 hr 06/21/24 22:01 06/22/24 00:13 06/22/24 00:14 Temperature 36.3 C L 36.7 C Pulse Rate 87 94 94 Respiratory Rate 18 35 H Blood Pressure 151/90 H 222/104 H Pulse Oximetry 97 93 Oxygen Delivery Room Air 06/22/24 00:14 06/22/24 00:15 06/22/24 01:03 Temperature 36.6 C Pulse Rate 99 Respiratory Rate 30 H Blood Pressure 153/89 H Pulse Oximetry 95 95 92 Oxygen Delivery Room Air Room Air 06/22/24 02:30 06/22/24 03:02 06/22/24 03:33 Temperature 36.3 C L Pulse Rate 89 Respiratory Rate 20 32 H Blood Pressure 130/76 Pulse Oximetry 95 95 Oxygen Delivery Room Air BiPAP 06/22/24 04:13 06/22/24 04:00 06/22/24 05:28 Temperature 36.3 C L Pulse Rate 89 91 91 Respiratory Rate 20 Blood Pressure 126/72 Pulse Oximetry 95 Oxygen Delivery 06/22/24 08:00 06/22/24 08:00 06/22/24 08:00 Temperature 36.2 C L Pulse Rate 77 79 Respiratory Rate 12 Blood Pressure 135/71 Pulse Oximetry 93 Oxygen
--- NOTE | 2024-06-22 13:56 | ECHO_ITS ---
Patient Info Name: Rajani Yen Age: 39 years : 1985 Gender: Female Ht: 59 in Wt: 270 lbs BSA: 2.35 m2 HR: 79 bpm BP: 135 / 71 mmHg Heart Rhythm: Sinus Rhythm Technical Quality: Good Exam Date: 06/22/2024 3:07 PM Exam Location: Echo Lab Patient Status: Outpatient Admit Date: 06/22/2024 Staff Ordering Physician: Kamaljit Rice MD Electrical/Instrument Technician: Natalya Webber RDCS Attending Provider: Elisa Platt DO Referring Physician: Dwayne DENT; Exam Type: CA echo doppler color flow Study Info Indications - new onset chf Complete two-dimensional, color flow and Doppler transthoracic echocardiogram is performed. Summary 1. Complete two-dimensional, color flow and Doppler transthoracic echocardiogram is performed. 2. Technically difficult study because of obesity. 3. Modest left ventricular enlargement with mildly reduced systolic function ejection fraction 40-45%. 4. Mild mitral regurgitation. Left Ventricle Left ventricular chamber dimension is mildly enlarged. Left ventricular systolic function is mildly reduced, estimated at 45-50%. The left ventricular diastolic function is grade I diastolic dysfunction. Right Ventricle Right ventricular chamber dimension is normal. Left Atria Left atrial chamber dimension is normal. Right Atria Right atrial chamber dimension is normal. Aortic Valve The aortic valve is normal. Pulmonic Valve The pulmonic valve is not well visualized. Mitral Valve The mitral valve has normal leaflets. There is mild mitral valve regurgitation. Tricuspid Valve The tricuspid valve leaflets are normal. Pericardium/Pleural The pericardium appears normal. Aorta The aortic root size at the sinus of Valsalva is normal. Left Ventricular Outflow Tract Name Value Normal LVOT 2D LVOT Diameter 2.0 cm LVOT Doppler LVOT Peak Gradient 6 mmHg LVOT Mean Gradient 4 mmHg LVOT VTI 27 cm LVOT VTI/AV VTI Ratio 0.8 LVOT Stroke Volume 84 ml LVOT CO 5.9 l/min LVOT CI 2.5 l/min/m2 Pulmonic Valve Name Value Normal PV Doppler PV Peak Gradient 4 mmHg Mitral Valve Name Value Normal MV Doppler MV Decel [place] 639 cm/s2 MV PHT 55 ms MV Area (PHT) 4.0 cm2 4.0-5.0 MV Regurgitation Doppler MR Peak Gradient 83 mmHg MV Diastolic Function
--- NOTE | 2024-06-22 14:00 | PC.NURSE ---
This patient, Rajani Yen, was transferred to [[id number] ] on 06/22/24 at 1400. Personal belongings sent with patient. Report given to [ MASON Ryan @ [phone]]. Appropriate documentation sent with patient.
--- NOTE | 2024-06-22 15:40 | ADMGEN ---
This patient, Rajani Yen, was transferred to Medical Room 248-01 at approximately 1445 Information on how to activate the Rapid Response Team has been discussed. Patient/Family are encouraged to report perceived risks to care and to ask questions if they do not understand what they are told or what they should do.
[2024-06-22] MEDS: carvediloL 3.125 MG TABLET PO (21:27)
[2024-06-23] VITALS: BP 132/71; PULSE 75; RESP 20; TEMP 37; O2SAT 92
[2024-06-23 02:52] VITALS: RESP 20; O2SAT 95
[2024-06-23 03:56] LABS: Hemoglobin A1C 5.8 % (<5.7)
[2024-06-23 04:29] LABS: Basophils Absolute Auto 0.1 K/mm3 (0.0-0.1); Basophils Percent Auto 0.6 % (0.2-1.2); Eosinophils Absolute Auto 0.4 K/mm3 (0-0.3); Hematocrit 39.5 % (37.0-47.0); Hemoglobin 12.7 g/dL (12.0-15.0); Immature Granulocyte Absolute 0.07 K/mm3 (0.00-0.031); Immature Granulocyte Percent A 0.5 % (0-0.5); Lymphocytes Absolute Auto 1.55 K/mm3 (0.9-3.2); Lymphocytes Percent Auto 11.7 % (18.3-44.2); Mean Corpuscular HGB Conc 32.2 g/dl (32-36); Mean Corpuscular Hemoglobin 30.5 pg (26-34); Mean Platelet Volume 10.2 fl (7.4-10.4); Monocytes Absolute Auto 0.8 K/mm3 (0.1-0.6); Monocytes Percent Auto 6.1 % (2.6-8.5); Neutrophils Absolute Auto 10.3 K/mm3 (1.3-6.7); Neutrophils Percent Auto 78.1 % (45.5-73.1); Platelet Count Result 345 k/mm3 (150-375); Red Blood Count 4.16 M/mm3 (4.2-5.4); Red Cell Distribution Width 15.1 % (11.5-14.5); White Blood Count 13.2 K/mm3 (4.5-10.0)
[2024-06-23 04:39] LABS: Anion Gap 10 mmol/L (4-12); Blood Urea Nitrogen 16 mg/dL (7-17); Calcium 8.6 mg/dL (8.4-10.2); Carbon Dioxide 26 mmol/L (22-30); Chloride 99 mmol/L (98-107); Estimated Glomerular Filt Rate > 60; Glucose 117 mg/dL (65-110); Potassium 3.2 mmol/L (3.4-5.0); Sodium 135 mmol/L (137-145)
[2024-06-23 04:56] LABS: Procalcitonin 0.1 ng/mL
[2024-06-23] MEDS: ATORVASTATIN 40 MG TABLET PO (08:54)
[2024-06-23] MEDS: ASPIRIN 81 MG ENTERIC TABLET PO (08:54)
[2024-06-23] MEDS: CLOPIDOGREL BISULFATE 75 MG TABLET PO (08:54)
[2024-06-23 08:55] VITALS: PULSE 80
[2024-06-23] MEDS: EMPAGLIFLOZIN 10 MG TABLET PO (08:55)
[2024-06-23] MEDS: FUROSEMIDE 20 MG TABLET PO (08:55)
[2024-06-23] MEDS: carvediloL 3.125 MG TABLET PO (08:55)
[2024-06-23] MEDS: ENOXAPARIN 40 MG/0.4 ML SYRINGE SUB-Q (08:55)
--- NOTE | 2024-06-23 09:24 | PM.DS ---
DS: Admitting Diagnosis Discharge Date 06/23/2024 Admitting Diagnosis Worsening shortness of breath DS: Discharge Diagnosis Discharge Diagnosis (1) New onset of congestive heart failure: Code(s): I50.9 - Heart failure, unspecified Status: Acute (2) CAD (coronary artery disease): Code(s): I25.10 - Atherosclerotic heart disease of [place] coronary artery without angina pectoris Status: Acute (3) CVA (cerebral vascular accident): Code(s): I63.9 - Cerebral infarction, unspecified Status: Acute (4) Morbid obesity with BMI of 50.0-59.9, adult: Code(s): E66.01 - Morbid (severe) obesity due to excess calories; Z68.43 - Body mass index [BMI] 50.0-59.9, adult Status: Acute (5) Tobacco dependence: Code(s): F17.200 - Nicotine dependence, unspecified, uncomplicated Status: Acute (6) Elevated homocysteine: Code(s): R79.89 - Other specified abnormal findings of blood chemistry Status: Acute (7) Elevated troponin: Code(s): R79.89 - Other specified abnormal findings of blood chemistry Status: Acute (8) Sleep apnea: Code(s): G47.30 - Sleep apnea, unspecified Status: Acute DS: Summary Time Spent with Patient Time attestation: Total time spent providing and/or coordinating discharge services: DS: Data Data Completed and Pending Labs on day of discharge: Labs from last 24 hours 06/23/24 06/22/24 04:01 00:10 WBC 13.2 H RBC 4.16 L Hgb 12.7 Hct 39.5 MCV 95.0 MCH 30.5 MCHC 32.2 RDW 15.1 H Plt Count 345 MPV 10.2 Immature Gran % (Auto) 0.5 Neut % (Auto) 78.1 H Lymph % (Auto) 11.7 L [place] % (Auto) 6.1 Eos % (Auto) 3.0 Baso % (Auto) 0.6 Lymph # (Auto) 1.55 [place] # (Auto) 0.8 H Eos # (Auto) 0.4 H Baso # (Auto) 0.1 Abs Immat Gran (auto) 0.07 H Absolute Neuts (auto) 10.3 H Absolute Nucleated RBC 0.000 Nucleated RBC % 0.0 Sodium 135 L Potassium 3.2 L Chloride 99 Carbon Dioxide 26 Anion Gap 10 BUN 16 Creatinine 0.50 L Estim Creat Clear Calc Not Reportable Estimated GFR > 60 Glucose 117 H Hemoglobin A1c 5.8 H Calcium 8.6 Magnesium 2.0 Procalcitonin 0.1 Discharge Plan Discharge Attending physician on discharge: Kamaljit Pascal Consulting providers: Macho Almanzar; Jose R Queen Discharging Clinician: Greer Steele Patient Disposition: Home, Self-Care Activity: as tolerated Diet: heart healthy, low sodium and low cholesterol Patient Instructions: Clopidogrel (By mouth), Heart Failure (GEN), How to Stop Smoking (DC), DASH Eating Plan (GEN) Stand Alone Forms: General Discharge Information, Work/School Release IP Follow-up/Referrals: Jose R Queen MD [Physician] - Keep Reg. Scheduled Appt. Ayden Perdomo DO [Physician] - 4 Weeks (Call for appointment) Discharge Medications: New Jardiance 10 mg Tablet 10 mg PO DAILY Qty: 30 0RF losartan 25 mg Tablet 25 mg PO DAILY Qty: 30 0RF furosemide 20 mg Tablet 20 mg PO DAILY Qty: 30 0RF Continued acetaminophen 500 mg tablet 1,000 mg PO BID vitamin B complex Tablet 1 tablet PO DAILY meloxicam 15 mg PO DAILY clopidogrel 75 mg tablet 75 mg PO DAILY aspirin 81 mg tablet,delayed release (DR/EC) 81 mg PO DAILY carvedilol 3.125 mg tablet 3.125 mg PO BID atorvastatin 40 mg Tablet 40 mg PO DAILY Qty: 30 2RF Date of admission: 06/22/24 01:09 Primary Care Provider: Chai,Man Salazar Admitting Provider: Elisa Platt Attending physician on admission: Greer Steele Condition: Stable
--- NOTE | 2024-06-23 11:16 | PM.PNCARD ---
Progress Note: A&P Assessment and Plan (1) New onset of congestive heart failure: Code(s): I50.9 - Heart failure, unspecified Status: Acute Plan 39-year-old white female with morbid obesity, congestive heart failure mild LV systolic dysfunction she has now been compensated with diuresis and is doing well. Because of her modestly reduced ejection fraction I will add ARB treatment in the form of losartan to achieved good guideline directed medical therapy. She does appear to be stable enough for discharge in her follow-up will be with Dr. Perdomo who is established with her for ongoing care Macho Almanzar MD [facility] ( for [facility]) Subjective Date/time seen: date of service:06/23/24 11:16 Interval history: Follow-up visit in this 39-year-old woman with: Congestive heart failure this is a new diagnosis for this lady who is known to have diseased coronary arteries. She has had a nice response to diuresis with furosemide. She is feeling well today and is status essentially asymptomatic. Her echocardiogram demonstrated very mild LV systolic dysfunction and so I discussed with her today and recommended starting an ARB/ losartan. She says that she remembers being on this medication in the past Exam Const: General: comfortable and no acute distress Other: obese white female pleasant comfortable cooperative HENMT: Mouth: Yes moist mucous membranes Eyes: Sclera: sclerae normal Neck: Neck: supple Resp: Effort & Inspection: normal respiratory effort Auscultation: clear to auscultation bilaterally Cardio: Rate: regular rate Rhythm: regular rhythm Other: occult toward exam unremarkable, cannot palpate PM body habitus GI: GI Palp: Yes Soft to palpation Auscultation: normal bowel sounds Skin: General skin exam: normal color Neuro: Other: alert and oriented x3 Extrem: Other: no edema, normal perfusion Objective Data Vital Signs Vital Signs: Vital Signs - 24 hr 06/22/24 16:00 06/22/24 19:37 06/22/24 21:27 Temperature 36.2 C L 35.6 C L Pulse Rate 85 79 79 Respiratory Rate 16 20 Blood Pressure 131/67 128/70 Pulse Oximetry 100 93 Oxygen Delivery 06/23/24 00:00 06/23/24 02:52 06/23/24 08:55 Temperature 37.0 C Pulse Rate 75 80 Respiratory Rate 20 20 Blood Pressure 132/71 Pulse Oximetry 92 95 Oxygen Delivery BiPAP Intake/Output Intake/Output: Intake & Output 06/20/24 06/21/24 06/22/24 06/23/24 23:59 23:59 23:59 23:59 Intake Total 1200 440 Output Total 1050 Balance 150 440 Meds/Results Medications: Active Medications Generic Name Dose Route Start Last Admin Trade Name Freq PRN Reason Stop Dose Admin Aspirin 81 mg 06/23/24 09:00 06/23/24 08:54 Aspirin 81 Mg Enteric Tablet PO 81 mg DAILY DAVIDA Administration Atorvastatin Calcium 40 mg 06/22/24 09:35 06/23/24 08:54 Atorvastatin 40 Mg Tablet PO 40 mg DAILY DAVIDA Administration Carvedilol 3.125 mg 06/22/24 21:00 06/23/24 08:55 Carvedilol 3.125 Mg Tablet PO 3.125 mg Q12HR DAVIDA Administration Clopidogrel Bisulfate 75 mg 06/22/24 09:35 06/23/24 08:54 Clopidogrel Bisulfate 75 Mg Tablet PO 75 mg DAILY DAVIDA Administration Empagliflozin 10 mg 06/23/24 09:00 06/23/24 08:55 Empagliflozin 10 Mg Tablet PO 10 mg DAILY DAVIDA Administration Enoxaparin Sodium 40 mg 06/22/24 10:05 06/23/24 08:55 Enoxaparin 40 Mg/0.4 Ml Syringe SUB-Q 40 mg DAILY DAVIDA Administration Furosemide 20 mg 06/23/24 09:00 06/23/24 08:55 Furosemide 20 Mg Tablet PO 20 mg DAILY DAVIDA Administration Perflutren Lipid Microsphere 0 ml 06/22/24 01:09 Perflutren Lipid Microspheres 1.5 Ml Vial Diluted To 10 Ml Total Volume IV PUSH 06/25/24 01:12 ONCE PRN adequate visualization Protocol Radiology Results: ITS Impressions Chest X-Ray 06/21/24 22:31 IMPRESSION: 1. Perihilar opacities suspicious for congestive heart failur
[2024-06-23 11:25] VITALS: BP 121/81
[2024-06-23] MEDS: LOSARTAN POTASSIUM 25 MG TABLET PO (11:26)
[2024-06-23 14:00] VITALS: BP 118/66; PULSE 63; RESP 16; TEMP 36.1; O2SAT 97
--- NOTE | 2024-06-23 16:17 | PM.DS ---
DS: Admitting Diagnosis Discharge Date 06/23/2024 Admitting Diagnosis Shortness of breath with LE edema DS: Discharge Diagnosis Discharge Diagnosis (1) New onset of congestive heart failure: Code(s): I50.9 - Heart failure, unspecified Status: Acute Assessment and Plan: - Diuresed with IV lasix and transitioned to oral. - 2 D ECHO 06/23/24 showing LVEF 40-45 %. - Started on Losartan per social worker health services to achieve GDMT. - Educated on heart healthy diet with low Na, low cholesterol. (2) Elevated troponin: Code(s): R79.89 - Other specified abnormal findings of blood chemistry Status: Acute Assessment and Plan: - Possibly demand ischemia related to CHF exacerbation. - Resolved with CHF management. - Pt had cardiac cath done 2022 that showed non-diseased coronaries, and recently had CT coronary angiogram that was negative. - Continue f/u with social worker health services. (3) Sleep apnea: Code(s): G47.30 - Sleep apnea, unspecified Status: Acute Assessment and Plan: - Pt had sleep study done recently and awaiting NIV. (4) Elevated homocysteine: Code(s): R79.89 - Other specified abnormal findings of blood chemistry Status: Acute Assessment and Plan: - Pt following up with rn school. - Improving per rn school. - Continue outpatient f/u with rn school. (5) Dyslipidemia: Code(s): E78.5 - Hyperlipidemia, unspecified Status: Acute Assessment and Plan: - Continue statin. - Low fat, low cholesterol diet. (6) Hypertension: Code(s): I10 - Essential (primary) hypertension Status: Acute Assessment and Plan: - Well controlled. - Continue Losartan and Coreg. (7) CAD (coronary artery disease): Code(s): I25.10 - Atherosclerotic heart disease of [place] coronary artery without angina pectoris Status: Acute Assessment and Plan: Stable. - Cardiac cath 2022 showed non-diseased coronaries, with recent CT coronary angiogram negative. - Continue aspirin, clopidogrel, coreg and statin. - Continue f/u with social worker health services. (8) CVA (cerebral vascular accident): Code(s): I63.9 - Cerebral infarction, unspecified Status: Acute Assessment and Plan: - Continue aspirin, clopidogrel, and statin. (9) Tobacco dependence: Code(s): F17.200 - Nicotine dependence, unspecified, uncomplicated Status: Acute Assessment and Plan: - Encouraged with cessation. - Declines nicotine patch. (10) Morbid obesity with BMI of 50.0-59.9, adult: Code(s): E66.01 - Morbid (severe) obesity due to excess calories; Z68.43 - Body mass index [BMI] 50.0-59.9, adult Status: Acute Assessment and Plan: - Encouraged with lifestyle modification including diet and exercise. DS: Summary Hospital Course Reason for hospitalization: Worsening shortness of breath Hospital Course: This is a 39-year-old female who presented with chest tightness, shortness of breath worse on exertion and leg swelling for approximately 5 days. She has a history of morbid obesity, active tobacco abuse, dyslipidemia, sleep apnea (sleep study completed 2022 has not yet received NIV), reactive leukocytosis per Investigation Manager Dr. 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 Pt also recently had CT coronary angiogram that was negative. Pt follows up with Dr. Perdomo. [facility] ER evaluation on admission revealed blood pressure 126/72, saturating well on room air, BNP 2870, troponin 0.04, EKG sinus rhythm, no acute ischemic changes, QTC 442. Patient was admitted on 06/22/2024 for suspected new onset heart failure. Pt was diuresed by Greta and responded positively, with her SOB resolved, and EARLINE stoddard
== END 2024-06-23 19:04 | disposition home or self-care (01) ==
LOC: ANHED 06-22 00:48 → ANHIMU 06-22 02:52 → ANH2MED 06-23 09:27 → ANHIMU 06-25 10:35
PROVIDERS: General Practice; Admitting Provider Internal Medicine; Emergency Provider Emergency Medicine; PCP Physician Assistant Medical; Visit Provider Nurse Practitioner Adult Health
DX: I11.0 Hypertensive heart disease with heart failure (principal); I50.33 Acute on chronic diastolic (congestive) heart failure; R79.89 Other specified abnormal findings of blood chemistry; R94.39 Abnormal result of other cardiovascular function study; R06.02 Shortness of breath; M79.89 Other specified soft tissue disorders; D72.829 Elevated white blood cell count, unspecified; D75.839 Thrombocytosis, unspecified; I25.2 Old myocardial infarction; E72.12 Methylenetetrahydrofolate reductase deficiency; I25.10 Atherosclerotic heart disease of native coronary artery without angina pectoris; E78.5 Hyperlipidemia, unspecified; G47.33 Obstructive sleep apnea (adult) (pediatric); F17.290 Nicotine dependence, other tobacco product, uncomplicated; F12.90 Cannabis use, unspecified, uncomplicated; Z86.73 Personal history of transient ischemic attack (TIA), and cerebral infarction without residual deficits; Z79.82 Long term (current) use of aspirin; Z79.02 Long term (current) use of antithrombotics/antiplatelets; E66.01 Morbid (severe) obesity due to excess calories; Z68.43 Body mass index [BMI] 50.0-59.9, adult
CPT/HCPCS: 36415; 71046; 80048; 80053; 83036; 83690; 83735; 83880; 84145; 84484; 85025; 85610; 85730; 93005; 93306; 96372; 96374; 99285; A9270; G0378; G0379; J1650; J1940

== ENCOUNTER 2024-07-25 14:11 | Outpatient (CLI) | payer OTHER, SELFPAY ==
[2024-07-25 15:13] LABS: Anion Gap 7 mmol/L (4-12); Blood Urea Nitrogen 13 mg/dL (7-17); Carbon Dioxide 28 mmol/L (22-30); Chloride 102 mmol/L (98-107); Estimated Glomerular Filt Rate > 60; Glucose 89 mg/dL (65-110); Magnesium 1.8 mg/dL (1.6-2.3); Potassium 3.7 mmol/L (3.4-5.0); Sodium 137 mmol/L (137-145)
== END 2024-07-25 14:12 | disposition home or self-care (01) ==
LOC: ANHLAB 14:14
PROVIDERS: PCP Physician Assistant Medical; Visit Provider Internal Medicine Cardiovascular Disease
DX: I51.9 Heart disease, unspecified (principal)
CPT/HCPCS: 36415; 80048; 83735

== ENCOUNTER 2024-08-16 12:16 | Outpatient (CLI) | payer OTHER, SELFPAY ==
[2024-08-16 12:35] LABS: Basophils Absolute Auto 0.1 K/mm3 (0.0-0.1); Basophils Percent Auto 0.6 % (0.2-1.2); Eosinophils Absolute Auto 0.4 K/mm3 (0-0.3); Eosinophils Percent Auto 2.8 % (0-4.4); Hematocrit 39.7 % (37.0-47.0); Hemoglobin 12.7 g/dL (12.0-15.0); Immature Granulocyte Percent A 0.8 % (0-0.5); Lymphocytes Absolute Auto 2.45 K/mm3 (0.9-3.2); Lymphocytes Percent Auto 19.7 % (18.3-44.2); Mean Corpuscular Hemoglobin 30.5 pg (26-34); Mean Corpuscular Volume 95.2 fl (80-100); Mean Platelet Volume 9.7 fl (7.4-10.4); Monocytes Absolute Auto 0.7 K/mm3 (0.1-0.6); Monocytes Percent Auto 5.5 % (2.6-8.5); Neutrophils Absolute Auto 8.8 K/mm3 (1.3-6.7); Neutrophils Percent Auto 70.6 % (45.5-73.1); Platelet Count Result 396 k/mm3 (150-375); Red Blood Count 4.17 M/mm3 (4.2-5.4); Red Cell Distribution Width 14.8 % (11.5-14.5); White Blood Count 12.5 K/mm3 (4.5-10.0)
[2024-08-16 18:54] LABS: Folic Acid > 20.0 ng/mL (2.76->20)
[2024-08-20 11:38] LABS: Homocysteine 7.4 umol/L (<10.4)
== END 2024-08-16 12:17 | disposition home or self-care (01) ==
LOC: ANHLAB 12:18
PROVIDERS: PCP Physician Assistant Medical; Visit Provider Internal Medicine Hematology & Oncology
DX: D72.829 Elevated white blood cell count, unspecified (principal)
CPT/HCPCS: 36415; 82607; 82746; 83090; 85025

== ENCOUNTER 2025-05-15 13:14 | Outpatient (CLI) | payer OTHER, SELFPAY ==
[2025-05-15 14:06] LABS: Basophils Absolute Auto 0.1 K/mm3 (0.0-0.1); Basophils Percent Auto 0.8 % (0.2-1.2); Eosinophils Absolute Auto 0.5 K/mm3 (0-0.3); Hematocrit 44.8 % (37.0-47.0); Hemoglobin 14.9 g/dL (12.0-15.0); Immature Granulocyte Absolute 0.16 K/mm3 (0.00-0.031); Immature Granulocyte Percent A 1.3 % (0-0.5); Lymphocytes Absolute Auto 2.39 K/mm3 (0.9-3.2); Lymphocytes Percent Auto 19.8 % (18.3-44.2); Mean Corpuscular HGB Conc 33.3 g/dl (32-36); Mean Corpuscular Hemoglobin 31.1 pg (26-34); Mean Corpuscular Volume 93.5 fl (80-100); Mean Platelet Volume 9.6 fl (7.4-10.4); Monocytes Absolute Auto 0.7 K/mm3 (0.1-0.6); Monocytes Percent Auto 5.8 % (2.6-8.5); Neutrophils Absolute Auto 8.3 K/mm3 (1.3-6.7); Neutrophils Percent Auto 68.3 % (45.5-73.1); Platelet Count Result 410 k/mm3 (150-375); Red Blood Count 4.79 M/mm3 (4.2-5.4); Red Cell Distribution Width 14.3 % (11.5-14.5); White Blood Count 12.1 K/mm3 (4.5-10.0)
[2025-05-15 16:33] LABS: Anion Gap 9 mmol/L (4-12); Blood Urea Nitrogen 11 mg/dL (7-17); Calcium 8.9 mg/dL (8.4-10.2); Carbon Dioxide 26 mmol/L (22-30); Chloride 103 mmol/L (98-107); Estimated Glomerular Filt Rate > 60; Glucose 113 mg/dL (65-110); Potassium 4.1 mmol/L (3.4-5.0); Sodium 138 mmol/L (137-145)
[2025-05-15 17:39] LABS: Folic Acid 7.4 ng/mL (2.76->20)
[2025-05-17 11:38] LABS: Homocysteine. 9.6 umol/L (< or = 11.0)
== END 2025-05-15 13:15 | disposition home or self-care (01) ==
LOC: ANHLAB 13:15
PROVIDERS: PCP Physician Assistant Medical; Visit Provider Internal Medicine Hematology & Oncology
DX: D72.829 Elevated white blood cell count, unspecified (principal)
CPT/HCPCS: 36415; 80048; 82607; 82746; 83090; 85025

== ENCOUNTER 2025-06-18 09:27 | Outpatient (CLI) | payer OTHER, SELFPAY ==
--- OUTSIDE RECORDS SUMMARY | 2025-06-18 09:39 | XMS_ITS | Referral Summary ---
Author Organization [facility] Address [address] [place] [address] Care Team Providers Care Seed Sales Manager Name Role Phone Man Paula Primary Care Provider [phone] Allergies No known active allergies Medications atorvastatin (LIPITOR) 20 mg tablet Take 1 tablet (20 mg total) by mouth nightly 30 tablet 11 02/11/2023 Active clopidogreL (PLAVIX) 75 mg tablet Take 1 tablet (75 mg total) by mouth daily 30 tablet 11 02/11/2023 Active nicotine 21-14-7 mg/24 hr patch, TD daily, sequential Apply 21 mg patch daily for 14 days then 14 mg daily for 14 days then 7 mg daily for 14 days then try to quit smoking. Please dispense 14 patch from each dosage 14 patch 3 02/11/2023 Active losartan (COZAAR) 25 mg tablet Take 1.5 tablets (37.5 mg total) by mouth daily 45 tablet 11 06/15/2023 Active carvediloL (COREG) 3.125 mg tablet TAKE 1 TABLET BY MOUTH TWICE A DAY WITH MEALS 180 tablet 02/06/2024 Active aspirin 81 mg enteric coated tablet TAKE 1 TABLET BY MOUTH EVERY DAY 90 tablet 03/07/2024 Active ergocalciferol (VITAMIN D) 50,000 unit capsuleIndicati ons:Vitamin D Deficiency Take 1 capsule (50,000 Units total) by mouth every 30 (thirty) days 12 capsule 09/14/2024 Active ergocalciferol (VITAMIN D) 50,000 unit capsuleIndicati ons:Vitamin D Deficiency Take 1 capsule (50,000 Units total) by mouth once a week 4 capsule 08/15/2024 Active Active Problems Problem Noted Date Diagnosed Date Sleep apnea 01/09/2024 Smoker 01/09/2024 BANSAL (dyspnea on exertion) 02/25/2023 Systolic dysfunction 02/25/2023 Morbid (severe) obesity due to excess calories 0 02/25/2023 Body mass index (BMI) 50.0-59.9, adult 3 STEMI (ST elevation myocardial infarction) 02/09 Type 2 diabetes mellitus without complication Obesity 10/12/2019 Elevated glucose 12/22/2018 Lateral epicondylitis of both elbows 12/22/2018 Social History Tobacco Use Types Packs/Day Years Used Date Smoking Tobacco: Every Day Cigarettes Passive Smoke Exposure: Current Tobacco Cessation:Ready to Q uit: Not Asked; Counseling Given: Not Answered Alcohol Use Standard Drinks/Week Comments Not Currently 0 (1 standard drink = 0.6 oz pur e alcohol) AUDIT-C Answer Date Recorded Q1: How often do you have a drink containing alcohol? Never 08/15/2024 Q2: How many drinks containi ng alcohol do you have on a typical day when you are drinking? Patient does not drink Q3: How often do you have si x or more drinks on one occasion? Never 08/15/2024 Personal Safety Answer Date Recorded Getting School Help Needed Not on file 02/20 Comments Unknown Sex and Gender Information Value Date Recorded Sex Assigned at Not on file Legal Sex Female 6:05 AM CDT Gender Identity Not on file Sexual Orientation Not on file Last Filed Vital Signs Vital Sign Reading Time Taken Comments Blood Pressure 154/93 08/15/2024 10:24 AM CDT Pulse 73 08/15/2024 10:24 AM CDT Temperature 36.7 C (98 F) 02/11/2023 7:00 AM CDT Respiratory Rate 18 02/25/2023 10:0 6 AM CDT Oxygen Saturation 95% 08/15/2024 10: 24 AM CDT Inhaled Oxygen Concentration - - Weight 121.7 kg (268 lb 3.2 oz) 024 10:24 AM CDT Height 149.9 cm (4' 11) 08/15/2024 10: 24 AM CDT Body Mass Index 54.17 08/15/2024 10:24 AM CDT Plan of Treatment Not on file Medical Devices Implanted Type Area Tobacco Cloth Reclaimer Device Identifier Shelf Expiration Date Model / Serial / Lot [employer] Angio-Seal Vip 6fr Closere Device [id number] - [id number] Implanted:Qty: 1 on 02/09/2023 by Keiko Guo MD at [facility] [employer] 08/20/2023 [id number] / / [id number] Procedures Procedure Name Priority Date/Time Associated Diagnosis Comments EGFR Routine 08/15/2024 11:55 AM CDT Morbid obesity (HCC) HEMOGLOBIN A1C Routine 08/15/2024 11:55 AM CDT Morbid obesity (HCC) POCT LIPID PANEL Routine 02/25/2023 10:3 3 AM CDT Lipid screening from Last 3 Months or Most Recently Relevant to Health Maintenance Results * eGFR (08/15/2024 11:55 AM CDT) eGFR >90 >=60 mL/min/1. 73 m2 Comment: Interpretive Data Reference Interval Normal >/= 90 mL/min/1.73m2 Mildly decreased* 60 - 89 mL/min/1.73m2 Mildly to moderately decreased 45 - 59 mL/min/1.73m2 Moderately to severely decreased 30 - 44 mL/min/1.73m2 Severely decreased 15 - 29 mL/min/1.73m2 Kidney Failure < 15 mL/min/1.73m2 *Relative to young adult level Estimated glomerular filtration rate is determined by the 2020 CKD-EPI equation recommended by the National Kidney Foundation (A Unifying Approach to GFR Estimation: Recommendations of the NKF-ASK Task Force on Reassessing the Inclusion of Race in Diagnosing Kidney Disease, JASN 202). The CKD-EPI equation should not be used for patients with unstable renal function and has not been validated in children and those over 70. Current interpretive data was last reviewed 2021. Blood 08/15/2024 11:5 5 AM CDT 08/15/2024 12:36 PM CDT Renetta Lucita Hough NP LAB BLOOD ORDERABLES Final Result Performing Organization Address [facility] de Phone Number [facility] [address] [facility] [place] [address] * (ABNORMAL) Hemoglobin A1c (08/15/2024 11:55 AM CDT) Hgb A1C 5.7(H) 4.0 - 5.6 % Estimated Average Glucose 117 mg/dL YANIRA MELO Comment: The ADA recommends reporting an estimated Average Glucose (eAG) with all Hemoglobin A1c results using the equation derived from a study of 507 normal and diabetic adults. Minority populations were underrepresented and children were not included. (Diabetes Care 31:7747-7403, 2008). The eAG is not equivalent to a fasting glucose. Blood 08/15/2024 11:5 5 AM CDT 08/15/2024 12:36 PM CDT Renetta Lucita Hough NP LAB BLOOD ORDERABLES Final Result Performing Organization Address [facility] de Phone Number [facility] [address] [facility] [place] [address] * POCT lipid panel (02/25/2023 10:33 AM CDT) Cholesterol, POC 164 mg/dL HDL, POC 37 mg/dL Triglycerides, POC 117 mg/dL LDL Cholesterol POC 103 mg/dL Chol/HDL Ratio, POC 4.4 Non-HDL Cholesterol, POC 127 mg/dL Cholesterol Total, POC 164 mg/dL Capillary blood 02/25/2023 1 0:33 AM CDT Keiko Guo MD POINT OF CARE TEST O RDERABLES Edited Result - Final from Last 3 Months or Most Recently Relevant to Health Maintenance Insurance Advance Directives For more information, please contact: [phone] * Full Code (Latest Code Status on File) Date Activated Date Inactivated Comments 02/09/2023 8:25 AM 02/11/2023 3:16 PM Care Teams Seed Sales Manager Relationship Specialty Start Date End Date Man Paula PA [address] [place] [address] PCP - General Physician Insurance Account Manager 04/05/24
--- OUTSIDE RECORDS SUMMARY | 2025-06-18 09:39 | XMS_ITS | Data Portability ---
Author Organization [place] [facility], Main Office Address [address] [place] [address] Care Team Providers Care Technical Manager Name Role Phone CUBA P[employer] Assessment Encounter Date Assessment Date Assessment LastModified by Organization Details LastModified Time 01/10/2024 01/10/2024 Assessment: Nicotine use 01/22 ppd 2001 (quit 2 years in between) = 15 pack years ROBBY/CSA PLMD Hypoventilation Plan: The following were reviewed and explained to the patient: primary care/referral note Nicotine cessation counseling provided for 4 minutes. Sauget for quitting nicotine include getting ready, getting support and encouragement, learning new skills and behaviors and being prepared to handle slips. Tips for dealing with cravings provided. Prevention of subsequent illnesses from nicotine addiction discussed. Comorbidities include but are not limited to hypertension, cerebrovascular disease, coronary heart disease, congestive heart failure, hyperlipidemia, COPD/asthma, peptic ulcer disease, esophagitis/gastri tis, and osteoporosis. Therapy options offered include: Quitting by total abstinence Receiving nicotine replacement therapy Undergoing hypnosis Filling a bupropion or varenicline prescription Enrolling in Quit For Life program Registering at [email or web address] Making a call to 2-759-QDDH-NOW ( ). A strong, clear, personalized message was given to the patient to quit smoking. The patient was urged to set a quit date. We discussed patient's barriers to quitting and I will be of assistance when patient is ready to quit. I encouraged patient to inform friends and family of plans to quit with a request for support. I encouraged the patient to remove all cigarettes from the environment. We reviewed any previous quit attempts and lessons learned from them. I encouraged total abstinence from smoking and advised the patient that drinking alcohol and/or associating with other smokers are associated with failure or relapse. Patient can enroll in [facility]'s smoking cessation class through Lluvia Kelly RN at . Enrollment is free and classes are held every tuesday of the month from 1:30 pm to 2:30 pm at the conference room next to the cafeteria on the ground floor. General information on sleep disordered breathing, evaluation of sleep disordered breathing, treatment with PAP therapy, and living with PAP therapy were covered. Chapter 1 of educational DVD was shown. PSG is medically necessary to determine the degree of and management of sleep apnea. We discussed with the patient the impact of weight on: Sleep disordered breathing CVA Hypertension Hyperlipidemia Prediabetes CAD CARA Phalanx fracture We discussed with the patient the benefit of PAP therapy on: Sleep disordered breathing CVA Depression/Anxiety Rhinitis Hypertension Prediabetes [place] CARA Educated the patient on sleep hygiene measures. Relaxing rituals to rest easy, understanding foods with positive and negative impact on sleep, creating a peaceful sleep environment, timing of exercise, using herbal sleep aids, and practicing sleep-friendly meditation were covered. To determine how much sleep is needed, the patient will assess where she falls on the spectrum, examine what lifestyle factors such as work schedules and stress are affecting the quality and quantity of sleep. In general, adults need 7-9 hours of sleep. Educated the patient regarding foods that promote sleep. These include but are not limited to cherries, bananas, toast, oatmeal, and warm milk. Educated the patient regarding foods and drinks to avoid before bedtime. These include but are not limited to aged cheese, chocolate, spicy foods, tomato-based sauces, soy, ginseng tea and processed meat. Advocated influenza vaccination annually and pneumonia vaccination JOANN. Advocated weight loss through diet and exercise. Patient's ideal body weight according to height and gender is up to 105 lbs. Encouraged patient to adjust caloric intake to maintain/achieve ideal body weight, emphasizing on fruits, vegetables, whole grains, and fat-free or low-fat products. These include lean meats, poultry, fish, beans, eggs, and nuts and foods that are low in saturated fats, trans-fats, cholesterol, salt (sodium), and glycemic index. Stressed the importance of regular exercise up to the patient's capacity limits. In this case, we recommend 20 min daily walking, 2 days a week of resistance training. Patient to monitor BP daily and bring records to PCP for further management. 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 Sauget for quitting nicotine include getting ready, getting support and encouragement, learning new skills and behaviors and being prepared to handle slips. Tips for dealing with cravings provided. Prevention of subsequent illnesses from nicotine addiction discussed. Comorbidities include but are not limited to hypertension, cerebrovascular disease, coronary heart disease, congestive heart failure, hyperlipidemia, COPD/asthma, peptic ulcer disease, esophagitis/gastri tis, and osteoporosis. Therapy options offered include: Quitting by total abstinence Receiving nicotine replacement therapy Undergoing hypnosis Filling a bupropion or varenicline prescription Enrolling in Quit For Life program Registering at [email or web address] Making a call to 7-853-TOAW-NOW ( ). A strong, clear, personalized message was given to the patient to quit smoking. The patient was urged to set a quit date. We discussed patient's barriers to quitting and I will be of assistance when patient is ready to quit. I encouraged patient to inform friends and family of plans to quit with a request for support. I encouraged the patient to remove all cigarettes from the environment. We reviewed any previous quit attempts and lessons learned from them. I encouraged total abstinence from smoking and advised the patient that drinking alcohol and/or associating with other smokers are associated with failure or relapse. Patient can enroll in [facility]'s smoking cessation class through Lluvia Kelly RN at . Enrollment is free and classes are held every tuesday of the month from 1:30 pm to 2:30 pm at the conference room next to the cafeteria on the ground floor. General information on sleep disordered breathing, evaluation of sleep disordered breathing, treatment with PAP therapy, and living with PAP therapy were covered. PSG is medically necessary to determine the management of sleep apnea. We discussed with the patient the impact of weight on: Sleep disordered breathing CVA Hypertension Hyperlipidemia Prediabetes CAD CARA Phalanx fracture We discussed with the patient the benefit of PAP therapy on: Sleep disordered breathing CVA Depression/Anxiety Rhinitis Hypertension Prediabetes [place] CRAA Educated the patient on sleep hygiene measures. Relaxing rituals to rest easy, understanding foods with positive and negative impact on sleep, creating a peaceful sleep environment, timing of exercise, using herbal sleep aids, and practicing sleep-friendly meditation were covered. To determine how much sleep is needed, the patient will assess where she falls on the spectrum, examine what lifestyle factors such as work schedules and stress are affecting the quality and quantity of sleep. In general, adults need 7-9 hours of sleep. Educated the patient regarding foods that promote sleep. These include but are not limited to cherries, bananas, toast, oatmeal, and warm milk. Educated the patient regarding foods and drinks to avoid before bedtime. These include but are not limited to aged cheese, chocolate, spicy foods, tomato-based sauces, soy, ginseng tea and processed meat. Advocated influenza vaccination annually and pneumonia vaccination JOANN. Advocated weight loss through diet and exercise. Patient's ideal body weight according to height and gender is up to 105 lbs. Encouraged patient to adjust caloric intake to maintain/achieve ideal body weight, emphasizing on fruits, vegetables, whole grains, and fat-free or low-fat products. These include lean meats, poultry, fish, beans, eggs, and nuts and foods that are low in saturated fats, trans-fats, cholesterol, salt (sodium), and glycemic index. Stressed the importance of regular exercise up to the patient's capacity limits. In this case, we recommend 20 min daily walking, 2 days a week of resistance training. Patient to monitor BP daily and bring records to PCP for further management. 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 Sauget for quitting nicotine include getting ready, getting support and encouragement, learning new skills and behaviors and being prepared to handle slips. Tips for dealing with cravings provided. Prevention of subsequent illnesses from nicotine addiction discussed. Comorbidities include but are not limited to hypertension, cerebrovascular disease, coronary heart disease, congestive heart failure, hyperlipidemia, COPD/asthma, peptic ulcer disease, esophagitis/gastri tis, and osteoporosis. Therapy options offered include: Quitting by total abstinence Receiving nicotine replacement therapy Undergoing hypnosis Filling a bupropion or varenicline prescription Enrolling in Quit For Life program Registering at [email or web address] Making a call to 8-167-LYON-NOW ( ). A strong, clear, personalized message was given to the patient to quit smoking. The patient was urged to set a quit date. We discussed patient's barriers to quitting and I will be of assistance when patient is ready to quit. I encouraged patient to inform friends and family of plans to quit with a request for support. I encouraged the patient to remove all cigarettes from the environment. We reviewed any previous quit attempts and lessons learned from them. I encouraged total abstinence from smoking and advised the patient that drinking alcohol and/or associating with other smokers are associated with failure or relapse. Patient can enroll in [facility]'s smoking cessation class through Lluvia Kelly RN at . Enrollment is free and classes are held every second Tuesday of the month from 1:30 pm to 2:30 pm at the conference room next to the cafeteria on the ground floor. Educated the patient on problems and solutions associated with positive airway pressure (PAP) use. Difficulty tolerating pressure, mask leaks, intolerance of interface, nasal congestion, claustrophobic response, dry mouth, and unintentional mask removal during sleep were covered. Patient experiences nasal congestion. Patient will use nasal saline spray before starting PAP, use heated PAP humidifier, clean/air dry humidifier reservoir daily, use nasal steroid spray, use ipratropium bromide nasal spray if rhinitis/rhinorrhe a is present or obtain an oronasal/oral interface. Patient experiences claustrophobic response. Patient will practice wearing PAP mask daily while awake and undergo PAP desensitization. We will check fit of patient's mask and provide a sleeker alternative as necessary. Dry mouth is a normal occurrence for people who just start out on PAP therapy because they are not used to air blowing in to the throat to hold open. Dry mouth is exacerbated for people who wear nasal PAP mask and whose jaw drops open during sleep. Not only does this create a much less efficient therapy because of leakage, it also causes dry mouth. There are a couple solutions to help prevent this type of problem. A simple solution would be to wear a chinstrap which essentially holds the jaw in place. A second solution would be a switch to a full face mask which covers both the nose and mouth. Although this is another easy solution, using a full face mask for some could seem claustrophobic or confining. There is no silver bullet solution as no single mask is right for everybody. Sometimes it takes a bit of experimentation to find a PAP mask which best meets the patient's needs as well as fits comfortably. Another tactic is to use a humidifier on your PAP machine. Most new PAP machines have integrated humidifiers. Humidification is agee when dealing with symptoms of dry mouth because the humidifier can supply both warm and room temperate air. Even a small amount of humidity in the airflow will help nasal passages to stay hydrated. If a person is using both a full face mask and a PAP machine with a heated humidifier and is still experiencing dry mouth, an ill-fitted PAP mask might be causing the problem. Leakage can be caused by a mask that is to large or small, the wrong style mask, the cushion is degraded or simply because the mask's straps aren't adjusted correctly. If leakage occurs, dry air from the room can leak in while humidification escapes. The result is reduced humidification within the circuit and resulting in dry throat and mouth. Finally, beyond factors involving the PAP machine and mask, dry mouth can also be caused or worsened by dehydration. The general recommendation to during eight 8 oz. glasses of water a day might be too little for many people. When people drink large amounts of coffee or other caffeine beverages, or sweat a lot during the day, making sure to rehydrate is an important part of PAP therapy. [employer] AirCurve 10 auto set unit with heated humidifier, supplies and Respironics medium DreamWear nasal mask + chin strap @ 20/14 cmH2O ordered. Further titration will be based on clinical response. Provided the patient with a list of local home care stores where positive airway pressure (PAP) units, accouterments, and services are available. Home care store selection is based on patient's insurance carrier. Patient will setup an appointment with [facility] for supplies and pressure adjustments. A major predictor of success with use of PAP is follow-up with both the respiratory supplier and the treating physician. The respiratory supplier optimally will follow-up within two weeks after starting use while the treating physician optimally will follow-up within 90 days after starting therapy to assess adherence and effectiveness of treatment. The download results can show the treating physician information about adherence to treatment, residual AHI while on treatment and presence of large mask leakage. This information is especially helpful if the patient has residual sleepiness despite treatment. General information on sleep disordered breathing, evaluation of sleep disordered breathing, treatment with PAP therapy, and living with PAP therapy were covered. We discussed with the patient the impact of weight on: Sleep disordered breathing CVA Hypertension Hyperlipidemia Prediabetes CAD CARA Phalanx fracture We discussed with the patient the benefit of PAP therapy on: Sleep disordered breathing CVA Depression/Anxiety Rhinitis Hypertension Prediabetes [place] CARA Educated the patient on sleep hygiene measures. Relaxing rituals to rest easy, understanding foods with positive and negative impact on sleep, creating a peaceful sleep environment, timing of exercise, using herbal sleep aids, and practicing sleep-friendly meditation were covered. To determine how much sleep is needed, the patient will assess where she falls on the spectrum, examine what lifestyle factors such as work schedules and stress are affecting the quality and quantity of sleep. In general, adults need 7-9 hours of sleep. Educated the patient regarding foods that promote sleep. These include but are not limited to cherries, bananas, toast, oatmeal, and warm milk. Educated the patient regarding foods and drinks to avoid before bedtime. These include but are not limited to aged cheese, chocolate, spicy foods, tomato-based sauces, soy, ginseng tea and processed meat. Advocated influenza vaccination annually and pneumonia vaccination JOANN. Advocated weight loss through diet and exercise. Patient's ideal body weight according to height and gender is up to 105 lbs. Encouraged patient to adjust caloric intake to maintain/achieve ideal body weight, emphasizing on fruits, vegetables, whole grains, and fat-free or low-fat products. These include lean meats, poultry, fish, beans, eggs, and nuts and foods that are low in saturated fats, trans-fats, cholesterol, salt (sodium), and glycemic index. Stressed the importance of regular exercise up to the patient's capacity limits. In this case, we recommend 20 min daily walking, 2 days a week of resistance training. Patient to monitor BP daily and bring records to PCP for further management. 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 Sauget for quitting nicotine include getting ready, getting support and encouragement, learning new skills and behaviors and being prepared to handle slips. Tips for dealing with cravings provided. Prevention of subsequent illnesses from nicotine addiction discussed. Comorbidities include but are not limited to hypertension, cerebrovascular disease, coronary heart disease, congestive heart failure, hyperlipidemia, COPD/asthma, peptic ulcer disease, esophagitis/gastri tis, and osteoporosis. Therapy options offered include: Quitting by total abstinence Receiving nicotine replacement therapy Undergoing hypnosis Filling a bupropion or varenicline prescription Enrolling in Quit For Life program Registering at [email or web address] Making a call to 9-389-PUBY-NOW ( ). A strong, clear, personalized message was given to the patient to quit smoking. The patient was urged to set a quit date. We discussed patient's barriers to quitting and I will be of assistance when patient is ready to quit. I encouraged patient to inform friends and family of plans to quit with a request for support. I encouraged the patient to remove all cigarettes from the environment. We reviewed any previous quit attempts and lessons learned from them. I encouraged total abstinence from smoking and advised the patient that drinking alcohol and/or associating with other smokers are associated with failure or relapse. Patient can enroll in [facility]'s smoking cessation class through Lluvia Kelly RN at . Enrollment is free and classes are held every second Tuesday of the month from 1:30 pm to 2:30 pm at the conference room next to the cafeteria on the ground floor. PAP compliance downloaded and interpreted x 20 minutes. Data reviewed and explained to the patient. Average apnea/hypopnea index (AHI) is 2.0. Patient used PAP > 4 hours 91% of the time. PAP is set at 20/14 cmH2O. PAP will remain at 20/14 cmH2O. Keep Easy-Breathe off. Keep ramp off. Keep humidifier level at 4 Keep tube temperature at 80 F. Oxygen supplementation: none Patient is benefiting from PAP therapy. Encouraged patient to maintain PAP use more than 70% of the time. Statement of PAP use and benefits will be sent to the home care store. Educated the patient on problems and solutions associated with positive airway pressure (PAP) use. Difficulty tolerating pressure, mask leaks, intolerance of interface, nasal congestion, claustrophobic response, dry mouth, and unintentional mask removal during sleep were covered. Patient experiences nasal congestion. Patient will use nasal saline spray before starting PAP, use heated PAP humidifier, clean/air dry humidifier reservoir daily, use nasal steroid spray, use ipratropium bromide nasal spray if rhinitis/rhinorrhe a is present or obtain an oronasal/oral interface. Patient experiences claustrophobic response. Patient will practice wearing PAP mask daily while awake and undergo PAP desensitization. We will check fit of patient's mask and provide a sleeker alternative as necessary. Dry mouth is a normal occurrence for people who just start out on PAP therapy because they are not used to air blowing in to the throat to hold open. Dry mouth is exacerbated for people who wear nasal PAP mask and whose jaw drops open during sleep. Not only does this create a much less efficient therapy because of leakage, it also causes dry mouth. There are a couple solutions to help prevent this type of problem. A simple solution would be to wear a chinstrap which essentially holds the jaw in place. A second solution would be a switch to a full face mask which covers both the nose and mouth. Although this is another easy solution, using a full face mask for some could seem claustrophobic or confining. There is no silver bullet solution as no single mask is right for everybody. Sometimes it takes a bit of experimentation to find a PAP mask which best meets the patient's needs as well as fits comfortably. Another tactic is to use a humidifier on your PAP machine. Most new PAP machines have integrated humidifiers. Humidification is agee when dealing with symptoms of dry mouth because the humidifier can supply both warm and room temperate air. Even a small amount of humidity in the airflow will help nasal passages to stay hydrated. If a person is using both a full face mask and a PAP machine with a heated humidifier and is still experiencing dry mouth, an ill-fitted PAP mask might be causing the problem. Leakage can be caused by a mask that is to large or small, the wrong style mask, the cushion is degraded or simply because the mask's straps aren't adjusted correctly. If leakage occurs, dry air from the room can leak in while humidification escapes. The result is reduced humidification within the circuit and resulting in dry throat and mouth. Finally, beyond factors involving the PAP machine and mask, dry mouth can also be caused or worsened by dehydration. The general recommendation to during eight 8 oz. glasses of water a day might be too little for many people. When people drink large amounts of coffee or other caffeine beverages, or sweat a lot during the day, making sure to rehydrate is an important part of PAP therapy. Provided the patient with a list of local home care stores where positive airway pressure (PAP) units, accoutrement, and services are available. Home care store selection is based on patient's insurance carrier. Patient will setup an appointment with [facility]IC for supplies and pressure adjustments. A major predictor of success with use of PAP is follow-up with both the respiratory supplier and the treating physician. The respiratory supplier optimally will follow-up within two weeks after starting use while the treating physician optimally will follow-up within 90 days after starting therapy to assess adherence and effectiveness of treatment. The download results can show the treating physician information about adherence to treatment, residual AHI while on treatment and presence of large mask leakage. This information is especially helpful if the patient has residual sleepiness despite treatment. General information on sleep disordered breathing, evaluation of sleep disordered breathing, treatment with PAP therapy, and living with PAP therapy were covered. We discussed with the patient the impact of weight on: Sleep disordered breathing CVA Hypertension Hyperlipidemia Prediabetes CAD CARA Phalanx fracture We discussed with the patient the benefit of PAP therapy on: Sleep disordered breathing CVA Depression/Anxiety Rhinitis Hypertension Prediabetes [place] CARA Educated the patient on sleep hygiene measures. Relaxing rituals to rest easy, understanding foods with positive and negative impact on sleep, creating a peaceful sleep environment, timing of exercise, using herbal sleep aids, and practicing sleep-friendly meditation were covered. To determine how much sleep is needed, the patient will assess where she falls on the spectrum, examine what lifestyle factors such as work schedules and stress are affecting the quality and quantity of sleep. In general, adults need 7-9 hours of sleep. Educated the patient regarding foods that promote sleep. These include but are not limited to cherries, bananas, toast, oatmeal, and warm milk. Educated the patient regarding foods and drinks to avoid before bedtime. These include but are not limited to aged cheese, chocolate, spicy foods, tomato-based sauces, soy, ginseng tea and processed meat. Advocated influenza vaccination annually and pneumonia vaccination JOANN. Advocated weight loss through diet and exercise. Patient's ideal body weight according to height and gender is up to 105 lbs. Encouraged patient to adjust caloric intake to maintain/achieve ideal body weight, emphasizing on fruits, vegetables, whole grains, and fat-free or low-fat products. These include lean meats, poultry, fish, beans, eggs, and nuts and foods that are low in saturated fats, trans-fats, cholesterol, salt (sodium), and glycemic index. Stressed the importance of regular exercise up to the patient's capacity limits. In this case, we recommend 20 min daily walking, 2 days a week of resistance training. Patient to monitor BP daily and bring records to PCP for further management. Follow-up: 1 year, August 2025 [facility] Not available 09/11/2024 11:20:13 Plan of Treatment Reminders Order Date Submit Date Provider Last Modified By Organization Details Last Modified Time Details Appointments Any 15 2024 09:00A Erlinda Killian MD Not available Not available Not available Lab None recorded. Referral None recorded. Procedures None recorded. Surgeries None recorded. Imaging polysomno gram, titration study - approved [id number] 03/15/24-2023 [email or web address] [place] [address], [address] [place] [address], [id number], 03/23/2024 09:03:33 polysomno gram, diagnosti c, 6 yrs or older - approved [id number] 01/11/24-2023 024 [facility], [address] [place] [address], [id number], 03/12/2024 10:35:00 Medication Orders None recorded. Patient TargetsNo targets recorded. Patient InstructionsNo instructions recorded. Reason for Referral None Reported. Results Created Date Observation Date Name Description Value Unit Range Abnormal Flag Note LastModifiedBy Organization Detail LastModifiedTime 03/12/20 24 03/06/2024 polys omnog karime, diagn ostic , 6 yrs or older No observ ation record ed. [facility] [address] [place], [address], 03/12/2024 10:35:00 06/19/20 24 06/13/2024 polys omnog karime, titra tion study No observ ation record ed. [facility] [address] [place], [address], 06/19/2024 11:35:05 Result Notes None recorded. Problems Name Problem SNOMED Code Status Onset Date Resolution Date Notes Provider Name and Address Organization Details Recorded Time Tobacco user 346790978 Active 2019 Not Available [facility] 3 22:06:32 Closed fracture proximal phalanx, toe 818567848 Active 2019 Not Available [facility] 3 22:06:32 Type 2 diabetes mellitus without complication 158086228 Active 2019 Not Available [facility] 3 22:06:32 Smoker 19012853 Active 2023 Kenton Killian MD [address] [facility], [place] [address], [place], [address] , [employer] [facility] 4 15:45:25 Obstructive sleep apnea syndrome 90408875 Active 2023 Kenton Killian MD [address] [facility], [facility] [address], [place], [address] , [facility] [facility] 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 Procedures Surgical History Date Name Laterality Status Provider Name and Address Organization Details Recorded Time delivery completed Maribell Kruse MA [facility] [employer] 01/10/2024 15:10:04 cholecystectomy completed Maribell Kruse MA [facility] 01/10/2024 15:10:18 Ear Tubes completed Maribell Kruse MA [facility] 01/10/2024 15:10:45 Imaging Results None recorded. Procedure Notes None recorded. Medical Equipment None Reported. Allergies No known drug allergies Medications Name Sig Start Date Stop Date Status Note LastModified by Organization Details LastModified Time fluoxetine 40 mg capsule TAKE 1 CAPSULE BY MOUTH EVERY DAY 06/18 completed Not Available Not Available Not Available atorvastati n 40 mg tablet TAKE 1 TABLET BY MOUTH EVERY DAY 09/11 completed Not Available Not Available Not Available atorvastati n 20 mg tablet TAKE 1 TABLET BY MOUTH EVERY DAY FOR 30 DAYS, FOR CHOLESTER OL. active Not Available Not Available No t Available azithromyci n 250 mg tablet TAKE 2 TABLETS BY MOUTH TODAY, THEN TAKE 1 TABLET DAILY FOR 4 DAYS DIRECTED 03/12 completed Not Available Not Available Not Available valacyclovi r 1 gram tablet TAKE 2 TABLETS SOON POSSIBLE AFTER ONSET OF COLD SORES AND REPEAT DOSE ONCE IN 12 HOURS 07/31 completed Not Available Not Available Not Available meloxicam 15 mg tablet TAKE 1 TABLET BY MOUTH EVERY DAY active Not Available Not Available No t Available penicillin V potassium 500 mg tablet TAKE 1 TABLET TWICE A DAY BY MOUTH FOR 10 DAYS, FOR GROUP B STREP THROAT. 06/14 completed Not Available Not Available Not Available topiramate 25 mg tablet TAKE 1 TABLET BY MOUTH TWICE A DAY 07/31 completed Not Available Not Available Not Available clopidogrel 75 mg tablet TAKE 1 TABLET BY MOUTH EVERY DAY active Not Available Not Available No t Available aspirin 81 mg tablet,jimmy yed release TAKE 1 TABLET BY MOUTH EVERY DAY active Not Available Not Available No t Available acetaminoph en 500 mg tablet TAKE 2 TABLETS EVERY 6 HOURS BY ORAL ROUTE FOR 15 DAYS. 06/18 completed Not Available Not Available Not Available carvedilol 3.125 mg tablet TAKE 1 TABLET BY MOUTH TWICE A DAY WITH FOOD active Not Available Not Available No t Available nystatin 100,000 unit/gram topical cream APPLY TO THE AFFECTED AREA(S) BY TOPICAL ROUTE 2 TIMES PER DAY X 2 WEEKS 01/10 completed Not Available Not Available Not Available losartan 25 mg tablet TAKE 1 TABLET BY MOUTH EVERY DAY active Not Available Not Available No t Available sertraline 25 mg tablet TAKE 1 TABLET BY MOUTH EVERY DAY FOR 30 DAYS 01/10 completed Not Available Not Available Not Available folic acid 1 mg tablet TAKE 1 TABLET BY MOUTH EVERY DAY active Not Available Not Available No t Available furosemide 20 mg tablet TAKE 1 TABLET BY MOUTH EVERY DAY active Not Available Not Available No t Available ergocalcife rol (vitamin D2) 1,250 mcg (50,000 unit) capsule TAKE 1 CAPSULE BY MOUTH ONE TIME PER WEEK active Not Available Not Available No t Available albuterol sulfate HFA 90 mcg/actuati on aerosol inhaler INHALE 2 PUFFS BY MOUTH ONCE EVERY 6 HOURS NEEDED FOR SHORTNESS OF BREATH/WH EEZING 07/31 completed Not Available Not Available Not Available phentermine 37.5 mg capsule TAKE 1 CAPSULE BY MOUTH EVERY DAY 07/31 completed Not Available Not Available Not Available amoxicillin 875 mg-potassiu m clavulanate 125 mg tablet TAKE 1 TABLET BY MOUTH TWICE A DAY FOR 10 DAYS 07/31 completed Not Available Not Available Not Available nicotine 21mg/24hr-1 4mg/24hr-7m g/24hr daily transderm patches,seq uentl APPLY 21 MG PATCH DAILY X14 DAYS, 14 MG DAILY X14 DAYS THEN 7 MG DAILY X14 DAYS THEN TRY TO QUIT. 01/10 completed Not Available Not Available Not Available 12 Hour Decongestan t ER 120 mg tablet,exte nded release TAKE 1 TABLET BY MOUTH ONCE EVERY 12 HOURS 07/31 completed Not Available Not Available Not Available fluoxetine 60 mg tablet TAKE 1 TABLET BY MOUTH EVERY DAY FOR 30 DAYS active Not Available Not Available No t Available Jardiance 10 mg tablet TAKE 1 TABLET BY MOUTH EVERY DAY active Not Available Not Available No t Available NovoFine Plus 32 gauge x 1/6 needle USE 1 NEEDLE DAILY DIRECTED 07/31 completed Not Available Not Available Not Available Saxenda 3 mg/0.5 mL (18 mg/3 mL) subcutaneou s pen injector PLEASE SEE ATTACHED FOR DETAILED DIRECTION S 07/31 completed Not Available Not Available Not Available Vitals Date Recorded Heart rate Respiratory rate Provider N stuart and Address Organization Details Last Updated DateTime 01/10/2024 99 /min 15 /min Kenton Killian MD [address], [employer], [place], [address], [facility] [employer] 01/10/2024 15:27:11 Date Recorded Body height Body mass index (BMI) Body weight Body temperature Heart rate Oxygen saturation Oxygen saturation in Arterial blood by Pulse oximetry Systolic And Diastolic Provider Name and Address Organization Details Last Updated DateTime 4 149.86 cm 53.8 kg/m2 708382. 01 g 97.4 [degF] 99 /min 96 % 96 % 120/70 mm[Hg] Maribell Kruse MA [facility] [employer] 4 15:03:29 Date Recorded Heart rate Body temperature Respiratory rate Provider Name and Address Organization Details Last Updated DateTime 03/12/2024 67 /min 97.2 [degF] 14 /min Kenton Killian MD [address], [place], [address], [facility] [employer] 03/12/2024 12:46:12 Date Recorded Body height Body mass index (BMI) Body weight Heart rate Oxygen saturation Oxygen saturation in Arterial blood by Pulse oximetry Systolic And Diastolic Provider Name and Address Organization Details Last Updated DateTime 4 149.86 cm 53.1 kg/m2 089772. 79 g 67 /min 97 % 97 % 120/70 mm[Hg] Wilfredo Bah CMA [facility] [employer] 12:03:56 Date Recorded Heart rate Respiratory rate Provider N stuart and Address Organization Details Last Updated DateTime 06/18/2024 74 /min 15 /min Kenton Killian MD [address], [place], [address], [facility] [employer] 06/18/2024 16:59:42 Date Recorded Body height Body mass index (BMI) Body weight Body temperature Heart rate Oxygen saturation Oxygen saturation in Arterial blood by Pulse oximetry Systolic And Diastolic Provider Name and Address Organization Details Last Updated DateTime 4 149.86 cm 55.1 kg/m2 582374. 72 g 97.5 [degF] 74 /min 95 % 95 % 128/88 mm[Hg] Sweetie Burkett MA [facility] [employer] 16:25:05 Date Recorded Heart rate Respiratory rate Provider N stuart and Address Organization Details Last Updated DateTime 09/11/2024 96 /min 15 /min Kenton Killian MD [address], [place], [address] [employer] 09/11/2024 11:28:16 Date Recorded Body height Body mass index (BMI) Body weight Heart rate Oxygen saturation Oxygen saturation in Arterial blood by Pulse oximetry Body temperature Systolic And Diastolic Provider Name and Address Organization Details Last Updated DateTime 4 149.86 cm 55.1 kg/m2 436147. 72 g 96 /min 98 % 98 % 97.9 [degF] 130/72 mm[Hg] Wilfredo Bah CMA [facility] [employer] 10:52:05 Social History Question Answer Notes LastModified by Organization Details LastModified Time Tobacco Smoking Status Current Every Day Smoker ANNA Lester, [place] - S [place] [employer] [facility] 01/10/2024 15:07:45 What Is Your Level Of Caffeine Consumption? Heavy Information not available 01/10/2024 In The 14 Days Before Symptom Onset, Have You Had Close Contact With A Laboratory-confi rmed COVID-19 While That Case Was Ill? No Information not available 01/10/2024 In The 14 Days Before Symptom Onset, Have You Had Close Contact With A Person Who Is Under Investigation For COVID-19 While That Person Was Ill? No Information not available 01/10/2024 What Type Of Diet Are You Following? CARDIAC Information not available 01/10/2024 Which Illicit Or Recreational Drugs Have You Used? THC Information not available 01/10/2024 Do You Have An Electrostatic Air Filter? No Information not available 01/10/2024 Do You Have A Humidifier? No Information not available 01/10/2024 Where Do You Live? SingleLevelHouse Information not available 01/10/2024 Are You Following A Low Salt Diet? Yes Information not available 01/10/2024 Do You Have Moisture Problems In Your Home? No Information not available 01/10/2024 What Was The Date Of Your Most Recent Tobacco Screening? 01/10/2024 Information not available 01/10/2024 Do You Have Any Pets? Yes Information not available 01/10/2024 Do You Use Your Seat Belt Or Car Seat Routinely? Yes Information not available 01/10/2024 Do You Have Smoke And Carbon Monoxide Detectors In Your Home? Yes Information not available 01/10/2024 At What Age Did You Start Smoking Tobacco? 16 Information not available 01/10/2024 Are You Passively Exposed To Smoke? Yes Information not available 01/10/2024 How Much Tobacco Do You Smoke? 0.5 PPD Information not available 01/10/2024 Do You Use Sunscreen Routinely? No Information not available 01/10/2024 How Many Years Have You Smoked Tobacco? 21 Information not available 01/10/2024 Have You Recently Traveled Abroad? No Information not available 01/10/2024 Do You Have Any Dietary Restrictions? Yes Low Sodium Diet Information not available 01/10/2024 How Many Years Have You Used E-cigarettes Or Vape? 0.5 Information not available 01/10/2024 Sex: Unknown Functional Status Question Answer Note LastModified by Organizat ion Details LastModified Time Do you use any illicit or recreational drugs? Yes Edibles every now and then Information not available 01/10/2024 Do you or have you ever used any other forms of tobacco or nicotine? Yes Information not available 01/10/2024 What is your level of alcohol consumption? None Information not available 01/10/2024 Have you been exposed to chemicals or toxins? Not that aware of Information not available 01/10/2024 Do you or have you ever used e-cigarettes or vape? Current user of electronic cigarettes Information not available 01/10/2024 What is your exercise level? None Information not available 01/10/2024 Mental Status Question Answer Note LastModified by Organization D etails LastModified Time Do you feel stressed (tense, restless, nervous, or anxious, or unable to sleep at night)? [id number] Information not available 01/10/2024 Family History Relationship Description Onset Age of this Age Resolved Age Notes LastModified by Organization Details LastModified Time Father Diabetes mellitus [email or web address] Not available 2023 12:23:40 Father Obstructive sleep apnea syndrome [email or web address] Not available 2023 15:41:07 Mother Malignant neoplasm of bone [email or web address] Not available 2023 12:23:54 Mother Rheumatoid arthritis [email or web address] Not available 2023 15:41:37 Mother Diabetes mellitus [email or web address] Not available 2023 15:42:23 Medical History No medical history recorded. Gynecological HistoryNo gynecological history recorded. Obstetrics History GPAL:G 0 P 0 0 0 0 Past Encounters Encounter ID Performer Location Encounter Start Date Encounter Closed Date Diagnosis/Indication Diagnosis SNOMED-CT Code Diagnosis ICD10 Code Diagnosis Note [id number] Kenton Killian MD [facility] [place] [address] 01/10/2024 14:34:13 01/11/2024 08:49:35 Smoker 52471040 F17.218 F17.219 Z87.891 Sleep apnea 56849813 G47 .30 G47.33 G47.36 G47.31 G47.61 [id number] Kenton Killian MD [facility] [place] [address] 0 03/12/2024 11:36:55 03/13/2024 08:46:37 Sleep apnea 86343080 G47.30 G47.33 G47.36 G47.31 G47.61 Smoker 44903978 F17.218 F17.219 Z87.837 [id number] Kenton Killian MD [facility] [place] [address] 06/18/2024 15:57:21 06/19/2024 15:42:39 Smoker 97833538 F17.218 F17.219 Z87.891 Obstructiv e sleep apnea syndrome 31863683 G47.33 [id number] Kenton Killian MD [facility] [place] [address] 09/11/2024 10:33:51 09/11/2024 15:47:54 Obstructive sleep apnea syndrome 00312384 G47.33 Smoker 27414552 F17.218 F17.219 Z87.891 Health Concerns Section Related Observation LastModified by Organization Detai ls LastModified Time None Recorded Concern Status LastModified by Organization Details LastModified Time None Recorded Advance Directives Directive None Recorded Payers Insurance Date Sequence Insurance Name Policy Number Policy Samson Covered Member ID Samson Member ID Guarantor Name 09/11/2024 1 [facility] (MEDICAID HMO) [id number] Rajani Yen [id number] Rajani Yen 09/11/2024 [employer] CLAIM[employer] Rajani Yen 07/19/2024 2 *SELF PAY* Ly vijay Yen OBGyn Episode No OBEpisode recorded.
--- OUTSIDE RECORDS SUMMARY | 2025-06-18 09:39 | XMS_ITS | Clinical Summary ---
Author Organization [facility] Address [address] [place] [address] Care Team Providers Care Buckler And Lacer Name Role Phone Man Paula Primary Care Provider [phone] Allergies No known active allergies Medications atorvastatin [...] 12/22/2018 Lateral epicondylitis of both elbows 12/22/2018 Medical History Medical History Date Comments Smoker Lateral epicondylitis of both elbows 12/22/2018 Type 2 diabetes mellitus without complication (H CC) 07/31/2020 Social History Tobacco Use Types Packs/Day Years [...] on file Sexual Orientation Not on file Obstetrics History Last Filed Vital Signs Vital Sign Reading [...] 08/15/2024 10:24 AM CDT Plan of Treatment Health Maintenance Due Date Last Done Comments Albumin Creatinine Ratio, Urine 1987 Cervical Cancer Screening 1987 Depression Screening 1987 Hepatitis C Screening 1987 Dilated Eye Exam 1987 Foot Exam 1987 DTaP/Tdap/Td Vaccine (1 - Tdap) 1998 Varicella Vaccines (1 of 2 - 13+ 2-dose series) 2000 Hepatitis B Screening 2005 Regular Well Visit/Exam 18-64 2005 Pneumococcal vaccine <65 (1 of 2 - PCV) 2006 HPV Vaccines (1 - 3-dose SCDM series) 2014 Lipid Panel 02/26/2024 02/25/2023 Hemoglobin A1C 02/12/2025 08/15/2024 Influenza Vaccine (#1) 2025 09/07/2019 eGFR 08/15/2025 08/15/2024, 01/20, 02/09/2023 Medical Devices Implanted Type Area Auto Clocks Repairer Device Identifier Shelf Expiration Date Model / Serial / Lot [employer] Angio-Seal Vip 6fr Closere Device [id number] - [id number] Implanted:Qty: 1 on 02/09/2023 by Keiko Guo MD at [facility] [employer] 08/20/2023 [id number] / / [id number] Procedures Procedure Name Priority Date/Time Associated Diagnosis [...] of Race in Diagnosing Kidney Disease, JASN 2020). The CKD-EPI equation should not be used for patients with unstable renal function and has not been validated in children and those over 70. Current interpretive data was last reviewed 2021. Blood 08/15/2024 11:5 5 AM CDT 08/15/2024 12:36 PM CDT us Renetta Hough NP LAB BLOOD ORDERABLES Final Result [facility] [id number] [facility]. [place] [address] * (ABNORMAL) Hemoglobin A1c (08/15/2024 11:55 AM CDT) Hgb A1C 5.7(H) 4.0 - 5.6 % Estimated Average Glucose 117 mg/dL YANIRA MELO Comment: The ADA recommends reporting an estimated Average Glucose (eAG) with all Hemoglobin A1c results using the equation derived from a study of 507 normal and diabetic adults. Minority populations were underrepresented and children were not included. (Diabetes Care 31:6722-5307, 2008). The eAG is not equivalent to a fasting glucose. Blood 08/15/2024 11:5 5 AM CDT 08/15/2024 12:36 PM CDT us Renetta Hough NP LAB BLOOD ORDERABLES Final Result YANIRA [facility] [id number] [facility]. Department [place] [address] * POCT lipid panel (02/25/2023 10:33 AM CDT) Cholesterol, POC 164 mg/dL HDL, POC 37 mg/dL Triglycerides, POC 117 mg/dL LDL Cholesterol POC 103 mg/dL Chol/HDL Ratio, POC 4.4 Non-HDL Cholesterol, POC 127 mg/dL Cholesterol Total, POC 164 mg/dL Capillary blood 02/25/2023 1 0:33 AM CDT us Keiko Guo MD POINT OF CARE TEST O RDERABLES Edited Result - Final from Last 3 Months or Most Recently Relevant to Health Maintenance Insurance [facility] Advance Directives For more information, please contact: [phone] * Full Code (Latest Code Status on File) Date Activated Date Inactivated Comments 02/09/2023 8:25 AM 02/11/2023 3:16 PM Care Teams Buckler And Lacer Relationship Specialty [place] [address] [place] [address] PCP - General Physician Chief Maintenance Supervisor 04/05/24
--- OUTSIDE RECORDS SUMMARY | 2025-06-18 09:40 | XMS_ITS | Clinical Summary ---
Author Organization [facility] Sada Montesinos Address [address] [place] [address] Care Team Providers Care Disability Representative Name Role Phone Unavailable Primary Care Provider Unavailabl e Allergies No known active allergies Medications aspirin (ECOTRIN EC) 81 mg Tablet, Delayed Release (E.C.) Take 81 mg by mouth daily. Active carvediloL (COREG) 3.125 mg tablet Take 1 Tablet by mouth 2 times daily with meals. 4 Active clopidogreL (PLAVIX) 75 mg Tablet Take 75 mg by mouth daily. 3 Active FLUoxetine (PROzac) 40 mg capsule 4 Active atorvastatin (LIPITOR) 20 mg tablet Take 20 mg by mouth daily at bedtime. 3 Active acetaminophen (TYLENOL) 500 mg tablet Take 500 mg by mouth every 6 hours as needed. Active Jardiance 10 mg tablet Take 1 Tablet by mouth daily. 4 Active ergocalciferol (VITAMIN D2) 50,000 unit capsule Take 50,000 Units by mouth every 7 days. 4 Active losartan (COZAAR) 25 mg tablet Take 25 mg by mouth daily. Active furosemide (LASIX) 20 mg tablet Take 1 Tablet by mouth daily. 4 Active hydrOXYzine HCL (ATARAX) 25 mg tablet Take 1 Tablet by mouth 3 times daily. 5 Active diclofenac sodium (VOLTAREN) 75 mg Tablet, Delayed Release (E.C.) Take 1 Tablet by mouth 2 times daily. 5 Active folic acid (FOLVITE) 1 mg tablet TAKE 1 TABLET BY MOUTH EVERY DAY 90 Tablet 1 5 Active meloxicam (MOBIC) 15 mg tablet Take 1 Tablet by mouth daily. 4 025 Discontinued(Al ternate therapy prescribed) folic acid (FOLVITE) 1 mg tablet Take 1 Tablet (1 mg) by mouth daily. 90 Tablet 1 4 025 Discontinued Active Problems No known active problems Encounters Date Type Department Care Team Description 06/10/2025 Refill [facility] [address] [place] [address] Jose R Queen MD 06/05/2025 External Device Data ST[facility] ABSTRACTION Provider, Abstract 06/04/2025 External Device Data [facility] ABSTRACTION Provider, Abstract 05/22/2025 1:00 PM CDT Office Visit [facility] [address] [place] [address] Jose R Queen MD Leukocytosis, unspecified type (Primary Dx) 05/20/2025 Orders Only [facility] [place] [address] [place] [address] Jose R Queen MD 05/16/2025 Orders Only [facility] - [place] [address] [place] [address] Jose R Queen MD 05/14/2025 External Device Data ST[place] ABSTRACTION Provider, Abstract 05/07/2025 External Device Data [facility] ABSTRACTION Provider, Abstract 04/11/2025 External Device Data [place] ABSTRACTION Provider, Abstract 04/10/2025 External Device Data [facility] ABSTRACTION Provider, Abstract 04/09/2025 External Device Data [facility] ABSTRACTION Provider, Abstract from Last 3 Months Family History Medical History Relation Name Comments Diabetes Father Heart Disease Father Bone Cancer Mother Relation Name Status Comments Brother Alive Father Alive Mother Sister Alive Son 1 Alive Son 2 Alive Social History Tobacco Use Types Packs/Day Years Used Date Smoking Tobacco: Every Day Cigarettes 0.5 21.6 Started: 2003 Smokeless Tobacco: Never Alcohol Use Standard Drinks/Week Comments Never 0 (1 standard drink = 0.6 oz pur e alcohol) Comments Unknown Sex and Gender Information Value Date Recorded Sex Assigned at Not on file Legal Sex Female 1:48 PM [employer]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[employer] Gender Identity Not on file Sexual Orientation Not on file Last Filed Vital Signs Vital Sign Reading Time Taken Comments Blood Pressure 151/90 05/22/2025 1:13 PM CDT Pulse 103 05/22/2025 1:10 PM CDT Temperature 36.2 C (97.2 F) 05/22/2025 1:10 PM CDT Respiratory Rate 16 05/22/2025 1:10 PM CDT Oxygen Saturation 94% 05/22/2025 1:10 PM CDT Inhaled Oxygen Concentration - - Weight 131.8 kg (290 lb 9.6 oz) 05/22/2025 1:10 PM CDT Height 149.9 cm (4' 11) 04/18/2024 2:53 PM CDT Body Mass Index 58.69 04/18/2024 2:53 PM CDT Plan of Treatment Upcoming Encounters Date Type Department Care Team (Late st Contact Info) Description 11/27/2025 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 Office Visit [facility] - [place] [address] [place] [address] [facility] [address] [place] [address] Jose R Queen MD [address] [facility] [address] [place] [address] Health Maintenance Due Date Last Done Comments HPV VACCINES (1 - 3-dose series) 2002 DIABETES ANNUAL FOOT EXAM 2005 DIABETES ANNUAL RETINAL EXAM 2005 DIABETES MICROALBUMIN ANNUAL SCREEN 2005 LDL CHOLESTEROL ANNUAL 2005 DTAP/TDAP/TD VACCINES (1 - Tdap) 2006 HEPATITIS B VACCINES (1 of 3 - 19+ 3-dose series) 07/2006 HPV/Cotest (21-29) 2008 CERVICAL CANCER SCREENING 2017 HPV/Cotest (30-65) 2017 PAP SMEAR 2017 DIABETES HBA1C Q 6 MONTHS 02/12/2025 08/15/2024 INFLUENZA VACCINE (#1) 2025 09/07/2019 Procedures Procedure Name Priority Date/Time Associated Diagnosis Comments CBC WITH DIFFERENTIAL Routine 05/15/2025 4:42 PM CDT BASIC METABOLIC PANEL Routine 05/15/2025 4:35 PM CDT HOMOCYSTEINE Routine 05/15/2025 12:48 PM CDT from Last 3 Months Results * CBC WITH DIFFERENTIAL (05/15/2025 4:42 PM CDT) Blood us Jose R Queen MD HEMATOLOGY ORDERABLES Final Res ult * BASIC METABOLIC PANEL (05/15/2025 4:35 PM CDT) Blood us Jose R Queen MD CHEMISTRY ORDERABLES Final Resu lt * HOMOCYSTEINE (05/15/2025 12:48 PM CDT) Blood us Jose R Queen MD CHEMISTRY ORDERABLES Final Resu lt from Last 3 Months Insurance [employer] [place]
--- NOTE | 2025-06-18 09:55 | ECHO_ITS ---
Patient Info Name: Rajani Yen Age: 40 years : 1985 Gender: Female Ht: 59 in Wt: 283 lbs BSA: 2.41 m2 HR: 74 bpm BP: 158 / 95 mmHg Technical Quality: Fair Exam Date: 06/18/2025 10:03 AM Patient Status: O Admit Date: 06/18/2025 Exam Type: CA echo dop color flow w con Complete two-dimensional, color flow and Doppler transthoracic echocardiogram is performed with contrast to opacify the left ventricle and to improve the deliniation of the left ventricle endocardial borders. Entertainment Dancer: Michell Butterfield Attending Provider: Ayden Perdomo DO Contrast/Agitated Saline Contrast/Ag. Saline: Definity Amount: 2.00 ml Administered By: Michell Butterfield Summary 1. Definity contrast administered improved wall motion interpretation. 2. Left ventricular chamber dimension is mildly enlarged. 3. Left ventricular systolic function is mildly reduced, estimated at 45-50. 4. The left ventricular diastolic function is grade I diastolic dysfunction. 5. E/e' 14 is mildly elevated. Left Ventricle E/e' 14 is mildly elevated. Left ventricular chamber dimension is mildly enlarged. Left ventricular systolic function is mildly reduced, estimated at 45-50. The left ventricular diastolic function is grade I diastolic dysfunction. Definity contrast administered improved wall motion interpretation. Right Ventricle Right ventricular chamber dimension is normal. Right ventricular systolic function is normal and with normal TAPSE 2.0 cm. Left Atria Left atrial chamber dimension is normal. Right Atria Right atrial chamber dimension is normal. Aortic Valve The aortic valve is probable trileaflet. There is no aortic valve stenosis. There is no aortic valve regurgitation. Pulmonic Valve There is no pulmonic regurgitation. Mitral Valve There is no mitral valve stenosis. There is no mitral valve regurgitation. Tricuspid Valve There is no tricuspid valve regurgitation. Pericardium/Pleural There is no pericardial effusion. Inferior Vena Cava Normal inferior vena cava with >50% collapse upon inspiration consistent with normal right atrial pressure, 5 mmHg. Aorta The aortic root size at the sinus of Valsalva is normal. Left Ventricular Outflow Tract Name Value Normal LVOT 2D LVOT Diameter 1.8 cm LVOT Doppler LVOT Peak Velocity 148 cm/s LVOT Peak Gradient 8 mmHg LVOT Mean Gradient 5 mmHg LVOT VTI 30 cm LVOT VTI/AV VTI Ratio 0.8 LVOT Stroke Volume 75 ml LVOT CO 5.4 l/min LVOT CI 2.3 l/min/m2 Pulmonic Valve Name Value Normal RVOT Doppler RVOT Peak Velocity 86 cm/s RVOT Peak Gradient 3 mmHg PV Doppler PV Peak Velocity 116 cm/s PV Peak Gradient 5 mmHg Mitral Valve Name Value Normal MV Diastolic Function MV E Peak Velocity 92 cm/s MV A Peak Velocity 98 cm/s MV E/A 0.9 MV Decel Time (PW) 308 ms MV Annular TDI MV E/e' (Septal) 14.1 MV E/e' (Lateral) 15.0 MV E/e' (Average) 14.5 Tricuspid Valve Name Value Normal Estimated PAP/RSVP RA Pressure 5 mmHg <=5 Aortic Valve Name Value Normal AV Doppler AV Peak Velocity 184 cm/s AV Peak Gradient 14 mmHg AV Mean Gradient 8 mmHg AV VTI 39 cm AV Area (Cont Eq VTI) 1.9 cm2 >=3.0 AV Area (Cont Eq Lefty) 2.0 cm2 AV DI (Lefty) 0.80 AV Regurgitation 2D LVOT Area 2.5 cm2 Ventricles Name Value Normal LV Dimensions 2D/MM LVOT Diameter 1.8 cm LV Fractional Shortening/Ejection Fraction 2D/MM LV Diastolic Volume (4C MOD) 167 ml LV EF (4C MOD) 51 % LV Diastolic Volume (2C MOD) 127 ml LV EF (2C MOD) 40 % LV Diastolic Volume (BP MOD) 157 ml 46-106 LV Diastolic Volume Index (BP MOD) 65 ml/m2 29-61 LV Systolic Volume (BP MOD) 83 ml 14-42 LV Systolic Volume Index (BP MOD) 35 ml/m2 8-24 LV EF (BP MOD) 47 % 54-74 LV Diastolic Length (4C) 10.0 cm LV Systolic Length (4C) 8.8 cm LV Stroke Volume (4C MOD) 85 ml Atria Name Value Normal LA Dimensions LA Volume (4C A-L) 38 ml LA Volume (BP A-L) 43 ml RA Dimensions RA Systolic Major [place] Length (4C) 6.1 cm 2.2-2.8 RA Area (4C) 16.3 cm2 <=18.0 Report Signatures
[2025-06-18] MEDS: PERFLUTREN LIPID MICROSPHERES 1.5 ML VIAL DILUTED TO 10 ML TOTAL VOLUME IV PUSH (10:55)
--- NOTE | 2025-06-18 10:56 | IVDEFINITY ---
Prior to administration of IV Definity the patient was educated on the risks and benefits of the imaging enhancing agent including potential adverse side effects. The patient verbalized understanding. Allergies were verified. No exclusion criteria were identified and at least one of the following inclusion criteria were met: 1) physician request, 2) patient technically difficult to image (per the [place] [employer]chocardi[employer] guidelines of two or more segments not discernable within the apical view), or 3) questionable left ventricular function. ?
== END 2025-06-18 09:28 | disposition home or self-care (01) ==
LOC: ANHCARD 09:30
PROVIDERS: PCP Physician Assistant Medical; Visit Provider Internal Medicine Cardiovascular Disease
DX: R93.1 Abnormal findings on diagnostic imaging of heart and coronary circulation (principal); I51.9 Heart disease, unspecified
CPT/HCPCS: C8929; Q9957

== ENCOUNTER 2025-10-03 12:46 | Inpatient (IN) | payer OTHER, SELFPAY ==
[2025-10-03] VITALS (11 sets, daily range): BP systolic 126–152; BP diastolic 76–95; PULSE 76–98; RESP 12–18; TEMP 36.4–36.9; O2SAT 92–100; BMI 55.9
--- NOTE | ~2025-10-03 | CT_ITS ---
EXAMINATION: CTA chest PE protocol DATE: 10/03/2025 15:31 INDICATION: Rule out PE TECHNIQUE: Computed tomography angiography (CTA) of the chest was performed with 100 mL Omnipaque-350 intravenous contrast timed to evaluate the pulmonary arteries. Coronal maximum intensity projection 3D-reconstructions were created by the technologist. The dose-length product was 995.60 mGy-cm. COMPARISON: None. FINDINGS: No pulmonary emboli. No thoracic aortic aneurysm or dissection. Mild cardiomegaly. No significant pericardial effusion or bulky lymphadenopathy. Borderline right paratracheal pathologic sized lymph node measuring 1.1 cm image 54 series 3. Mild atelectatic changes but the lungs are otherwise clear. Central and large airways are patent. In the visualized upper abdomen, there appears to be at least mild hepatomegaly. Bones appear intact with degenerative changes. IMPRESSION: 1. No pulmonary emboli. 2. Other than minimal atelectatic changes, no gross acute intrathoracic process. 3. Other findings as above. Reviewed, dictated and finalized at location A. CHAR FILTER TANK TENDER IMPRESSION: 1. No pulmonary emboli. 2. Other than minimal atelectatic changes, no gross acute intrathoracic process . 3. Other findings as above.
--- NOTE | ~2025-10-03 | XR_ITS ---
EXAM/PROCEDURE: XR chest 2V HISTORY: Chest pain radiates down left side COMPARISON: 2023 TECHNIQUE: Two view(s) of the chest. FINDINGS: LUNGS: Pulmonary vascular congestion, mild in degree. PLEURAL SPACES: Clear. No evidence of fluid or pneumothorax. HEART/ MEDIASTINUM: There is cardiomegaly. SOFT TISSUES: No significant findings. BONES: No acute osseous abnormality. IMPRESSION: Cardiomegaly and mild pulmonary vascular congestion. Reviewed, dictated and finalized at location A. STICS AND PLANNING MANAGER
--- NOTE | 2025-10-03 12:49 | ECG_ITS ---
Test Date: 2025-10-03 12:52:54 Measurements Intervals [place] Rate: 88 P: 53 VT: 142 QRS: -2 QRSD: 94 T: 123 QT: 330 QTc: 401 Interpretive Statements SINUS RHYTHM POSSIBLE LEFT ATRIAL ENLARGEMENT [-0.1mV P-WAVE IN V1/V2] INFERIOR MYOCARDIAL INFARCTION , PROBABLY OLD [40+ ms Q WAVE AND/OR ST/T ABNORMALITY IN II/aVF] ANTEROLATERAL MYOCARDIAL INFARCTION , OF INDETERMINATE AGE [40+ ms Q WAVE IN I/aVL/V3-V6] Compared to ECG 06/21/2024 22:16:41 No significant changes Electronically Signed On 10-03-2025 13:57:19 [employer] by Iban Wilkerson M.D.
--- NOTE | 2025-10-03 13:00 | ED.CHESTPAIN ---
HPI - Chest Pain General Chief Complaint: Chest Pain <Chely Mackey PA-C - Last Filed: 10/12/25 15:18> Stated Complaint: chest pain <Chely Mackey PA-C - Last Filed: 10/12/25 15:18> Time Seen by Provider: 10/03/25 13:00 <Chely Mackey PA-C - Last Filed: 10/12/25 15:18> Focused HPI: This is a 40-year-old female that presents to the emergency department for exertional chest pain. Ongoing over the last couple of days. Reports some shortness of breath. Reports history of coronary artery disease. GENERAL: Well-appearing, well-nourished, and in no acute distress. HEAD: Normocephalic, atraumatic. CHEST: Clear to auscultation. ?No respiratory distress. HEART: Regular rate and rhythm.? NEURO: ?Alert and oriented x3. Patient screened in triage and initial orders placed.? ?Additional care and disposition to be based upon?diagnostic testing and treatment. <Chely Mackey PA-C - Last Filed: 10/12/25 15:18> History of Present Illness HPI narrative: I agree with the above HPI <Demetrius Winkler MD - Last Filed: 10/13/25 08:00> Related Data Home Medications: Home Medications ?Medication ?Instructions ?Recorded ?Confirmed ?Last Taken ?Type albuterol sulfate 90 mcg/actuation 1 puff inhalation Q4H PRN 06/26/25 10/03/25 10/02/25 20:00 History aerosol inhaler (Ventolin HFA) shortness of breath or wheezing 1 puff fluoxetine 60 mg tablet 60 mg PO DAILY 06/26/25 10/03/25 10/02/25 08:00 History 60 mg folic acid 1 mg tablet 1 mg PO DAILY 06/26/25 10/03/25 10/02/25 08:00 History 1 mg hydroxyzine HCl 25 mg tablet 25 mg PO BID 06/26/25 10/03/25 10/02/25 08:00 History 25 mg ergocalciferol (vitamin D2) 1,250 1,250 mcg PO MONTHLY 10/03/25 10/03/25 09/21/25 08:00 History mcg (50,000 unit) capsule 1,250 mcg <Chely Mackey PA-C - Last Filed: 10/12/25 15:18> Allergies/Adverse Reactions: Allergies Allergy/AdvReac Type Severity Reaction Status Date / Time No Known Allergies Allergy Mild Verified 10/03/25 17:45 <Chely Mackey PA-C - Last Filed: 10/12/25 15:18> Review of Systems Review of Systems: All systems reviewed & are unremarkable except as noted in HPI and below <Chely Mackey PA-C - Last Filed: 10/12/25 15:18> [facility] Past Medical History Medical History: Medical History (Updated 10/12/25 @ 15:18 by Chely Mackey PA-C) Tobacco dependence Hypertension Dyslipidemia Systolic dysfunction Depression Anxiety Myocardial infarction (~01/2024) CVA (cerebral vascular accident) Sleep apnea CAD (coronary artery disease) <Chely Mackey PA-C - Last Filed: 10/12/25 15:18> Surgical History Surgical History: Surgical History History of section History of cholecystectomy History of cardiac catheterization <Chely Mackey PA-C - Last Filed: 10/12/25 15:18> Family History Family History: Family History (Updated 10/03/25 @ 17:53 by Chely Vargas, RN) Father Diabetes mellitus Mother Diabetes mellitus Mother Breast cancer Bone cancer Father Myocardial infarction <Chely Mackey PA-C - Last Filed: 10/12/25 15:18> Social History Social History: Social History Smoking packs per day: 0.5 Smoking cigarettes per day: 10.0 Years smoked: 22 Smoking pack-years: 11.00 Smoking status: Heavy tobacco smoker Tobacco type: cigarettes Second hand tobacco smoke exposure: Yes Alcohol intake: never Substance use: never Substance use type: does not use Other substance usage details: gummies rarely Do You Feel Safe in your Home?: Yes Lack of Transportation: No Lack of Food: Never True Current Housing: I Have Housing Concerned About Future Housing: No Difficulty Paying Gas/Electric Bills: No Difficulty Paying for Meds: No Currently Unemployed: No Education: High School Diploma/GED Difficulty w/ Childcare or Family Care: No Spiritual care concerns: No <Chely Mackey PA-C - Last Filed: 10/12/25 15:18> Exam Narrative: APPEARANCE: Well appearing, no pain, no distress, well-nourished. HEAD: normocephalic, atraumatic. EYES: PERRLA/EOMI, conjunctivae clear. NOSE: Normal no drainage EARS:TMS clear with good light reflex. THROAT: Pharynx clear, no exudate. NECK: Supple. No adenopathy, no masses. RESPIRATORY: Airway patent, respirations nonlabored. Clear to auscultation bilaterally, no rales, rhonchi, wheezing. CARDIOVASCULAR: Regular rate and rhythm without murmurs rubs or gallops. ABDOMINAL: Soft, nontender, nondistended, normal bowel sounds MUSCULOSKELETAL: Moves all extremities. Strength/ROM intact, No edema, No calf tenderness. NEURO: Alert. Cranial nerves II through XII intact. Good gait. Good coordination SKIN: Warm, dry. Normal Color PSYCHIATRIC: Normal affect/mood. <Demetrius Winkler MD - Last Filed: 10/13/25 08:00> Course Vital Signs Vital signs: Vital Signs Temperature 97.5 F L 10/03/25 13:02 Pulse Rate 83 10/03/25 13:02 Respiratory Rate 16 10/03/25 13:02 Blood Pressure 152/92 H 10/03/25 13:02 Pulse Oximetry 98 10/03/25 13:02 Temperature 97.6 F 10/05/25 08:00 Pulse Rate 69 10/05/25 08:00 Respiratory Rate 20 10/05/25 08:00 Blood Pressure 136/90 10/05/25 08:00 Pulse Oximetry 98 10/05/25 08:00 Oxygen Delivery Room Air 10/05/25 05:05 <Chely Mackey PA-C - Last Filed: 10/12/25 15:18> Vital Signs Temperature 97.5 F L 10/03/25 13:02 Pulse Rate 83 10/03/25 13:02 Respiratory Rate 16 10/03/25 13:02 Blood Pressure 152/92 H 10/03/25 13:02 Pulse Oximetry 98 10/03/25 13:02 Temperature 97.6 F 10/05/25 08:00 Pulse Rate 69 10/05/25 08:00 Respiratory Rate 20 10/05/25 08:00 Blood Pressure 136/90 10/05/25 08:00 Pulse Oximetry 98 10/05/25 08:00 Oxygen Delivery Room Air 10/05/25 05:05 <Demetrius Winkler MD - Last Filed: 10/13/25 08:00> MDM - Chest Pain [facility] Narrative Medical decision making narrative: [age] year old female presents emergency department for evaluation for chest pain. Patient states his primary left-sided chest pain started on Tuesday. Patient did contact her primary care physician she was referred to the emergency department. Patient describes the pain as sharp in initially and is now dull does radiate to left shoulder left upper extremity. Initial troponin was elevated does x-ray showed cardiomegaly mild pulmonary edema, CTA showed no evidence of pulmonary embolism. Case discussed with the hospitalist patient was accepted for admission. Cardiology consult was placed prior to admission. Patient was evaluated by Cardiology prior to going to the floor. Patient does have a history of CO but does have a history of a negative catheterization as well. Patient was started on heparin heparin bolus at time of admission. Patient was admitted to the IMU. Critical Care Procedure Note Authorized and Performed by: Demetrius Winkler Total critical care time: Approximately 36 minutes Due to a high probability of clinically significant, life threatening deterioration, the patient required my highest level of preparedness to intervene emergently and I personally spent this critical care time directly and personally managing the patient. This critical care time included obtaining a history; examining the patient; pulse oximetry; ordering and review of studies; arranging urgent treatment with development of a management plan; evaluation of patient's response to treatment; frequent reassessment; and, discussions with other providers. This critical care time was performed to assess and manage the high probability of imminent, life-threatening deterioration that could result in multi-organ failure. It was exclusive of separately billable procedures and treating other patients and teaching time. Please see MDM section and the rest of the note for further information on patient assessment and treatment. <Demetrius Winkler MD - Last Filed: 10/13/25 08:00> Differential Diagnosis Differential diagnosis: Likely fracture of rib, pneumothorax, stable angina, unstable angina pectoris, atypical chest pain, st elevation myocardial infarction, costochondritis, chest pain and biliary colic <Demetrius Winkler MD - Last Filed: 10/13/25 08:00> Lab Data Attestation: I reviewed the patient's lab results. <Demetrius Winkler MD - Last Filed: 10/13/25 08:00> Result diagrams: 10/04/25 03:36 10/04/25 03:36 <Chely Mackey PA-C - Last Filed: 10/12/25 15:18> Labs: Lab Results 10/03/25 10/03/25 10/03/25 Range/Units 12:59 15:03 16:03 WBC 12.5 H (4.5-10.0) K/mm3 RBC 4.40 (4.2-5.4) M/mm3 Hgb 13.7 (12.0-15.0) g/dL Hct 42.5 (37.0-47.0) % MCV 96.6 (80-100) fl MCH 31.1 (26-34) pg MCHC 32.2 (32-36) g/dl RDW 14.7 H (11.5-14.5) % Plt Count 391 H (150-375) k/mm3 MPV 9.6 (7.4-10.4) fl Immature Gran % (Auto) 1.1 H (0-0.5) % Neut % (Auto) 63.5 (45.5-73.1) % Lymph % (Auto) 25.4 (18.3-44.2) % [place] % (Auto) 6.6 (2.6-8.5) % Eos % (Auto) 2.9 (0-4.4) % Baso % (Auto) 0.5 (0.2-1.2) % Lymph # (Auto) 3.17 (0.9-3.2) K/mm3 [place] # (Auto) 0.8 H (0.1-0.6) K/mm3 Eos # (Auto) 0.4 H (0-0.3) K/mm3 Baso # (Auto) 0.1 (0.0-0.1) K/mm3 Abs Immat Gran (auto) 0.14 H (0.00-0.031) K/mm3 Absolute Neuts (auto) 7.9 H (1.3-6.7) K/mm3 Absolute Nucleated RBC 0.000 (0.0-0.012) K/mm3 Nucleated RBC % 0.0 (0.0-0.2) % PT 12.2 (11.1-14.7) Seconds INR 0.9 APTT 29.4 (22.3-36.8) Seconds Sodium 138 (137-145) mmol/L Potassium 3.9 (3.4-5.0) mmol/L Chloride 104 (98-107) mmol/L Carbon Dioxide 29 (22-30) mmol/L Anion Gap 5 (4-12) mmol/L BUN 13 (7-17) mg/dL Creatinine 0.86 (0.7-1.0) mg/dL Estim Creat Clear Calc Not Reportable Estimated GFR > 60 (59 - ) Glucose 113 H (65-110) mg/dL Calcium 8.7 (8.4-10.2) mg/dL Total Bilirubin 0.3 (0.2-1.3) mg/dL AST 35 (14-36) U/L ALT 45 H (6-35) U/L Alkaline Phosphatase 132 H (38-126) U/L Troponin I 2.060 H* 2.200 H* (0.000-0.034) ng/mL Total Protein 7.6 (6.3-8.2) g/dL Albumin 3.8 (3.5-5.1) g/dL Triglycerides (<150) mg/dL Cholesterol (0-200) mg/dL LDL Cholesterol Direct mg/dL HDL Direct mg/dL Lipase 100 (23-300) U/L POC Urine HCG, Qual Negative (Negative) 10/03/25 10/04/25 Range/Units 19:45 03:36 WBC 10.9 H (4.5-10.0) K/mm3 RBC 4.43 (4.2-5.4) M/mm3 Hgb 13.7 (12.0-15.0) g/dL Hct 42.3 (37.0-47.0) % MCV 95.5 (80-100) fl MCH 30.9 (26-34) pg MCHC 32.4 (32-36) g/dl RDW 14.7 H (11.5-14.5) % Plt Count 381 H (150-375) k/mm3 MPV 10.2 (7.4-10.4) fl Immature Gran % (Auto) 1.4 H (0-0.5) % Neut % (Auto) 61.3 (45.5-73.1) % Lymph % (Auto) 26.9 (18.3-44.2) % [place] % (Auto) 6.8 (2.6-8.5) % Eos % (Auto) 2.7 (0-4.4) % Baso % (Auto) 0.9 (0.2-1.2) % Lymph # (Auto) 2.94 (0.9-3.2) K/mm3 [place] # (Auto) 0.7 H (0.1-0.6) K/mm3 Eos # (Auto) 0.3 (0-0.3) K/mm3 Baso # (Auto) 0.1 (0.0-0.1) K/mm3 Abs Immat Gran (auto) 0.15 H (0.00-0.031) K/mm3 Absolute Neuts (auto) 6.7 (1.3-6.7) K/mm3 Absolute Nucleated RBC 0.000 (0.0-0.012) K/mm3 Nucleated RBC % 0.0 (0.0-0.2) % PT (11.1-14.7) Seconds INR APTT 33.3 41.3 H (22.3-36.8) Seconds Sodium 137 (137-145) mmol/L Potassium 3.6 (3.4-5.0) mmol/L Chloride 104 (98-107) mmol/L Carbon Dioxide 28 (22-30) mmol/L Anion Gap 5 (4-12) mmol/L BUN 13 (7-17) mg/dL Creatinine 0.77 (0.7-1.0) mg/dL Estim Creat Clear Calc Not Reportable Estimated GFR > 60 (59 - ) Glucose 102 (65-110) mg/dL Calcium 8.7 (8.4-10.2) mg/dL Total Bilirubin (0.2-1.3) mg/dL AST (14-36) U/L ALT (6-35) U/L Alkaline Phosphatase (38-126) U/L Troponin I 2.190 H* (0.000-0.034) ng/mL Total Protein (6.3-8.2) g/dL Albumin (3.5-5.1) g/dL Triglycerides 229 H (<150) mg/dL Cholesterol 210 H (0-200) mg/dL LDL Cholesterol Direct 124 mg/dL HDL Direct 37 mg/dL Lipase (23-300) U/L POC Urine HCG, Qual (Negative) <Chely Mackey PA-C - Last Filed: 10/12/25 15:18> Lab Results 10/03/25 10/03/25 10/03/25 Range/Units 12:59 15:03 16:03 WBC 12.5 H (4.5-10.0) K/mm3 RBC 4.40 (4.2-5.4) M/mm3 Hgb 13.7 (12.0-15.0) g/dL Hct 42.5 (37.0-47.0) % MCV 96.6 (80-100) fl MCH 31.1 (26-34) pg MCHC 32.2 (32-36) g/dl RDW 14.7 H (11.5-14.5) % Plt Count 391 H (150-375) k/mm3 MPV 9.6 (7.4-10.4) fl Immature Gran % (Auto) 1.1 H (0-0.5) % Neut % (Auto) 63.5 (45.5-73.1) % Lymph % (Auto) 25.4 (18.3-44.2) % [place] % (Auto) 6.6 (2.6-8.5) % Eos % (Auto) 2.9 (0-4.4) % Baso % (Auto) 0.5 (0.2-1.2) % Lymph # (Auto) 3.17 (0.9-3.2) K/mm3 [place] # (Auto) 0.8 H (0.1-0.6) K/mm3 Eos # (Auto) 0.4 H (0-0.3) K/mm3 Baso # (Auto) 0.1 (0.0-0.1) K/mm3 Abs Immat Gran (auto) 0.14 H (0.00-0.031) K/mm3 Absolute Neuts (auto) 7.9 H (1.3-6.7) K/mm3 Absolute Nucleated RBC 0.000 (0.0-0.012) K/mm3 Nucleated RBC % 0.0 (0.0-0.2) % PT 12.2 (11.1-14.7) Seconds INR 0.9 APTT 29.4 (22.3-36.8) Seconds Sodium 138 (137-145) mmol/L Potassium 3.9 (3.4-5.0) mmol/L Chloride 104 (98-107) mmol/L Carbon Dioxide 29 (22-30) mmol/L Anion Gap 5 (4-12) mmol/L BUN 13 (7-17) mg/dL Creatinine 0.86 (0.7-1.0) mg/dL Estim Creat Clear Calc Not Reportable Estimated GFR > 60 (59 - ) Glucose 113 H (65-110) mg/dL Calcium 8.7 (8.4-10.2) mg/dL Total Bilirubin 0.3 (0.2-1.3) mg/dL AST 35 (14-36) U/L ALT 45 H (6-35) U/L Alkaline Phosphatase 132 H (38-126) U/L Troponin I 2.060 H* 2.200 H* (0.000-0.034) ng/mL Total Protein 7.6 (6.3-8.2) g/dL Albumin 3.8 (3.5-5.1) g/dL Triglycerides (<150) mg/dL Cholesterol (0-200) mg/dL LDL Cholesterol Direct mg/dL HDL Direct mg/dL Lipase 100 (23-300) U/L POC Urine HCG, Qual Negative (Negative) 10/03/25 10/04/25 Range/Units 19:45 03:36 WBC 10.9 H (4.5-10.0) K/mm3 RBC 4.43 (4.2-5.4) M/mm3 Hgb 13.7 (12.0-15.0) g/dL Hct 42.3 (37.0-47.0) % MCV 95.5 (80-100) fl MCH 30.9 (26-34) pg MCHC 32.4 (32-36) g/dl RDW 14.7 H (11.5-14.5) % Plt Count 381 H (150-375) k/mm3 MPV 10.2 (7.4-10.4) fl Immature Gran % (Auto) 1.4 H (0-0.5) % Neut % (Auto) 61.3 (45.5-73.1) % Lymph % (Auto) 26.9 (18.3-44.2) % [place] % (Auto) 6.8 (2.6-8.5) % Eos % (Auto) 2.7 (0-4.4) % Baso % (Auto) 0.9 (0.2-1.2) % Lymph # (Auto) 2.94 (0.9-3.2) K/mm3 [place] # (Auto) 0.7 H (0.1-0.6) K/mm3 Eos # (Auto) 0.3 (0-0.3) K/mm3 Baso # (Auto) 0.1 (0.0-0.1) K/mm3 Abs Immat Gran (auto) 0.15 H (0.00-0.031) K/mm3 Absolute Neuts (auto) 6.7 (1.3-6.7) K/mm3 Absolute Nucleated RBC 0.000 (0.0-0.012) K/mm3 Nucleated RBC % 0.0 (0.0-0.2) % PT (11.1-14.7) Seconds INR APTT 33.3 41.3 H (22.3-36.8) Seconds Sodium 137 (137-145) mmol/L Potassium 3.6 (3.4-5.0) mmol/L Chloride 104 (98-107) mmol/L Carbon Dioxide 28 (22-30) mmol/L Anion Gap 5 (4-12) mmol/L BUN 13 (7-17) mg/dL Creatinine 0.77 (0.7-1.0) mg/dL Estim Creat Clear Calc Not Reportable Estimated GFR > 60 (59 - ) Glucose 102 (65-110) mg/dL Calcium 8.7 (8.4-10.2) mg/dL Total Bilirubin (0.2-1.3) mg/dL AST (14-36) U/L ALT (6-35) U/L Alkaline Phosphatase (38-126) U/L Troponin I 2.190 H* (0.000-0.034) ng/mL Total Protein (6.3-8.2) g/dL Albumin (3.5-5.1) g/dL Triglycerides 229 H (<150) mg/dL Cholesterol 210 H (0-200) mg/dL LDL Cholesterol Direct 124 mg/dL HDL Direct 37 mg/dL Lipase (23-300) U/L POC Urine HCG, Qual (Negative) <Demetrius Winkler MD - Last Filed: 10/13/25 08:00> Critical Care Time Critical Care Time Critical Care Time: Yes <Demetrius Winkler MD - Last Filed: 10/13/25 08:00> Total Critical Care Time: 36 <Demetrius Winkler MD - Last Filed: 10/13/25 08:00> Discharge Plan Discharge Clinical Impression: NSTEMI (non-ST elevated myocardial infarction) Chest pain Qualifiers: Chest pain type: unspecified Qualified Code(s): R07.9 - Chest pain, unspecified <Chely Mackey PA-C - Last Filed: 10/12/25 15:18> Patient Disposition: Still a Patient <Chely Mackey PA-C - Last Filed: 10/12/25 15:18> Condition: Stable <Chely Mackey PA-C - Last Filed: 10/12/25 15:18>
[2025-10-03 13:10] LABS: Hematocrit 42.5 % (37.0-47.0); Hemoglobin 13.7 g/dL (12.0-15.0); Immature Granulocyte Percent A 1.1 % (0-0.5); Lymphocytes Absolute Auto 3.17 K/mm3 (0.9-3.2); Mean Corpuscular HGB Conc 32.2 g/dl (32-36); Mean Corpuscular Hemoglobin 31.1 pg (26-34); Mean Corpuscular Volume 96.6 fl (80-100); Nucleated Red Blood Cells Absolute Auto 0.000 K/mm3 (0.0-0.012); Nucleated Red Blood Cells Perc 0.0 % (0.0-0.2); Platelet Count Result 391 k/mm3 (150-375); Red Blood Count 4.40 M/mm3 (4.2-5.4); White Blood Count 12.5 K/mm3 (4.5-10.0)
--- OUTSIDE RECORDS SUMMARY | 2025-10-03 13:18 | XMS_ITS | Encounter Summary ---
Author Organization [facility] Address [facility] [place] [address] Care Team Providers Care Master Fisher Name Role Phone Maury Yen MD Primary Care Provider [phone] Encounter Details Date Type Department Care Team (Late st Contact Info) Description 05/14/2020 [facility] Message Enc [facility] Family Medicine [address] [id number] Maury Yen MD [address] [facility] [place] [address] RE: Other Social History Tobacco Use Types Packs/Day Years Used Date Smoking Tobacco: Every Day Cigarettes Smokeless Tobacco: Never Comments:DISCUSSED QUITTING WITH PT Alcohol Use Standard Drinks/Week Comments No 0 (1 standard drink = 0.6 oz pur e alcohol) Comments No Sex and Gender Information Value Date Recorded Sex Assigned at Not on file Legal Sex Female 10:16 AM CDT Gender Identity Not on file Sexual Orientation Not on file COVID-19 Exposure Response Date Recorded In the last month, have you been in contact with someone who was confirmed or suspected to have Coronavirus / COVID-19? No / Unsure 05/15/2020 1:46 PM CDT documented as of this encounter Plan of Treatment Not on file documented as of this encounter Visit Diagnoses Not on filedocumented in this encounter Care Teams Master Fisher Relationship Specialty Start Date End Date Maury Yen MD PCP - General FAMILY PRACTICE 11/24/18 documented as of this encounter
--- OUTSIDE RECORDS SUMMARY | 2025-10-03 13:18 | XMS_ITS | Clinical Summary ---
Author Organization [facility] Address [address] [place] [address] Care Team Providers Care Baby Doctor Name Role Phone Maury Yen MD Primary Care Provider [phone] Allergies No known active allergies Medications cyclobenzaprine 10 MG tablet Take 10 mg by mouth 3 (three) times daily as needed for Muscle Spasms. Active valACYclovir 1 g tabletIndication s:Cold sore TAKE 2 TABLETS SOON POSSIBLE AFTER ONSET OF COLD SORES AND REPEAT DOSE ONCE IN 12 HOURS 36 tablet 1 0 Active valACYclovir 1 g tablet 0 Active liraglutide, Weight Management, 18 MG/3ML injectionIndicat ions:Obesity, unspecified classification, unspecified obesity type, unspecified whether serious comorbidity present Inject 0.1-0.5 mLs (0.6-3 mg total) into the skin daily. Start With: 0.6 mg (0.1 mL) SC once daily x7 days, then 1.2 mg (0.2 mL) SC once daily x7 days, then 1.8 mg (0.3 mL) SC once daily x 7 days, then 2.4 mg (0.4 mL) SC once daily x 7 days, then 3 mg (0.5 mL) SC once daily. 5 pen 0 Active Insulin Pen Needle (NOVOFINE PLUS) 32G X 4 MM MiscIndications: Obesity, unspecified classification, unspecified obesity type, unspecified whether serious comorbidity present,Elevated glucose 1 each by Does not apply route weekly. 50 each 11 0 Active albuterol sulfate HFA 108 (90 Base) MCG/ACT inhalerIndicatio ns:SOB (shortness of breath) Inhale 2 puffs into the lungs every 6 (six) hours as needed for Wheezing. 18 g 1 0 Active pseudoephedrine ER 120 MG 12 hr tabletIndication s:Chest congestion Take 1 tablet (120 mg total) by mouth every 12 (twelve) hours. 20 tablet 0 Active Misc. Devices (DIGITAL GLASS SCALE) MiscIndications: Obesity, unspecified classification, unspecified obesity type, unspecified whether serious comorbidity present Weigh yourself every morning 1 each 0 Active Active Problems Problem Noted Date Diagnosed Date Obesity, unspecified classif ication, unspecified obesity type, unspecified whether serious comorbidity present 10/12/2019 Encounter for smoking cessation counseling 12/22 Lateral epicondylitis of both elbows 12/22/2018 Elevated glucose 12/22/2018 Resolved Problems Problem Noted Date Diagnosed Date Resolved Date Previous section co mplicating 05/05/2018 12/22/2018 uterine contractions , antepartum, third trimester 03/29/2018 12/22/2018 Immunizations Immunization Administration Dates Next Due Fluzone 6 Months+ Quad (0.5 mL Prefilled Syringe ) 09/07/2019 Influenza Adult (Generic) 09/07/2019 Family History * Patient is adopted Medical History Relation Comments Cancer Mother BIO MOTHER- BONE CANCER Relation Status Comments Mother Social History Tobacco Use Types Packs/Day Years Used Date Smoking Tobacco: Every Day Cigarettes Smokeless Tobacco: Never Tobacco Cessation:Ready to Q uit: No; Counseling Given: No Comments:DISCUSSED QUITTING WITH PT Alcohol Use Standard Drinks/Week Comments No 0 (1 standard drink = 0.6 oz pur e alcohol) Comments No Sex and Gender Information Value Date Recorded Sex Assigned at Not on file Legal Sex Female 10:16 AM CDT Gender Identity Not on file Sexual Orientation Not on file Last Filed Vital Signs Vital Sign Reading Time Taken Comments Blood Pressure 112/64 08/01/2020 8:19 AM CDT Pulse 67 08/01/2020 8:19 AM CDT Temperature 37.1 C (98.7 F) 05/15/2020 2:03 PM CDT Respiratory Rate 15 04/06/2019 11:08 AM CDT Oxygen Saturation 98% 08/01/2020 8:19 AM CDT Inhaled Oxygen Concentration - - Weight 99.8 kg (220 lb) 08/01/2020 8:19 AM CDT Height 149.9 cm (4' 11) 08/01/2020 8:19 AM CDT Body Mass Index 44.43 08/01/2020 8:19 AM CDT Plan of Treatment Health Maintenance Due Date Last Done Comments Annual Physical 1990 Hepatitis C 2005 DTaP, Tdap and Td Vaccines ( 1 - Tdap) 2006 Hepatitis B Vaccines (1 of 3 - 19+ 3-dose series) 2006 Pneumococcal Vaccine: Pediatrics (0 to 5 Years) and At-Risk Patients (6 to 49 Years) (1 of 2 - PCV) 2006 HPV Vaccines (1 - 3-dose SCD M series) 2014 Cervical Cancer Screening Pa p with HPV Testing (Age 30 to 64) Every 5 Years 2017 Cervical Cancer Screening Pa p Smear (Age 30 to 64) Every 3 Years 12/24/2017 12/24/2014 Cervical Cancer Screening wi th HPV 12/24/2017 COVID-19 Vaccine (2024-2 6 season) 2025 Influenza Adult (#1) 2025 09/07/2019, 09/07/2019 Hepatitis A Vaccines Aged Out No long er eligible based on patient's age to complete this topic Meningococcal B Vaccine Aged Out No l onger eligible based on patient's age to complete this topic Meningococcal Vaccine Aged Out No rashi al eligible based on patient's age to complete this topic RSV Immunizations Under 20 Months Aged Out No longer eligible b ased on patient's age to complete this topic Procedures Procedure Name Priority Date/Time Associated Diagnosis Comments THINPREP IMAGING PAP REFLEX HPV MRNA E6/E7 Routine 12/24/2014 12:04 PM CONSUMER CREDIT COUNSELOR from Last 3 Months or Most Recently Relevant to Health Maintenance Results * THINPREP IMAGING PAP REFLEX HPV MRNA E6/E7 (12/24/2014 12:04 PM CONSUMER CREDIT COUNSELOR) CHLAMYDIA TRACHOMATIS RNA TMA NOT DETECTED NOT DETECTED [employer] TO EPIC CONVERSION N.GONORRHOEAE RNA TMA (QST) NOT DETECTED NOT DETECTED [employer] TO EPIC CONVERSION Comment: This test was performed using the APTIMA COMBO2 Assay ([employer] The analytical performance characteristics of this assay, when used to test Sure[facility] specimens have been determined by [employer]. RAY MCCULLOUGH MD REFLEX ADDED no [employer] P TO EPIC CONVERSION Comment: THIS TEST WAS PERFORMED AT [facility] [address], [place] [address] 12/24/2014 12:0 4 PM CONSUMER CREDIT COUNSELOR 12/24/2014 12:04 PM CONSUMER CREDIT COUNSELOR Narrative [employer] TO EPIC CONVERSION - 12/27/2014 9:03 AM CONSUMER CREDIT COUNSELOR This lab was migrated from [facility] and may be missing annotations or result text, please check the Media tab for the most complete results. Janice Rashid CNM PATHOLOGY/CYTOLOGY ORDERA BLES Final Result [employer] TO EPIC CONVERSION from Last 3 Months or Most Recently Relevant to Health Maintenance Insurance Advance Directives * Full Code (Latest Code Status on File) Date Activated Date Inactivated Comments 05/05/2018 11:32 AM 05/07/2018 7:57 PM * Full Code Date Activated Date Inactivated Comments 03/29/2018 5:18 AM 03/29/2018 8:33 AM Care Teams Baby Doctor Relationship Specialty Start Date End Date Maury Yen MD PCP - General FAMILY PRACTICE 11/24/18
--- OUTSIDE RECORDS SUMMARY | 2025-10-03 13:18 | XMS_ITS | Clinical Summary ---
Author Organization [facility] (Formerly [facility])[3] Sada Montesinos Address [address] [place] [address] Care Team Providers Care Cake Inspector Name Role Phone Unavailable Primary Care Provider Unavailabl e Allergies No known active allergies Medications aspirin (ECOTRIN EC) 81 mg Tablet, Delayed Release (E.C.) Take 81 mg by mouth daily. Active carvediloL (COREG) 3.125 mg tablet Take 1 Tablet by mouth 2 times daily with meals. 02/06/2024 Active clopidogreL (PLAVIX) 75 mg Tablet Take 75 mg by mouth daily. 02/11/2023 Active FLUoxetine (PROzac) 40 mg capsule 04/13/2024 Active atorvastatin (LIPITOR) 20 mg tablet Take 20 mg by mouth daily at bedtime. 02/11/2023 Active acetaminophen (TYLENOL) 500 mg tablet Take 500 mg by mouth every 6 hours as needed. Active Jardiance 10 mg tablet Take 1 Tablet by mouth daily. 08/16/2024 Active ergocalciferol (VITAMIN D2) 50,000 unit capsule Take 50,000 Units by mouth every 7 days. 08/15/2024 Active losartan (COZAAR) 25 mg tablet Take 25 mg by mouth daily. Active furosemide (LASIX) 20 mg tablet Take 1 Tablet by mouth daily. 07/25/2024 Active hydrOXYzine HCL (ATARAX) 25 mg tablet Take 1 Tablet by mouth 3 times daily. 05/08/2025 Active diclofenac sodium (VOLTAREN) 75 mg Tablet, Delayed Release (E.C.) Take 1 Tablet by mouth 2 times daily. 05/08/2025 Active folic acid (FOLVITE) 1 mg tablet TAKE 1 TABLET BY MOUTH EVERY DAY 90 Tablet 1 06/10/2025 Active Active Problems No known active problems Encounters Date Type Department Care Team Description 09/10/2025 External Device Data STL ABSTRACTION Provider, Abstract 07/09/2025 External Device Data STL ABSTRACTION Provider, Abstract 07/09/2025 External Device Data [facility] ABSTRACTION Provider, Abstract from Last 3 Months Family History Medical History Relation Name Comments Diabetes Father Heart Disease Father Bone Cancer Mother Relation Name Status Comments Brother Alive Father Alive Mother Sister Alive Son 1 Alive Son 2 Alive Social History Tobacco Use Types Packs/Day Years Used Date Smoking Tobacco: Every Day Cigarettes 0.5 21.9 Started: 2003 Smokeless Tobacco: Never Alcohol Use Standard Drinks/Week Comments Never 0 (1 standard drink = 0.6 oz pur e alcohol) Comments Unknown Sex and Gender Information Value Date Recorded Sex Assigned at Not on file Legal Sex Female 1:48 PM MARINE INSULATOR Gender Identity Not on file Sexual Orientation [...] st Contact Info) Description 11/27/2025 1:00 PM MARINE INSULATOR Office Visit [facility] (Former[facility])[3] Oncology and Hematology - [place] [address] [facility] [address] [place] [address] Jose R Queen MD [address] [facility] [address] [place] [address] Health Maintenance Due Date Last Done Comments DIABETES ANNUAL FOOT EXAM 2005 DIABETES ANNUAL RETINAL EXAM 2005 DIABETES MICROALBUMIN ANNUAL SCREEN 2005 LDL CHOLESTEROL ANNUAL 2005 DTAP/TDAP/TD VACCINES (1 - Tdap) 2006 HEPATITIS B VACCINES (1 of 3 - 19+ 3-dose series) 07/2006 HPV/Cotest (21-29) 2008 HPV VACCINES (1 - 3-dose SCDM series) 2014 CERVICAL CANCER SCREENING 2017 HPV/Cotest (30-65) 2017 PAP SMEAR 2017 DIABETES HBA1C Q 6 MONTHS 02/12/2025 08/15/2024 INFLUENZA VACCINE (#1) 2025 09/07/2019 Insurance [employer] [place]
--- OUTSIDE RECORDS SUMMARY | 2025-10-03 13:18 | XMS_ITS | Encounter Summary ---
Author Organization [facility] Address [facility] [place] [address] Care Team Providers Care Registered Phlebotomist Part Time Name Role Phone None, Provider Primary Care Provider Maury Vela MD Primary Care Provider [phone] Encounter Details Date Type Department Care Team (Late st Contact Info) Description 05/11/2018 Hospital Follow-up Call [facility] [place] [address] Sweetie Kamara RN Social History Tobacco Use Types Packs/Day Years [...] on file Sexual Orientation Not on file documented as of this encounter Plan of Treatment Not on file documented as of this encounter Visit Diagnoses Not on filedocumented in this encounter Additional Health Concerns Infection Onset Date Last Indicated Resolved Time COVID-19 Rule Out 05/08/2020 05/08/2020 05/12/2020 10:05 AM CDT documented as of this encounter Care Teams Registered Phlebotomist Part Time Relationship Specialty Start Date End Date None, Provider, PCP - General 11/21/18 11/23/18 Maury Yen MD PCP - General FAMILY PRACTICE 11/24/18 documented as of this encounter
--- OUTSIDE RECORDS SUMMARY | 2025-10-03 13:18 | XMS_ITS | Clinical Summary ---
Author Organization [facility] Address [address] [place] [address] Care Team Providers Care Office Specialist Name Role Phone Man Paula Primary Care Provider [phone] Allergies No known active allergies Medications atorvastatin [...] 12/22/2018 Type 2 diabetes mellitus without complication 08/2020 Social History Tobacco Use Types Packs/Day Years [...] 01/20, 02/09/2023 Medical Devices Implanted Type Area Steel Shot Header Operator Device Identifier Shelf Expiration Date Model / Serial / Lot [employer] Angio-Seal Vip 6fr Closere Device [id number] - [id number] Implanted:Qty: 1 on 02/09/2023 by Keiko Guo MD at [facility] [employer] 08/20/2023 [id number] / / [id number] Procedures Procedure Name Priority Date/Time Associated Diagnosis [...] AM CDT 08/15/2024 12:36 PM CDT Renetta Hough NP LAB BLOOD ORDERABLES Final Result YANIRA MELO [address] [facility]. Department [place] [address] * (ABNORMAL) Hemoglobin A1c (08/15/2024 11:55 AM CDT) Hgb A1C 5.7(H) 4.0 - 5.6 % Estimated Average Glucose 117 mg/dL YANIRA MELO Comment: The ADA recommends reporting an estimated Average Glucose (eAG) with all Hemoglobin A1c results using the equation derived from a study of 507 normal and diabetic adults. Minority populations were underrepresented and children were not included. (Diabetes Care 31:5546-6142, 2008). The eAG is not equivalent to a fasting glucose. Blood 08/15/2024 11:5 5 AM CDT 08/15/2024 12:36 PM CDT us Renetta Hough NP LAB BLOOD ORDERABLES Final Result YANIRA [facility] [address] [facility]. Department [place] [place] [address] * POCT lipid panel (02/25/2023 10:33 AM [...] Most Recently Relevant to Health Maintenance Insurance Member Subscriber Plan / Payer (Ef fective 2021-Present) Name:Rajani Yen Relation to Subscriber:Self Name:Rajani Yen Payer ID:[id number] (NAIC) Type:MEDICAID RISK OTHER Address: [place] [id number] [facility] Advance Directives For more information, please contact: [phone] * Full Code (Latest Code Status on File) Date Activated Date Inactivated Comments 02/09/2023 8:25 AM 02/11/2023 3:16 PM Care Teams Office Specialist Relationship Specialty Start Date End Date Man Paula PA [address] [place] [address] PCP - General Physician Vice President [employer]idential [employer] 04/05/24
--- OUTSIDE RECORDS SUMMARY | 2025-10-03 13:18 | XMS_ITS | Encounter Summary ---
Author Organization [facility] Address [facility] [place] [address] Care Team Providers Care Furniture Arranger Name Role Phone Maury Yen MD Primary Care Provider [phone] Encounter Details Date Type Department Care Team (Late st Contact Info) Description 08/27/2020 [employer] Message Enc [facility] Family Medicine [address] [address] Maury Yen MD [address] [facility] [place] [address] RE: Other Social History Tobacco [...] have Coronavirus / COVID-19? No / Unsure 08/01/2020 8:17 AM CDT documented as of this encounter Plan of Treatment Not on file documented as of this encounter Visit Diagnoses Not on filedocumented in this encounter Care Teams Furniture Arranger Relationship Specialty Start Date End Date Maury Yen MD PCP - General FAMILY PRACTICE 11/24/18 documented as of this encounter
[2025-10-03 13:21] LABS: INR 0.9; Partial Thromboplastin Time 29.4 Seconds (22.3-36.8); Prothrombin Time 12.2 Seconds (11.1-14.7)
[2025-10-03 13:37] LABS: Alanine Aminotransferase 45 U/L (6-35); Albumin Level 3.8 g/dL (3.5-5.1); Alkaline Phosphatase 132 U/L (38-126); Anion Gap 5 mmol/L (4-12); Aspartate Amino Transferase 35 U/L (14-36); Bilirubin,Total 0.3 mg/dL (0.2-1.3); Blood Urea Nitrogen 13 mg/dL (7-17); Calcium 8.7 mg/dL (8.4-10.2); Carbon Dioxide 29 mmol/L (22-30); Chloride 104 mmol/L (98-107); Estimated Glomerular Filt Rate > 60; Glucose 113 mg/dL (65-110); Lipase 100 U/L (23-300); Potassium 3.9 mmol/L (3.4-5.0); Sodium 138 mmol/L (137-145); Total Protein 7.6 g/dL (6.3-8.2)
[2025-10-03 13:49] LABS: Troponin I 2.060 ng/mL (0.000-0.034)
--- OUTSIDE RECORDS SUMMARY | 2025-10-03 14:30 | XMS_ITS | Encounter Summary ---
Author Organization [facility] Address [facility] [place] [address] Care Team Providers Care Electrical Line Mechanic Name Role Phone None, Provider Primary Care Provider Maury Vela MD Primary Care Provider [phone] Encounter Details Date Type Department Care Team (Late st Contact Info) Description 05/11/2018 Hospital Follow-up Call [facility] [place] [address] Sweetie Kamara RN Social History Tobacco Use [...] documented as of this encounter Care Teams Electrical Line Mechanic Relationship Specialty Start Date End Date None, Provider, PCP - General 11/21/18 11/23/18 Maury Yen MD PCP - General FAMILY PRACTICE 11/24/18 documented as of this encounter
--- OUTSIDE RECORDS SUMMARY | 2025-10-03 14:30 | XMS_ITS | Clinical Summary ---
Author Organization [facility] Address [address] [place] [address] Care Team Providers Care Foreclosure Paralegal Name Role Phone Man Paula Primary Care Provider [phone] Allergies No known active allergies Medications atorvastatin [...] 01/20, 02/09/2023 Medical Devices Implanted Type Area Loading Shovel Oiler Device Identifier Shelf Expiration Date Model / Serial / Lot [employer] Angio-Seal Vip 6fr Closere Device [id number] - [id number] Implanted:Qty: 1 on 02/09/2023 by Keiko Guo MD at [facility] [employer] 08/20/2023 [id number] / / [id number] Procedures Procedure Name Priority Date/Time Associated Diagnosis [...] LAB BLOOD ORDERABLES Final Result YANIRA MELO [address] [facility]. [place] [address] * (ABNORMAL) Hemoglobin A1c (08/15/2024 11:55 AM CDT) Hgb A1C 5.7(H) 4.0 - 5.6 % Estimated Average Glucose 117 mg/dL YANIRA MELO Comment: The ADA recommends reporting an estimated Average Glucose (eAG) with all Hemoglobin A1c results using the equation derived from a study of 507 normal and diabetic adults. Minority populations were underrepresented and children were not included. (Diabetes Care 31:1085-3766, 2008). The eAG is not equivalent to a fasting glucose. Blood 08/15/2024 11:5 5 AM CDT 08/15/2024 12:36 PM CDT us Renetta Hough NP LAB BLOOD ORDERABLES Final Result Y[facility]IRA [facility] [address] [facility]. [place] [address] * POCT lipid panel (02/25/2023 [...] Payer ID:[id number] (NAIC) Type:MEDICAID RISK OTHER Address: [place] [id number] [facility] Advance Directives For more information, please contact: [phone] * Full Code (Latest Code Status on File) Date Activated Date Inactivated Comments 02/09/2023 8:25 AM 02/11/2023 3:16 PM Care Teams Foreclosure Paralegal Relationship Specialty Start Date End Date Man Paula PA [address] [place] [address] PCP - General Physician Is Support Analyst 04/05/24
--- OUTSIDE RECORDS SUMMARY | 2025-10-03 14:30 | XMS_ITS | Clinical Summary ---
Author Organization [facility] Address [address] [place] [address] Care Team Providers Care Production Service Manager Name Role Phone Maury Yen MD Primary Care Provider [phone] Allergies No known active allergies Medications cyclobenzaprine [...] HPV MRNA E6/E7 Routine 12/24/2014 12:04 PM OBSTETRICIAN/GYNECOLOGIST from Last 3 Months or Most Recently Relevant to Health Maintenance Results * [facility] PAP REFLEX HPV MRNA E6/E7 (12/24/2014 12:04 PM OBSTETRICIAN/GYNECOLOGIST) CHLAMYDIA TRACHOMATIS RNA TMA NOT DETECTED NOT DETECTED [facility] TO EPIC CONVERSION N.GONORRHOEAE RNA TMA (QST) NOT DETECTED NOT DETECTED [facility] TO EPIC CONVERSION Comment: This test was performed using the APTIMA COMBO2 Assay ([employer] The analytical performance characteristics of this assay, when used to test SurePath specimens have been determined by [employer]. RAY MCCULLOUGH MD REFLEX ADDED no [facility] P TO EPIC CONVERSION Comment: THIS TEST WAS PERFORMED AT [facility] [address], [place] [address] 12/24/2014 12:0 4 PM OBSTETRICIAN/GYNECOLOGIST 12/24/2014 12:04 PM OBSTETRICIAN/GYNECOLOGIST Narrative [facility] TO EPIC CONVERSION - 12/27/2014 9:03 AM OBSTETRICIAN/GYNECOLOGIST This lab was migrated from [facility] and may be missing annotations or [...] 5:18 AM 03/29/2018 8:33 AM Care Teams Production Service Manager Relationship Specialty Start Date End Date Maury Yen MD PCP - General FAMILY PRACTICE 11/24/18
--- OUTSIDE RECORDS SUMMARY | 2025-10-03 14:30 | XMS_ITS | Encounter Summary ---
Author Organization [facility] Address [facility] [place] [address] Care Team Providers Care Specialty Sales Representative Name Role Phone Maury Yen MD Primary Care Provider [phone] Encounter Details Date Type Department Care Team (Late st Contact Info) Description 08/27/2020 [place] Message Enc [facility] Family Medicine [address] [address] Maury Yen MD [address] [facility] [place] [address] RE: Other Social History Tobacco [...] on filedocumented in this encounter Care Teams Specialty Sales Representative Relationship Specialty Start Date End Date Maury Yen MD PCP - General FAMILY PRACTICE 11/24/18 documented as of this encounter
--- OUTSIDE RECORDS SUMMARY | 2025-10-03 14:30 | XMS_ITS | Encounter Summary ---
Author Organization [facility] Address [facility] [place] [address] Care Team Providers Care Spiral Winding Machine Helper Name Role Phone Maury Yen MD Primary Care Provider [phone] Encounter Details Date Type Department Care Team (Late st Contact Info) Description 05/14/2020 [employer] Message Enc [facility] Family Medicine [address] [address] Maury Yen MD [address] [facility] [place] [address] RE: Other Social History Tobacco [...] on filedocumented in this encounter Care Teams Spiral Winding Machine Helper Relationship Specialty Start Date End Date Maury Yen MD PCP - General FAMILY PRACTICE 11/24/18 documented as of this encounter
--- OUTSIDE RECORDS SUMMARY | 2025-10-03 14:30 | XMS_ITS | Data Portability ---
Author Organization [place] - [facility] [employer], Main Office Address [address] [place] [address] Care Team Providers Care Manager Trainee Name Role Phone CUBA PEDROZA Medical Communication Specialist Assessment Encounter Date Assessment Date Assessment LastModified by Organization Details LastModified Time 01/10/2024 01/10/2024 Assessment: Nicotine use 01/22 ppd 2001 (quit 2 years in between) = 15 pack years ROBBY/CSA PLMD Hypoventilation Plan: The following were reviewed and explained to the patient: primary care/referral note Nicotine cessation counseling provided for 4 minutes. Kennard for quitting nicotine include getting ready, getting [...] in Quit For Life program Registering at [email or web address] Making a call to [phone]-YHMP-NOW ( ). A strong, clear, personalized message [...] failure or relapse. Patient can enroll in [facility]'s smoking cessation class through Lluvia Kelly [...] disordered breathing CVA Depression/Anxiety Rhinitis Hypertension Prediabetes OR CARA Educated the patient on sleep hygiene [...] were reviewed and explained to the patient: [facility] diagnostic sleep study 03/06/24 sleep onset = 12 minutes, REM onset = 124 minutes, AHI = 27, supine AHI = 58, REM AHI = 77, PLMI = 2 Nicotine cessation counseling provided. Kennard for quitting nicotine include getting ready, getting [...] in Quit For Life program Registering at [email or web address] Making a call to [phone]-BQMI-NOW ( ). A strong, clear, personalized message [...] failure or relapse. Patient can enroll in [facility]'s smoking cessation class through Lluvia Kelly [...] disordered breathing CVA Depression/Anxiety Rhinitis Hypertension Prediabetes OR CARA Educated the patient on sleep hygiene [...] were reviewed and explained to the patient: [facility] diagnostic sleep study 03/06/24 sleep onset = 12 minutes, REM onset = 124 minutes, AHI = 27, supine AHI = 58, REM AHI = 77, PLMI = 2 [facility] titration sleep study 06/13/24 sleep onset = 5 minutes, REM onset = 76.5 minutes, Respironics medium DreamWear nasal mask + chin strap @ 20/14 cmH2O, PLMI = 0.0 Nicotine cessation counseling provided. Kennard for quitting nicotine include getting ready, getting [...] in Quit For Life program Registering at [email or web address] Making a call to [phone]-OBTN-NOW ( ). A strong, clear, personalized message [...] failure or relapse. Patient can enroll in [facility]'s smoking cessation class through Lluvia Kelly [...] carrier. Patient will setup an appointment with [facility] for supplies and pressure adjustments. A major [...] disordered breathing CVA Depression/Anxiety Rhinitis Hypertension Prediabetes OR CARA Educated the patient on sleep hygiene [...] were reviewed and explained to the patient: [facility] diagnostic sleep study 03/06/24 sleep onset = 12 minutes, REM onset = 124 minutes, AHI = 27, supine AHI = 58, REM AHI = 77, PLMI = 2 [facility] titration sleep study 06/13/24 sleep onset = 5 minutes, REM onset = 76.5 minutes, Respironics medium DreamWear nasal mask + chin strap @ 20/14 cmH2O, PLMI = 0.0 Nicotine cessation counseling provided. Kennard for quitting nicotine include getting ready, getting [...] in Quit For Life program Registering at [email or web address] Making a call to [phone]-ZPDK-NOW ( ). A strong, clear, personalized message [...] failure or relapse. Patient can enroll in [facility]'s smoking cessation class through Lluvia Kelly [...] carrier. Patient will setup an appointment with [facility] for supplies and pressure adjustments. A major [...] disordered breathing CVA Depression/Anxiety Rhinitis Hypertension Prediabetes OR CARA Educated the patient on sleep hygiene [...] further management. Follow-up: 1 year, August 2025 Not available 09/11/2024 11:20:13 07/31/2025 07/31/2025 Assessment: Rhinitis Nicotine use 01/22 ppd 2001 (quit 2 years in between) = 15.75 pack years Early REM onset Moderate OSAHS, AHI = 27 Plan: The following were reviewed and explained to the patient: [facility] diagnostic sleep study 03/06/24 sleep onset = 12 minutes, REM onset = 124 minutes, AHI = 27, supine AHI = 58, REM AHI = 77, PLMI = 2 [facility] titration sleep study 06/13/24 sleep onset = 5 minutes, REM onset = 76.5 minutes, Respironics medium DreamWear nasal mask + chin strap @ 20/14 cmH2O, PLMI = 0.0 Nicotine cessation counseling provided. Kennard for quitting nicotine include getting ready, getting [...] in Quit For Life program Registering at [email or web address] Making a call to [phone]-AJSZ-NOW ( ). A strong, clear, personalized message [...] failure or relapse. Patient can enroll in [facility]'s smoking cessation class through Lluvia Kelly RN at . Enrollment is free and classes are held every second Tuesday of the month from 1:30 pm to 2:30 pm at the conference room next to the cafeteria on the ground floor. PAP compliance downloaded and interpreted x 20 minutes. Data reviewed and explained to the patient. Average apnea/hypopnea index (AHI) is 1.4. Patient used PAP > 4 hours 89% of the time. PAP is set at [...] carrier. Patient will setup an appointment with [facility] for supplies and pressure adjustments. A major [...] disordered breathing CVA Depression/Anxiety Rhinitis Hypertension Prediabetes OR CARA Educated the patient on sleep hygiene [...] PCP for further management. Follow-up: 1 year, July 2026 Not available 07/31/2025 12:10:02 Plan of Treatment Reminders Order Date Submit Date Provider Last Modified By Organization Details Last Modified Time Details Appointments Any 30 2025 10:30A Erlinda Killian MD Not available Not available Not available Lab None recorded. Referral None recorded. Procedures None recorded. Surgeries None recorded. Imaging polysomno gram, titration study - approved [id number] 03/15/24-2023 024 [email or web address] 5 [facility] [place], [address] [place], [address], 03/23/2024 09:03:33 polysomno gram, diagnosti c, 6 yrs or older - approved [id number] 01/11/24-20232 024 [facility] [place], [address] [place], [address], 03/12/2024 10:35:00 Medication Orders None recorded. Patient TargetsNo targets recorded. Patient InstructionsNo instructions recorded. Reason for Referral None Reported. Results Created Date Observation Date Name Description Value Unit Range Abnormal Flag Note LastModifiedBy Organization Detail LastModifiedTime 03/12/20 24 03/06/2024 polys omnog karime, diagn ostic , 6 yrs or older No observ ation record ed. [facility] [address] [place], [address], 03/12/2024 10:35:00 06/19/20 24 06/13/2024 polys omnog karime, titra tion study No observ ation record ed. [facility] [address] [place], [address], 06/19/2024 11:35:05 Result Notes None recorded. Problems Name Problem SNOMED Code Status Onset Date Resolution Date Notes Provider Name and Address Organization Details Recorded Time Tobacco user 102932901 Active 2019 Not Available [facility] 3 22:06:32 Closed fracture proximal phalanx, toe 036455759 Active 2019 Not Available [facility] 3 22:06:32 Type 2 diabetes mellitus without complication 121074696 Active 2019 Not Available [facility] 3 22:06:32 Smoker 43570092 Active 2023 Kenton Killian MD [address] [address], [place], [address] , [facility] 4 15:45:25 Obstructive sleep apnea syndrome 00816629 Active 2023 Kenton Killian MD [address], [place], [address] , [facility] 4 16:40:24 Notes:Medical History: Left CVA without [...] Cholecystectomy 2006 Cardiac catheterization 2022 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 Procedures Surgical History Date Name Laterality Status Provider Name and Address Organization Details Recorded Time delivery completed Maribell Kruse MA [facility] [employer] 01/10/2024 15:10:04 cholecystectomy completed Maribell Kruse MA [facility] [employer] [facility] 01/10/2024 15:10:18 Ear Tubes completed Maribell Kruse MA [facility] [employer] [facility] 01/10/2024 15:10:45 Imaging Results None recorded. Procedure Notes None recorded. Medical Equipment None Reported. Allergies No known drug allergies Medications Name Sig Start Date Stop Date Status Note LastModified by Organization Details LastModified Time fluoxetine 40 mg capsule TAKE 1 CAPSULE BY MOUTH EVERY DAY 06/18 completed Not Available Not Available Not Available cyclobenzap rine 10 mg tablet TAKE 1 TABLET BY MOUTH TWICE DAILY FOR LEFT SHOULDER PAIN FOR 30 DAYS active Not Available Not Available No t Available atorvastati n 40 mg tablet TAKE 1 TABLET BY MOUTH EVERY DAY active Not Available Not Available No t Available promethazin e-DM 6.25 mg-15 mg/5 mL oral syrup TAKE 5 MILLILITE RS BY MOUTH EVERY 4 HOURS FOR 10 DAYS 07/31 completed Not Available Not Available Not Available atorvastati n 20 mg tablet TAKE 1 TABLET BY MOUTH EVERY DAY FOR 30 DAYS, FOR CHOLESTER OL. 07/31 completed Not Available Not Available Not Available azithromyci n 250 mg tablet TAKE [...] TAKE 1 TABLET BY MOUTH EVERY DAY 07/31 completed Not Available Not Available Not Available penicillin V potassium 500 mg tablet TAKE 1 TABLET TWICE A DAY BY MOUTH FOR 10 DAYS, FOR GROUP B STREP THROAT. 06/14 completed Not Available Not Available Not Available topiramate 25 mg tablet TAKE 1 TABLET BY MOUTH TWICE A DAY 07/31 completed Not Available Not Available Not Available clopidogrel 75 mg tablet TAKE 1 TABLET BY MOUTH DAILY active Not Available Not Available No t Available aspirin 81 mg tablet,jimmy yed release TAKE 1 TABLET BY MOUTH EVERY DAY active Not Available Not Available No t Available acetaminoph en 500 mg tablet TAKE 2 TABLETS EVERY 6 HOURS BY ORAL ROUTE FOR 15 DAYS. 06/18 completed Not Available Not Available Not Available amoxicillin 500 mg tablet TAKE 1 TABLET BY MOUTH THREE TIMES A DAY UNTIL FINISHED *PRESCRIB ER NOT ENROLLED* 07/31 completed Not Available Not Available Not Available carvedilol 3.125 mg tablet TAKE 1 TABLET BY MOUTH TWICE A DAY active Not Available Not Available No t Available oseltamivir 75 mg capsule TAKE 1 CAPSULE BY MOUTH TWICE A DAY FOR 5 DAYS 07/31 completed Not Available Not Available Not Available nystatin 100,000 unit/gram topical cream APPLY TO THE AFFECTED AREA(S) BY TOPICAL ROUTE 2 TIMES PER DAY X 2 WEEKS 01/10 completed Not Available Not Available Not Available losartan 25 mg tablet TAKE 1 TABLET BY MOUTH EVERY DAY active Not Available Not Available No t Available Ear Drops (carbamide peroxide) 6.5 % INSTILL 5 DROPS INTO AFFECTED EAR TWICE A DAY 07/31 completed Not Available Not Available Not Available sertraline 25 mg tablet TAKE 1 TABLET BY MOUTH EVERY DAY FOR 30 DAYS 01/10 completed Not Available Not Available Not Available diclofenac sodium 75 mg tablet,jimmy yed release TAKE 1 TABLET BY MOUTH TWICE A DAY 07/31 completed Not Available Not Available Not Available folic acid 1 mg tablet TAKE 1 TABLET BY MOUTH EVERY DAY active Not Available Not Available No t Available hydroxyzine HCl 25 mg tablet TAKE 1 TABLET BY MOUTH THREE TIMES A DAY FOR 30 DAYS active Not Available Not Available No t Available furosemide 20 mg tablet TAKE 1 TABLET BY MOUTH EVERY DAY active Not Available Not Available No t Available ergocalcife rol (vitamin D2) 1,250 mcg (50,000 unit) capsule TAKE 1 CAPSULE BY MOUTH EVERY 30 DAYS active Not Available Not Available No t Available albuterol sulfate HFA 90 mcg/actuati on aerosol inhaler INHALE 2 PUFFS INTO THE LUNGS EVERY 4 HOURS FOR 30 DAYS active Not Available Not Available No t Available phentermine 37.5 mg capsule TAKE 1 [...] completed Not Available Not Available Not Available ciprofloxac in 0.3 %-dexametha sone 0.1 % ear drops,suspe nsion INSTILL 4 DROPS INTO AFFECTED EAR(S) TWICE A DAY FOR 7 DAYS 07/31 completed Not Available Not Available [...] /min 15 /min Kenton Killian MD [address] [facility], [facility] [address], [place], [address], [place] [facility] 01/10/2024 15:27:11 Date Recorded Body height Body mass index (BMI) Body weight Body temperature Heart rate Oxygen saturation Oxygen saturation in Arterial blood by Pulse oximetry Systolic And Diastolic Provider Name and Address Organization Details Last Updated DateTime 149.86 cm 53.8 kg/m2 964115. 01 g 97.4 [degF] 99 /min 96 % 96 % 120/70 mm[Hg] Maribell Kruse MA [facility] [employer] 4 15:03:29 Date Recorded Heart rate Body temperature Respiratory rate Provider Name and Address Organization Details Last Updated DateTime 03/12/2024 67 /min 97.2 [degF] 14 /min Kenton Killian MD [address], [place], [address], [facility] [employer] 03/12/2024 12:46:12 Date Recorded Body height Body mass index (BMI) Body weight Heart rate Oxygen saturation Oxygen saturation in Arterial blood by Pulse oximetry Systolic And Diastolic Provider Name and Address Organization Details Last Updated DateTime 4 149.86 cm 53.1 kg/m2 326885. 79 g 67 /min 97 % 97 % 120/70 mm[Hg] Wilfredo Bah CMA [facility] [employer] 12:03:56 Date Recorded Heart rate Respiratory rate Provider N stuart and Address Organization Details Last Updated DateTime 06/18/2024 74 /min 15 /min Kenton iKllian MD [address], [address], [place], [address], [facility] [employer] 06/18/2024 16:59:42 Date Recorded Body height Body mass index (BMI) Body weight Body temperature Heart rate Oxygen saturation Oxygen saturation in Arterial blood by Pulse oximetry Systolic And Diastolic Provider Name and Address Organization Details Last Updated DateTime 4 149.86 cm 55.1 kg/m2 182044. 72 g 97.5 [degF] 74 /min 95 % 95 % 128/88 mm[Hg] Sweetie Burkett MA [facility] [employer] 16:25:05 Date Recorded Heart rate Respiratory rate Provider N stuart and Address Organization Details Last Updated DateTime 07/31/2025 76 /min 15 /min Kenton Killian MD [address], [place], [address], [facility] [employer] 07/31/2025 11:59:49 Date Recorded Body height Body mass index (BMI) Body weight Body temperature Heart rate Oxygen saturation Oxygen saturation in Arterial blood by Pulse oximetry Systolic And Diastolic Provider Name and Address Organization Details Last Updated DateTime 5 149.86 cm 57.2 kg/m2 136968. 64 g 98.1 [degF] 76 /min 97 % 97 % 128/74 mm[Hg] Sweetie Burkett MA [place] [facility] [employer] 5 11:53:08 Date Recorded Heart rate Respiratory rate Provider N stuart and Address Organization Details Last Updated DateTime 09/11/2024 96 /min 15 /min Kenton Killian MD [address] [facility], [facility] [address], [place], [address], [facility] [employer] 09/11/2024 11:28:16 Date Recorded Body height Body mass index (BMI) Body weight Heart rate Oxygen saturation Oxygen saturation in Arterial blood by Pulse oximetry Body temperature Systolic And Diastolic Provider Name and Address Organization Details Last Updated DateTime 4 149.86 cm 55.1 kg/m2 371751. 72 g 96 /min 98 % 98 % 97.9 [degF] 130/72 mm[Hg] Wilfredo Bah CMA [place] [facility] [employer] 4 10:52:05 Social History Question Answer Notes LastModified by Organization Details LastModified Time Tobacco Smoking Status Current Every Day Smoker ANNA [place], [place] [facility] [employer] 01/10/2024 15:07:45 What Is Your Level Of [...] Date Of Your Most Recent Tobacco Screening? 07/31/2025 [email or web address] Information not available 07/31/2025 Do You Have Any Pets? Yes Information [...] anxious, or unable to sleep at night)? [id number] Information not available 01/10/2024 Family History Relationship Description Onset Age of this Age Resolved Age Notes LastModified by Organization Details LastModified Time Father Diabetes mellitus [email or web address] Not available 2023 12:23:40 Father Obstructive sleep apnea syndrome [email or web address] Not available 2023 15:41:07 Mother Malignant neoplasm of bone [facility] Not available 2023 12:23:54 Mother Rheumatoid arthritis [facility] Not available 2023 15:41:37 Mother Diabetes mellitus [facility] Not available 2023 15:42:23 Medical History No medical history recorded. Gynecological HistoryNo gynecological history recorded. Obstetrics History GPAL:G 0 P 0 0 0 0 Past Encounters Encounter ID Performer Location Encounter Start Date Encounter Closed Date Diagnosis/Indication Diagnosis SNOMED-CT Code Diagnosis ICD10 Code Diagnosis IMO Codes Diagnosis Note [id number] [facility] [address] [facility] 01/10/2024 14:34:13 01/11/2024 08:49:35 Smoker 98843922 F17.218 F17.219 Z87.891 Sleep apnea 13621298 G47 .30 G47.33 G47.36 G47.31 G47.61 [id number] [place] [id number] 03/12/2024 11:36:55 03/13/2024 08:46:37 Sleep apnea 52153258 G47.30 G47.33 G47.36 G47.31 G47.61 Smoker 31173633 F17.218 F17.219 Z87.300 [id number] MD AME [place]avanaugh[place] [address] [place] [id number] 06/18/2024 15:57:21 06/19/2024 15:42:39 Smoker 55645785 F17.218 F17.219 Z87.891 Obstructiv e sleep apnea syndrome 78015537 G47.33 [id number] MD SKYLER [facility] [id number] 09/11/2024 10:33:51 09/11/2024 15:47:54 Obstructive sleep apnea syndrome 89247878 G47.33 Smoker 31253694 F17.218 F17.219 Z87.680 [id number] MD SKYLER [facility] [address] [id number] 07/31/2025 11:23:21 08/02/2025 14:53:03 Obstructive sleep apnea syndrome 85995758 G47.33 Smoker 83466710 F17.218 F17.219 Z87.891 Health Concerns Section Related Observation LastModified by Organization Detai ls LastModified Time None Recorded Concern Status LastModified by Organization Details LastModified Time None Recorded Advance Directives Directive None Recorded Payers Insurance Date Sequence Insurance Name Policy Number Policy Samson Covered Member ID Samson Member ID Guarantor Name 07/31/2025 1 [facility] (MEDICAID HMO) [id number] Rajani Yen [id number] Rajani Yen 07/31/2025 [employer] Rajani Yen 07/19/2024 2 *SELF PAY* Ly vijay Yen Notes Date Note Type Note Provider Name and Address Organization Details Recorded Time 01/10/2024 text/html Primary care/Referring provider: Man Paula PA-C At home, the patient sleeps from 10 pm to 6 am and wakes up by . Snoring: heavy, since .Snorting: yesChoking: noCoughing: yesGasping: yesGagging: noSighing: yesWitnessed apnea: yesTwitching or jerking of leg(s), arm(s), body, head: yesTeeth grinding: noTeeth clenching: noSleeptalking: yesSleepwalking: noSleep crying: noBedwetting: noTongue/lip/gum/cheek biting: noSleeping with open mouth: yesSleep paralysis: noHypnagogic hallucinations: noHypnopompic hallucinations: noVivid dreams: yes, yellingDifficulty with sleep onset: yesDifficulty with sleep maintenance: yesSleep interruptions: nocturia x 3Patient wakes up with: fatigue, xerostomia, sore throat, hoarse voice, headaches, jaw pain, disorientation, cognitive impairment, mobility impairment, dexterity impairmentDaytime cataplexy: noMorning hypersomnolence: yesAfternoon hypersomnolence: yesCaffeine sources in diet: soda 6 cans per day, chocolate 1 candy bar per month Associated medical and psychiatric conditions:Congestive heart failure: noCoronary artery disease: yesMyocardial infarction: yesHypertension: yesStroke: yesBronchial asthma: noChronic obstructive pulmonary disease: noDepression: yesBipolar disorder: noAnxiety: yesPanic disorder: noPosttraumatic stress disorder: noAttention deficit and hyperactivity disorder: noObsessive Compulsive disorder: noSchizophrenia: noSchizoaffective disorder: noPersonality disorder: noChronic analgesic use: noChronic sedative/hypnotic use: no EPWORTH SLEEPINESS SCALE (ESS) CHANCE OF DOZING SCORE0 = would never doze1 = slight chance of dozing2 = moderate chance of dozing3 = high chance of dozing SITUATION AND CHANCE OF DOZINGSitting and reading - 3Watching television - 1Sitting inactive in a public place (e.g. a theater or meeting) - 2As a passenger in a car for an hour without a break - 1Lying down to rest in the afternoon when circumstances permit - 3Sitting and talking to someone - 2Sitting quietly after lunch without alcohol - 3In a car, while stopped for a few minutes in the traffic - 2TOTAL SCORE 17Subjectively, patient has a high chance of dozing. Kenton Killian MD [address] [place] [address], [address] [address], [place], [address], [facility] 01/10/2024 15:57:48 03/12/2024 text/html Primary care/Referring provider: Man Paula PA-C During the [facility] diagnostic sleep study on 03/06/24, sleep onset = 12 minutes, REM onset = 124 minutes, AHI = 27, supine AHI = 58, REM AHI = 77, PLMI = 2. At home, the patient sleeps from 10 pm to 6 am and wakes up by . Snoring: heavy, since .Snorting: yesChoking: noCoughing: yesGasping: yesGagging: noSighing: yesWitnessed apnea: yesTwitching or jerking of leg(s), arm(s), body, head: yesTeeth grinding: noTeeth clenching: noSleeptalking: yesSleepwalking: noSleep crying: noBedwetting: noTongue/lip/gum/cheek biting: noSleeping with open mouth: yesSleep paralysis: noHypnagogic hallucinations: noHypnopompic hallucinations: noVivid dreams: yes, yellingDifficulty with sleep onset: yesDifficulty with sleep maintenance: yesSleep interruptions: nocturia x 3Patient wakes up with: fatigue, xerostomia, sore throat, hoarse voice, headaches, jaw pain, disorientation, cognitive impairment, mobility impairment, dexterity impairmentDaytime cataplexy: noMorning hypersomnolence: yesAfternoon hypersomnolence: yesCaffeine sources in diet: soda 6 cans per day, chocolate 1 candy bar per month Associated medical and psychiatric conditions:Congestive heart failure: noCoronary artery disease: yesMyocardial infarction: yesHypertension: yesStroke: yesBronchial asthma: noChronic obstructive pulmonary disease: noDepression: yesBipolar disorder: noAnxiety: yesPanic disorder: noPosttraumatic stress disorder: noAttention deficit and hyperactivity disorder: noObsessive Compulsive disorder: noSchizophrenia: noSchizoaffective disorder: noPersonality disorder: noChronic analgesic use: noChronic sedative/hypnotic use: no EPWORTH SLEEPINESS SCALE (ESS) CHANCE OF DOZING SCORE0 = would never doze1 = slight chance of dozing2 = moderate chance of dozing3 = high chance of dozing SITUATION AND CHANCE OF DOZINGSitting and reading - 3Watching television - 3Sitting inactive in a public place (e.g. a theater or meeting) - 2As a passenger in a car for an hour without a break - 2Lying down to rest in the afternoon when circumstances permit - 3Sitting and talking to someone - 3Sitting quietly after lunch without alcohol - 3In a car, while stopped for a few minutes in the traffic - 3TOTAL SCORE 22Subjectively, patient has a high chance of dozing. Kenton Killian MD [address] [place] [address], [facility] [address], [place], [address], [facility] [employer] 03/12/2024 12:46:19 06/18/2024 text/html Primary care/Referring provider: Man Paula PA-C During the [facility] diagnostic sleep study on 03/06/24, sleep onset = 12 minutes, REM onset = 124 minutes, AHI = 27, supine AHI = 58, REM AHI = 77, PLMI = 2. During the [facility] titration sleep study on 06/13/24, sleep onset = 5 minutes, REM onset = 76.5 minutes, PLMI = 0.0. The patient uses a [employer] AirCurve 10 autoset unit with heated humidification. The patient does not need the ramp to start low and go up slowly on the pressure. There is some xerostomia in a.m. There is no hose/mask condensation with water. The patient wears a Respironics medium DreamWear nasal mask with chin strap. There is no claustrophobia, no nostril/nose bridge irritation, no facial rash, no facial numbness, no nosebleeding. The patient feels more refreshed upon waking and daytime alertness is improved. Energy levels are sustained for the remainder of the day. At home, the patient sleeps from 10 pm to 6 am and wakes up by . Snoring: heavy, since .Snorting: yesChoking: noCoughing: yesGasping: yesGagging: noSighing: yesWitnessed apnea: yesTwitching or jerking of leg(s), arm(s), body, head: yesTeeth grinding: noTeeth clenching: noSleeptalking: yesSleepwalking: noSleep crying: noBedwetting: noTongue/lip/gum/cheek biting: noSleeping with open mouth: yesSleep paralysis: noHypnagogic hallucinations: noHypnopompic hallucinations: noVivid dreams: yes, yellingDifficulty with sleep onset: yesDifficulty with sleep maintenance: yesSleep interruptions: nocturia x 3Patient wakes up with: fatigue, xerostomia, sore throat, hoarse voice, headaches, jaw pain, disorientation, cognitive impairment, mobility impairment, dexterity impairmentDaytime cataplexy: noMorning hypersomnolence: yesAfternoon hypersomnolence: yesCaffeine sources in diet: soda 6 cans per day, chocolate 1 candy bar per month Associated medical and psychiatric conditions:Congestive heart failure: noCoronary artery disease: yesMyocardial infarction: yesHypertension: yesStroke: yesBronchial asthma: noChronic obstructive pulmonary disease: noDepression: yesBipolar disorder: noAnxiety: yesPanic disorder: noPosttraumatic stress disorder: noAttention deficit and hyperactivity disorder: noObsessive Compulsive disorder: noSchizophrenia: noSchizoaffective disorder: noPersonality disorder: noChronic analgesic use: noChronic sedative/hypnotic use: no EPWORTH SLEEPINESS SCALE (ESS) CHANCE OF DOZING SCORE0 = would never doze1 = slight chance of dozing2 = moderate chance of dozing3 = high chance of dozing SITUATION AND CHANCE OF DOZINGSitting and reading - 3Watching television - 2Sitting inactive in a public place (e.g. a theater or meeting) - 2As a passenger in a car for an hour without a break - 2Lying down to rest in the afternoon when circumstances permit - 2Sitting and talking to someone - 1Sitting quietly after lunch without alcohol - 2In a car, while stopped for a few minutes in the traffic - 1TOTAL SCORE 15Subjectively, patient has a moderate chance of dozing. Kenton Killian MD [address] [place] [address], [address], [phone], [facility] 06/18/2024 17:00:23 09/11/2024 text/html Primary care/Referring provider: Man Paula PA-C During the [facility] diagnostic sleep study on 03/06/24, sleep onset = 12 minutes, REM onset = 124 minutes, AHI = 27, supine AHI = 58, REM AHI = 77, PLMI = 2. During the [facility] titration sleep study on 06/13/24, sleep onset = 5 minutes, REM onset = 76.5 minutes, PLMI = 0.0. At home since 07/27/24, the patient uses a ResMed AirCurve 10 autoset unit with heated humidification. The patient does not need the ramp to start low and go up slowly on the pressure. There is some xerostomia in a.m. There is no hose/mask condensation with water. The patient wears a Respironics medium DreamWear nasal mask with chin strap. There is no claustrophobia, no nostril/nose bridge irritation, no facial rash, no facial numbness, no nosebleeding. The patient feels more refreshed upon waking and daytime alertness is improved. Energy levels are sustained for the remainder of the day. At home, the patient sleeps from 10 pm to 6 am and wakes up by . Snoring: heavy, since .Snorting: yesChoking: noCoughing: yesGasping: yesGagging: noSighing: yesWitnessed apnea: yesTwitching or jerking of leg(s), arm(s), body, head: yesTeeth grinding: noTeeth clenching: noSleeptalking: yesSleepwalking: noSleep crying: noBedwetting: noTongue/lip/gum/cheek biting: noSleeping with open mouth: yesSleep paralysis: noHypnagogic hallucinations: noHypnopompic hallucinations: noVivid dreams: yes, yellingDifficulty with sleep onset: yesDifficulty with sleep maintenance: yesSleep interruptions: nocturia x 3Patient wakes up with: fatigue, xerostomia, sore throat, hoarse voice, headaches, jaw pain, disorientation, cognitive impairment, mobility impairment, dexterity impairmentDaytime cataplexy: noMorning hypersomnolence: yesAfternoon hypersomnolence: yesCaffeine sources in diet: soda 6 cans per day, chocolate 1 candy bar per month Associated medical and psychiatric conditions:Congestive heart failure: noCoronary artery disease: yesMyocardial infarction: yesHypertension: yesStroke: yesBronchial asthma: noChronic obstructive pulmonary disease: noDepression: yesBipolar disorder: noAnxiety: yesPanic disorder: noPosttraumatic stress disorder: noAttention deficit and hyperactivity disorder: noObsessive Compulsive disorder: noSchizophrenia: noSchizoaffective disorder: noPersonality disorder: noChronic analgesic use: noChronic sedative/hypnotic use: no EPWORTH SLEEPINESS SCALE (ESS) CHANCE OF DOZING SCORE0 = would never doze1 = slight chance of dozing2 = moderate chance of dozing3 = high chance of dozing SITUATION AND CHANCE OF DOZINGSitting and reading - 2Watching television - 1Sitting inactive in a public place (e.g. a theater or meeting) - 2As a passenger in a car for an hour without a break - 2Lying down to rest in the afternoon when circumstances permit - 3Sitting and talking to someone - 1Sitting quietly after lunch without alcohol - 2In a car, while stopped for a few minutes in the traffic - 0TOTAL SCORE 13Subjectively, patient has a moderate chance of dozing. Kenton Killian MD [address] [place] [address], [id number], [facility] [employer] 09/11/2024 11:29:37 07/31/2025 text/html Primary care/Referring provider: Man Paula PA-C During the [facility] diagnostic sleep study on 03/06/24, sleep onset = 12 minutes, REM onset = 124 minutes, AHI = 27, supine AHI = 58, REM AHI = 77, PLMI = 2. During the [facility] titration sleep study on 06/13/24, sleep onset = 5 minutes, REM onset = 76.5 minutes, PLMI = 0.0. At home since 09/11/24, the patient uses a ResMed AirCurve 10 autoset unit with heated humidification. The patient does not need the ramp to start low and go up slowly on the pressure. There is some xerostomia in a.m. There is no hose/mask condensation with water. The patient wears a Respironics medium DreamWear nasal mask with chin strap. There is no claustrophobia, no nostril/nose bridge irritation, no facial rash, no facial numbness, no nosebleeding. The patient feels more refreshed upon waking and daytime alertness is improved. Energy levels are sustained for the remainder of the day. At home, the patient sleeps from 10 pm to 6 am and wakes up by . Snoring: heavy, since .Snorting: yesChoking: noCoughing: yesGasping: yesGagging: noSighing: yesWitnessed apnea: yesTwitching or jerking of leg(s), arm(s), body, head: yesTeeth grinding: noTeeth clenching: noSleeptalking: yesSleepwalking: noSleep crying: noBedwetting: noTongue/lip/gum/cheek biting: noSleeping with open mouth: yesSleep paralysis: noHypnagogic hallucinations: noHypnopompic hallucinations: noVivid dreams: yes, yellingDifficulty with sleep onset: yesDifficulty with sleep maintenance: yesSleep interruptions: nocturia x 3Patient wakes up with: fatigue, xerostomia, sore throat, hoarse voice, headaches, jaw pain, disorientation, cognitive impairment, mobility impairment, dexterity impairmentDaytime cataplexy: noMorning hypersomnolence: yesAfternoon hypersomnolence: yesCaffeine sources in diet: soda 6 cans per day, chocolate 1 candy bar per month Associated medical and psychiatric conditions:Congestive heart failure: noCoronary artery disease: yesMyocardial infarction: yesHypertension: yesStroke: yesBronchial asthma: noChronic obstructive pulmonary disease: noDepression: yesBipolar disorder: noAnxiety: yesPanic disorder: noPosttraumatic stress disorder: noAttention deficit and hyperactivity disorder: noObsessive Compulsive disorder: noSchizophrenia: noSchizoaffective disorder: noPersonality disorder: noChronic analgesic use: noChronic sedative/hypnotic use: no EPWORTH SLEEPINESS SCALE (ESS) CHANCE OF DOZING SCORE0 = would never doze1 = slight chance of dozing2 = moderate chance of dozing3 = high chance of dozing SITUATION AND CHANCE OF DOZINGSitting and reading - 3Watching television - 2Sitting inactive in a public place (e.g. a theater or meeting) - 1As a passenger in a car for an hour without a break - 1Lying down to rest in the afternoon when circumstances permit - 2Sitting and talking to someone - 0Sitting quietly after lunch without alcohol - 1In a car, while stopped for a few minutes in the traffic - 0TOTAL SCORE 10Subjectively, patient has a moderate chance of dozing. Kenton Killian MD [address] [place] [address], [place], [address], [place] [facility] [employer] [facility] 07/31/2025 12:10:26 OBGyn Episode No OBEpisode recorded.
--- OUTSIDE RECORDS SUMMARY | 2025-10-03 14:30 | XMS_ITS | Clinical Summary ---
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
[2025-10-03] MEDS: HEPARIN SOD/D5W 100 UNITS/ML 25,000 UNITS/250 ML BAG 7 UNITS IV CONT (14:48)
[2025-10-03 15:07] LABS: BEDSIDEPREGUCG Negative (Negative)
--- NOTE | 2025-10-03 16:07 | PM.CNCAR ---
Assessment and Plan Assessment and plan (1) Chest pain: Code(s): R07.9 - Chest pain, unspecified Status: Acute Assessment and Plan: Troponin elevated at 2.06. NSTEMI. Trend troponin to peak. Obtain echo. On heparin drip, aspirin, Atorvastatin, Coreg. Discuss risks/benefits/alternative to [facility] and she is agreeble to it. Consult [facility] for it. (2) Elevated troponin: Code(s): R79.89 - Other specified abnormal findings of blood chemistry Status: Acute (3) Tobacco dependence: Code(s): F17.200 - Nicotine dependence, unspecified, uncomplicated Status: Acute Assessment and Plan: Counseled regarding smoking cessation. (4) Hypertension: Code(s): I10 - Essential (primary) hypertension Status: Acute Assessment and Plan: Stable. (5) Dyslipidemia: Code(s): E78.5 - Hyperlipidemia, unspecified Status: Acute Assessment and Plan: On Atorvastatin. History of Present Illness History of Present Illness Consult date/time: 10/03/25 16:07 Reason For Visit: chest pain Narrative: 40 yr old woman who is my regular cardiology patient presents to ER with chest pain. She has a history of stroke, systolic dysfunction, hypertension, dyslipidemia, smoking, ROBBY (sees Dr. Cristina), obesity. States 5 days ago sharp chest pain radiating to left arm and has been constant since. She has palpitations lasting a couple of minutes worse when she is stressed. She can walk 1/2 block and limited by BANSAL and chest pain. She smokes 1/3 ppd. She is using BiPAP regularly. Denies orthopnea, PND, dizziness. She has a history of stroke where she reports she felt numbness of face, left arm and slurred speech which lasted a couple of hours. MRI brain showed patchy infarct of posterior frontal lobe. Cardiovascular Procedures Creeler:: 04/12/24 CTA of heart at [facility]: Normal coronaries. Calcium score 0. Echo/MUGA:: 06/18/25 Echo: EF 45-50%, mild LVE, grade I diastolic dysfunction (E/e' 14). 06/22/24 Echo: TDS. EF 45-50%, grade I diastolic dysfunction, mild MR. 12/20/23 Echo: EF 50-55%, grade I diastolic dysfunction, mild LAE, mild MR, negative bubble steudy. Electrophysiology:: 12/21/23 17 days event monitor: Sinus rhythm, HR range 50-120 bpm; average 80; 2% PAC, 3% PVC, 1 VT at 120 bpm lasting 8 beats on 12/31/23 at 17:08. 12/20/23 EKG: Sinus rhythm, MARIYA, inferior infarct, age indeterminate. Stress Tests:: 03/01/24 Lexiscan myoview: Abnormal with small area of ischemia surrounding large area of fixed defect in LAD distribution. 06/21/24 CXR: CHF. 12/20/23 MRI brain: Patchy acute infarct in posterior right frontal lobe. Review of Systems Review of Systems: All systems reviewed & are unremarkable except as noted in HPI and below Constitutional: Constitutional: Reports as per HPI, Denies chills and Denies fever(s) Cardiovascular: Cardiovascular: Reports as per HPI, Reports chest pain and Denies irregular heart rhythm Respiratory: Respiratory: Reports as per HPI and Reports dyspnea on exertion Gastrointestinal: Gastrointestinal: Reports as per HPI and Denies abdominal pain Genitourinary: Genitourinary: Reports as per HPI and Denies dysuria Musculoskeletal: Musculoskeletal: Reports as per HPI Neurologic: Reports as per HPI, Denies dizziness and Denies syncope [facility] Past Medical History Medical History Sleep apnea CAD (coronary artery disease) Family History Family History Other Breast cancer Diabetes mellitus Social History Social History (Updated 06/26/25 @ 13:45 by Megan Osullivan MA) Smoking packs per day: 0.5 Smoking cigarettes per day: 10.0 Years smoked: 20 Smoking pack-years: 10.00 Smoking status: Former smoker Tobacco type: cigarettes and e-cigarettes/vaping Second hand tobacco smoke exposure: Yes Alcohol intake: never Substance use: current Substance use type: marijuana Other substance usage details: gummies rarely Do You Feel Safe in your Home?: Yes Lack of Transportation: No Lack of Food: Never True Current Housing: I Have Housing Concerned About Future Housing: No Difficulty Paying Gas/Electric Bills: No Difficulty Paying for Meds: No Currently Unemployed: No Education: High School Diploma/GED Difficulty w/ Childcare or Family Care: No Spiritual care concerns: No Meds Home Medications and Allergies Home Medications ?Medication ?Instructions ?Recorded ?Confirmed ?Type vitamin B complex 1 tablet PO DAILY 06/22/24 06/26/25 History empagliflozin 10 mg tablet See Rx Instructions .Route 11/28/24 06/26/25 Rx (Jardiance) .COMPLEX #30 tabs cholecalciferol (vitamin D3) 25 25 mcg PO DAILY 12/12/24 06/26/25 History mcg (1,000 unit) capsule atorvastatin 40 mg tablet 40 mg PO DAILY #30 tabs 12/24/24 06/26/25 Rx furosemide 20 mg tablet See Rx Instructions .Route 01/16/25 06/26/25 Rx .COMPLEX #90 tabs losartan 25 mg tablet See Rx Instructions .Route 01/16/25 06/26/25 Rx .COMPLEX #90 tabs carvedilol 3.125 mg tablet See Rx Instructions .Route 04/09/25 06/26/25 Rx .COMPLEX #180 tabs albuterol sulfate 90 mcg/actuation 1 puff inhalation Q4H PRN 06/26/25 06/26/25 History aerosol inhaler (Ventolin HFA) cyclobenzaprine 10 mg tablet 10 mg PO TID 06/26/25 06/26/25 History diclofenac sodium 75 mg 75 mg PO BID 06/26/25 06/26/25 History tablet,delayed release fluoxetine 60 mg tablet 30 mg PO DAILY 06/26/25 06/26/25 History folic acid 1 mg tablet 1 mg PO DAILY 06/26/25 06/26/25 History hydroxyzine HCl 25 mg tablet 25 mg PO BID 06/26/25 06/26/25 History aspirin 81 mg tablet,delayed See Rx Instructions .Route 08/12/25 Rx release .COMPLEX #30 tabs clopidogrel 75 mg tablet See Rx Instructions .Route 09/16/25 Rx .COMPLEX #30 tabs Allergies Allergy/AdvReac Type Severity Reaction Status Date / Time No Known Allergies Allergy Mild Verified 10/03/25 12:59 Vital Signs Vital Signs - 24 hr 10/03/25 13:02 10/03/25 14:00 10/03/25 14:02 Temperature 97.5 F L Pulse Rate 83 84 Respiratory Rate 16 18 Blood Pressure 152/92 H 138/88 Pulse Oximetry 98 98 98 Oxygen Delivery Room Air 10/03/25 14:02 10/03/25 14:04 Temperature Pulse Rate 84 84 Respiratory Rate 14 Blood Pressure 138/88 Pulse Oximetry 98 Oxygen Delivery Room Air Exam Const: General: cooperative, healthy appearing, comfortable and obese Resp: Auscultation: clear to auscultation bilaterally, no crackles, no rales, no rhonchi and no wheezes Cardio: Rate: regular rate Rhythm: regular rhythm Heart sounds: no murmurs Peripheral pulses: dorsalis pedis present GI: GI Palp: No abdominal tenderness and Yes Soft to palpation Neuro: General: oriented to person, oriented to place and oriented to time Extrem: Right lower extremity: no edema Left lower extremity: no edema Results Labs and Meds 10/03/25 12:59 10/03/25 12:59 Lab results: Cardiac Enzymes 10/03/25 Range/Units 12:59 AST 35 (14-36) U/L Troponin I 2.060 H* (0.000-0.034) ng/mL Coagulation 10/03/25 Range/Units 12:59 PT 12.2 (11.1-14.7) Seconds APTT 29.4 (22.3-36.8) Seconds CBC 10/03/25 Range/Units 12:59 WBC 12.5 H (4.5-10.0) K/mm3 RBC 4.40 (4.2-5.4) M/mm3 Hgb 13.7 (12.0-15.0) g/dL Hct 42.5 (37.0-47.0) % Plt Count 391 H (150-375) k/mm3 Lymph # (Auto) 3.17 (0.9-3.2) K/mm3 Limestone # (Auto) 0.8 H (0.1-0.6) K/mm3 Eos # (Auto) 0.4 H (0-0.3) K/mm3 Baso # (Auto) 0.1 (0.0-0.1) K/mm3 Comprehensive Metabolic Panel 10/03/25 Range/Units 12:59 Sodium 138 (137-145) mmol/L Potassium 3.9 (3.4-5.0) mmol/L Chloride 104 (98-107) mmol/L Carbon Dioxide 29 (22-30) mmol/L BUN 13 (7-17) mg/dL Creatinine 0.86 (0.7-1.0) mg/dL Glucose 113 H (65-110) mg/dL Calcium 8.7 (8.4-10.2) mg/dL AST 35 (14-36) U/L ALT 45 H (6-35) U/L Alkaline Phosphatase 132 H (38-126) U/L Total Protein 7.6 (6.3-8.2) g/dL Albumin 3.8 (3.5-5.1) g/dL Patient Weight 10/03/25 23:59 Weight 81 kg
--- NOTE | 2025-10-03 16:26 | ECG_ITS ---
Test Date: 2025-10-03 16:29:35 Measurements Intervals [place] Rate: 85 P: 51 OR: 145 QRS: 1 QRSD: 105 T: 126 QT: 371 QTc: 443 Interpretive Statements SINUS RHYTHM POSSIBLE LEFT ATRIAL ENLARGEMENT [-0.1mV P-WAVE IN V1/V2] PREVIOUS ANTERIOR INFARCTION+ ABNORMAL ECG Compared to ECG 10/03/2025 12:52:54 No significant changes Electronically Signed On 10-04-2025 12:59:30 SENIOR MARKETING ENGINEER by Macho Almanzar M.D.
--- NOTE | 2025-10-03 16:35 | PM.IMHP ---
H&P: HPI History of Present Illness Date/Time: 10/03/25 16:35 Chief Complaint: Chest Pain Narrative: 40 y/o F with PMH of stroke, systolic dysfunction (sees Dr. Perdomo), hypertension, dyslipidemia, smoking, ROBBY (sees Dr. Cristina), and obesity presents here with chest pain. The patient presents here from home on 10/03 for further evaluation of chest pain. She reports onset of left-sided chest pain on Tuesday, 09/28. Initially contacted her PCP who directed her to the emergency department. She describes the chest pain as sharp with exertion and now dull, radiation into her shoulder and left upper extremity intermittently, constant, aggravated by exertion and will then radiate into her throat, and alleviated somewhat by rest. Reports accompanying headache that started yesterday and intermittent shortness of breath. Denies associated nausea, diaphoresis, or palpitations. Did not take any OTC or medications at home for her symptoms. Currently follows with Dr. Perdomo for her cardiac care. Last saw him in office in June of 2025, noted at that time to have a negative CTA of the heart from March of 2024. Initial VS at presentation: 97.5? F, HR 83, R 16, 152/92, and 98% on RA. ED workup showed: WBC 12.5, no anemia, normal coags, no significant electrolyte derangements, creatinine 0.86 and GFR >60, glucose 113, ALT 45, alk-phos 132, initial troponin 2.06 (repeat 2.2). CXR showed cardiomegaly and mild pulmonary vascular congestion. Chest CTA showed no PE, minimal atelectatic changes with no gross acute intrathoracic process. EKG showed sinus rhythm, possible left atrial enlargement, inferior TN probably old, anterolateral TN of indeterminate age (no significant changes when compared to prior). Review of Systems Review of Systems: All systems reviewed & are unremarkable except as noted in HPI and below PMFSH Past Medical History Medical History Tobacco dependence Hypertension Dyslipidemia Systolic dysfunction Depression Anxiety Myocardial infarction (~01/2024) CVA (cerebral vascular accident) Sleep apnea CAD (coronary artery disease) Surgical History Surgical History History of section History of cholecystectomy History of cardiac catheterization Family History Family History (Updated 10/03/25 @ 17:53 by Chely Vargas, RN) Father Diabetes mellitus Mother Diabetes mellitus Mother Breast cancer Bone cancer Father Myocardial infarction Social History Social History Smoking packs per day: 0.5 Smoking cigarettes per day: 10.0 Years smoked: 22 Smoking pack-years: 11.00 Smoking status: Heavy tobacco smoker Tobacco type: cigarettes Second hand tobacco smoke exposure: Yes Alcohol intake: never Substance use: never Substance use type: does not use Other substance usage details: gummies rarely Do You Feel Safe in your Home?: Yes Lack of Transportation: No Lack of Food: Never True Current Housing: I Have Housing Concerned About Future Housing: No Difficulty Paying Gas/Electric Bills: No Difficulty Paying for Meds: No Currently Unemployed: No Education: High School Diploma/GED Difficulty w/ Childcare or Family Care: No Spiritual care concerns: No Meds Home Medications and Allergies Home Medications ?Medication ?Instructions ?Recorded ?Confirmed ?Type empagliflozin 10 mg tablet See Rx Instructions .Route 11/28/24 10/03/25 Rx (Jardiance) .COMPLEX #30 tabs atorvastatin 40 mg tablet 40 mg PO DAILY #30 tabs 12/24/24 10/03/25 Rx furosemide 20 mg tablet See Rx Instructions .Route 01/16/25 10/03/25 Rx .COMPLEX #90 tabs losartan 25 mg tablet See Rx Instructions .Route 01/16/25 10/03/25 Rx .COMPLEX #90 tabs carvedilol 3.125 mg tablet See Rx Instructions .Route 04/09/25 10/03/25 Rx .COMPLEX #180 tabs albuterol sulfate 90 mcg/actuation 1 puff inhalation Q4H PRN 06/26/25 10/03/25 History aerosol inhaler (Ventolin HFA) shortness of breath or wheezing fluoxetine 60 mg tablet 60 mg PO DAILY 06/26/25 10/03/25 History folic acid 1 mg tablet 1 mg PO DAILY 06/26/25 10/03/25 History hydroxyzine HCl 25 mg tablet 25 mg PO BID 06/26/25 10/03/25 History aspirin 81 mg tablet,delayed See Rx Instructions .Route 08/12/25 10/03/25 Rx release .COMPLEX #30 tabs clopidogrel 75 mg tablet See Rx Instructions .Route 09/16/25 10/03/25 Rx .COMPLEX #30 tabs ergocalciferol (vitamin D2) 1,250 1,250 mcg PO MONTHLY 10/03/25 10/03/25 History mcg (50,000 unit) capsule Allergies Allergy/AdvReac Type Severity Reaction Status Date / Time No Known Allergies Allergy Mild Verified 10/03/25 17:45 Vital Signs Vital Signs - 24 hr 10/03/25 13:02 10/03/25 14:00 10/03/25 14:02 Temperature 97.5 F L Pulse Rate 83 84 Respiratory Rate 16 18 Blood Pressure 152/92 H 138/88 Pulse Oximetry 98 98 98 Oxygen Delivery Room Air 10/03/25 14:02 10/03/25 14:04 Temperature Pulse Rate 84 84 Respiratory Rate 14 Blood Pressure 138/88 Pulse Oximetry 98 Oxygen Delivery Room Air Exam Const: General: comfortable and no acute distress Other: , female, nontoxic appearance HENMT: Face/Nose/Sinus: Normal nares present Mouth: Yes moist mucous membranes Other: Poor dentition Eyes: General: appearance normal, both eyes and all related structures Sclera: sclerae normal Pupils: Equal, round and reactive pupils present EOM: EOMs intact bilaterally Resp: Effort & Inspection: normal respiratory effort Auscultation: clear to auscultation bilaterally Cardio: Rate: regular rate Rhythm: regular rhythm Other: S1-S2 present without murmur, rub, ectopy GI: Other: Abdomen soft, nondistended, nontender. Normoactive bowel sounds in all quadrants. Skin: General skin exam: normal color and no rashes or lesions noted Wounds: no wounds Neuro: Speech: normal speech Motor exam (neuro): 5/5 motor strength present throughout Sensory Exam: normal sensation Other: A&O x4 Extrem: Other: 1+ edema to BLE, legs tight without pitting. Psych: Mental Status: mental status grossly normal Affect: normal affect Other: Good insight and judgment, very pleasant H&P: Results Labs Labs: Short CBC 10/03/25 Range/Units 12:59 WBC 12.5 H (4.5-10.0) K/mm3 Hgb 13.7 (12.0-15.0) g/dL Hct 42.5 (37.0-47.0) % Plt Count 391 H (150-375) k/mm3 BMP 10/03/25 12:59 Sodium 138 Potassium 3.9 Chloride 104 Carbon Dioxide 29 BUN 13 Creatinine 0.86 Glucose 113 H Calcium 8.7 Cardiac Enzymes 10/03/25 Range/Units 12:59 Troponin I 2.060 H* (0.000-0.034) ng/mL Liver Function 10/03/25 Range/Units 12:59 Total Bilirubin 0.3 (0.2-1.3) mg/dL AST 35 (14-36) U/L ALT 45 H (6-35) U/L Alkaline Phosphatase 132 H (38-126) U/L Albumin 3.8 (3.5-5.1) g/dL Assessment and Plan Assessment and plan (1) NSTEMI (non-ST elevated myocardial infarction): Code(s): I21.4 - Non-ST elevation (NSTEMI) myocardial infarction Status: Acute Assessment and Plan: Developed chest pain 5 days ago on Tuesday, 09/28. Described as dull, with some intermittent radiation into her shoulder and left upper extremity and with exertion will radiate into her throat and painful sharpen, constant since onset. Accompanied by headache and intermittent shortness of breath. Initial troponin 2.060. EKG personally reviewed, no significant ST depressions or elevations or changes compared to prior. Workup consistent with NSTEMI. - troponin: 2.060 -> 2.2 -> 2.19 - cardiology consulted, Dr Perdomo. See note -> sports medicine physician consulted, made NPO midnight in case of cardiac catheterization tomorrow. - started on heparin gtt on 10/03 - continue Aspirin, Atorvastatin, Coreg - nitro SL p.r.n. - obtain echo - check lipid panel (2) Systolic dysfunction: Code(s): I51.9 - Heart disease, unspecified Status: Chronic Assessment and Plan: Reporting BANSAL. CXR concerning for pulmonary edema. No pulmonary edema at noted by radiologist on chest CTA. Lung windows reviewed, mild pulmonary edema noted bilaterally. Has mild bilateral lower extremity edema on exam, nonpitting and lower extremities are tight. - previous echo, 06/18/25: EF 45-50%, mild LVE, grade I diastolic dysfunction (E/e' 14). - update echo - Lasix 40 mg IV x 1, bilateral lower extremities tight on exam without pitting edema -> continue Lasix 20 mg p.o. and Jardiance. May need additional IV doses, however volume overload mild at best on exam. - monitor daily weights - trend renal function (3) Hypertension: Qualifiers: Hypertension type: primary hypertension Qualified Code(s): I10 - Essential (primary) hypertension Code(s): I10 - Essential (primary) hypertension Status: Chronic Assessment and Plan: - chronic, currently 126/81, stable. - continue home medications: Losartan - monitor (4) Dyslipidemia: Code(s): E78.5 - Hyperlipidemia, unspecified Status: Chronic Assessment and Plan: - continue atorvastatin (5) Sleep apnea: Qualifiers: Sleep apnea type: unspecified type Qualified Code(s): G47.30 - Sleep apnea, unspecified Code(s): G47.30 - Sleep apnea, unspecified Status: Chronic Assessment and Plan: - continue home CPAP/BiPAP Plan Diet: Heart healthy, NPO midnight GI Prophylaxis: N/a DVT Prophylaxis: Heparin gtt IV fluids: None Lines/Tubes: Peripheral IV Code Status: Full code Quality VTE Prophylaxis VTE prophylaxis: pharmacologic ordered Hospitalist [facility] Advance Care Plan I have confirmed that the patient's Advanced Care Plan is present, code status is documented, or surrogate decision maker is listed in patient medical record.: Yes Medication Reconciliation I have utilized all available resources to obtain, update and review the patients current medications (includes all prescriptions, OTC, herbals, cannabis, and nutritional supplements).: Yes
[2025-10-03 16:38] LABS: Troponin I 2.200 ng/mL (0.000-0.034)
--- NOTE | 2025-10-03 17:06 | WPCEDHO ---
ED Hand Off Checklist All vitals saved: yes IV Site documented: yes All med administrations documented: yes Triage Note Triage Note ambulatory sent in from PCP with 10/03/25 14:02 c/o CP since Tuesday; pain reported to anastasiia. no meds ERADICATOR. radiates into shoulder and left arm at times. agree with triage note Allergies No Known Allergies Allergy (Mild, Verified 10/03/25 12:59) Current Diagnoses Hyperlipidemia, unspecified (10/03/25) Nicotine dependence, unspecified, uncomplicated (10/03/25) Essential (primary) hypertension (10/03/25) Chest pain, unspecified (10/03/25) Other specified abnormal findings of blood chemistry (10/03/25) Family History (Last Reviewed 06/26/25 @ 13:36 by Megan Osullivan MA) Other Breast cancer Diabetes mellitus Active Medications including assessments/comments Heparin Sodium/Dextrose (Heparin Sodium/D5w 100 Units/Ml) 25,000 units in 250 mls @ 7 mls/hr IV CONT .Q24H DAVIDA; Protocol Last Admin: 10/03/25 14:48 Dose: 700 units/hr, 7 mls/hr Documented By: CAROLYN Co-signed By: MARYJANEN Infusion/Titration Document 10/03/25 14:48 LDD (Rec: 10/03/25 14:49 LDD [id number]) Co-signed By Dai Powell RN Intake IV Site Peripheral Access Right Hand Container Volume 250 Waste Amount 0 Dosing Dose Rate 700 Infusion Rate 7 Increase/Decrease Started Elapsed Time Elapsed Time ( 0m minutes) Heparin Infusion Assessment Document 10/03/25 14:48 LDD (Rec: 10/03/25 14:49 CAROLYN [id number]) Co-signed By Dai Powell RN Heparin Infusion Assessment Heparin Infusion Initiated Action Administered/Completed Medications Discontinued Medications Heparin Sodium (Porcine) (Heparin Sodium 5,000 Units/Ml Vial) 3,500 units IV PUSH ONCE ONE Stop: 10/03/25 14:26 Last Admin: 10/03/25 14:48 Dose: 3,500 units Documented By: CAROLYN Co-signed By: HALEIGH Interventions/Assessments Cardiac Monitoring Start: 10/03/25 12:47 Freq: Status: Active Protocol: Document 10/03/25 14:04 LDD (Rec: 10/03/25 14:04 LDD [id number]) Rope Cutter Assessment Rope Cutter Yes Applied Pulse Rate (60-100) 84 EKG Rythm Sinus Rhythm IV / Saline Lock, Insert Start: 10/03/25 12:49 Freq: STAT Status: Active Protocol: Document 10/03/25 14:12 LDD (Rec: 10/03/25 14:12 LDD [id number]) IV Assessment Peripheral Access Right Hand IV Catheter Access Initiated IV Insertion Date 10/03/25 IV Insertion Time 14:12 Catheter Gauge 20 IV Insertion 2 Attempts Ultrasound Used for No Placement IV Care and WNL Maintenance PA: Cardiovascular Assessment Start: 10/03/25 12:47 Freq: Status: Active Protocol: Document 10/03/25 14:00 LDD (Rec: 10/03/25 14:02 LDD [id number]) Cardiovascular Assessment Cardiovascular Chest Pain Symptoms Skin Description Normal Color Heart Sounds Normal Jugular Vein None Distention PA: Respiratory Assessment Start: 10/03/25 12:47 Freq: Status: Active Protocol: Document 10/03/25 14:00 LDD (Rec: 10/03/25 14:02 LDD [id number]) Respiratory Assessment Symptoms None Effort Normal Pattern Regular Depth Normal Chest Expansion Symmetrical Cough Description None Sputum Amount None Oxygen Delivery Oxygen Delivery Room Air Pulse Oximetry (90- 98 100) Last Vital Signs Temperature 97.5 F L 10/03/25 13:02 Pulse Rate 81 10/03/25 17:05 Respiratory Rate 17 10/03/25 17:05 Pulse Oximetry 100 10/03/25 17:05 Blood Pressure 129/79 10/03/25 17:05 Blood Pressure Mean 95 10/03/25 17:05 Oxygen Delivery Room Air 10/03/25 14:02 Weight 81 kg 10/03/25 14:02 Last Result - Abnormals Only WBC 12.5 K/mm3 (4.5-10.0) H 10/03/25 12:59 RDW 14.7 % (11.5-14.5) H 10/03/25 12:59 Plt Count 391 k/mm3 (150-375) H 10/03/25 12:59 Immature Gran % (Auto) 1.1 % (0-0.5) H 10/03/25 12:59 [place] # (Auto) 0.8 K/mm3 (0.1-0.6) H 10/03/25 12:59 Eos # (Auto) 0.4 K/mm3 (0-0.3) H 10/03/25 12:59 Abs Immat Gran (auto) 0.14 K/mm3 (0.00-0.031) H 10/03/25 12:59 Absolute Neuts (auto) 7.9 K/mm3 (1.3-6.7) H 10/03/25 12:59 Glucose 113 mg/dL (65-110) H 10/03/25 12:59 ALT 45 U/L (6-35) H 10/03/25 12:59 Alkaline Phosphatase 132 U/L (38-126) H 10/03/25 12:59 Troponin I 2.200 ng/mL (0.000-0.034) H* 10/03/25 16:03 Most Recent Suicide Severity Rating Suicide Severity Rating NO RISK INDICATED 10/03/25 14:02
--- OUTSIDE RECORDS SUMMARY | 2025-10-03 17:06 | XMS_ITS | Encounter Summary ---
Author Organization [facility] Address [facility] [place] [address] Care Team Providers Care Meat Counter Worker Name Role Phone Maury Yen MD Primary Care Provider [phone] Encounter Details Date Type Department Care Team (Late st Contact Info) Description 05/14/2020 [employer] Message Enc [facility] Medical [facility] Family Medicine [address] [address] Maury Yen MD [address] [place] [address] RE: Other Social History Tobacco [...] on filedocumented in this encounter Care Teams Meat Counter Worker Relationship Specialty Start Date End Date Maury Yen MD PCP - General FAMILY PRACTICE 11/24/18 documented as of this encounter
--- OUTSIDE RECORDS SUMMARY | 2025-10-03 17:06 | XMS_ITS | Encounter Summary ---
Author Organization [facility] Address [facility] [place] [address] Care Team Providers Care Sheep Killer Name Role Phone Maury Yen MD Primary Care Provider [phone] Encounter Details Date Type Department Care Team (Late st Contact Info) Description 08/27/2020 [employer] Message Enc [facility] Medical Group Family Medicine [address] [address] Maury Yen MD [address] [facility] [place] [address] RE: Other Social History Tobacco [...] on filedocumented in this encounter Care Teams Sheep Killer Relationship Specialty Start Date End Date Maury Yen MD PCP - General FAMILY PRACTICE 11/24/18 documented as of this encounter
--- OUTSIDE RECORDS SUMMARY | 2025-10-03 17:06 | XMS_ITS | Encounter Summary ---
Author Organization [facility] Address [facility] [place] [address] Care Team Providers Care Registered Nurse Maternal Child Name Role Phone None, Provider Primary Care Provider Maury Vela MD Primary Care Provider [phone] Encounter Details Date Type Department Care Team (Late st Contact Info) Description 05/11/2018 Hospital Follow-up Call [facility] [place] [address] Sweetie Kamara RN Social History Tobacco Use [...] as of this encounter Care Teams Registered Nurse Maternal Child Relationship Specialty Start Date End Date None, Provider, PCP - General 11/21/18 11/23/18 Maury Yen MD PCP - General FAMILY PRACTICE 11/24/18 documented as of this encounter
--- OUTSIDE RECORDS SUMMARY | 2025-10-03 17:06 | XMS_ITS | Clinical Summary ---
Author Organization [facility] Sada Montesinos Address [address] [place] [address] [place] [address] Care Team Providers Care Cruise Consultant Name Role Phone Unavailable Primary Care Provider [...] on file Legal Sex Female 1:48 PM MANAGER BEHAVIOR Gender Identity Not on file Sexual Orientation [...] st Contact Info) Description 11/27/2025 1:00 PM MANAGER BEHAVIOR Office Visit [facility] Oncology and Hematology - [place] [address] [place] [address] Jose R Queen MD [address] [place] [address] Health Maintenance Due Date Last [...]
--- OUTSIDE RECORDS SUMMARY | 2025-10-03 17:06 | XMS_ITS | Clinical Summary ---
Author Organization [facility] Address [address] [place] [address] Care Team Providers Care Furniture Restorer Name Role Phone Maury Yen MD Primary Care Provider [phone] Allergies No known active allergies Medications cyclobenzaprine [...] HPV MRNA E6/E7 Routine 12/24/2014 12:04 PM SAPPHIRE STYLUS GRINDER from Last 3 Months or Most Recently Relevant to Health Maintenance Results * [facility] PAP REFLEX HPV MRNA E6/E7 (12/24/2014 12:04 PM SAPPHIRE STYLUS GRINDER) CHLAMYDIA TRACHOMATIS RNA TMA NOT DETECTED NOT DETECTED [facility] TO EPIC CONVERSION N.GONORRHOEAE RNA TMA (QST) NOT DETECTED NOT DETECTED [facility] TO EPIC CONVERSION Comment: This test was performed using the APTIMA COMBO2 Assay ([employer] The analytical performance characteristics of this assay, when used to test SurePath specimens have been determined by [employer]. RAY MCCULLOUGH MD REFLEX ADDED no [facility] P TO EPIC CONVERSION Comment: THIS TEST WAS PERFORMED AT [facility] [address], [place] [address] 12/24/2014 12:0 4 PM SAPPHIRE STYLUS GRINDER 12/24/2014 12:04 PM SAPPHIRE STYLUS GRINDER Narrative [facility] TO EPIC CONVERSION - 12/27/2014 9:03 AM SAPPHIRE STYLUS GRINDER This lab was migrated from [facility] and may be missing annotations or result [...] 5:18 AM 03/29/2018 8:33 AM Care Teams Furniture Restorer Relationship Specialty Start Date End Date Maury Yen MD PCP - General FAMILY PRACTICE 11/24/18
--- OUTSIDE RECORDS SUMMARY | 2025-10-03 17:06 | XMS_ITS | Clinical Summary ---
Author Organization [facility] Address [address] [place] [address] Care Team Providers Care Tetryl Blender Operator Name Role Phone Man Paula Primary Care Provider [phone] Allergies No known active allergies Medications atorvastatin [...] 01/20, 02/09/2023 Medical Devices Implanted Type Area Continuous Vulcanizing Machine Operator Device Identifier Shelf Expiration Date Model / Serial / Lot [employer] Angio-Seal Vip 6fr Closere Device [id number] - [id number] Implanted:Qty: 1 on 02/09/2023 by Keiko Guo MD at [facility] [employer] 08/20/2023 [id number] / / [id number] Procedures Procedure Name Priority Date/Time Associated Diagnosis [...] LAB BLOOD ORDERABLES Final Result YANIRA MELO [id number] [facility]. Department [place] [address] * (ABNORMAL) Hemoglobin A1c (08/15/2024 11:55 AM CDT) Hgb A1C 5.7(H) 4.0 - 5.6 % Estimated Average Glucose 117 mg/dL YANIRA MELO Comment: The ADA recommends reporting an estimated Average Glucose (eAG) with all Hemoglobin A1c results using the equation derived from a study of 507 normal and diabetic adults. Minority populations were underrepresented and children were not included. (Diabetes Care 31:7288-7633, 2008). The eAG is not equivalent to a fasting glucose. Blood 08/15/2024 11:5 5 AM CDT 08/15/2024 12:36 PM CDT us Renetta Hough NP LAB BLOOD ORDERABLES Final Result YANIRA [facility] [address] [facility]. [place] [address] * POCT lipid panel (02/25/2023 [...] Payer ID:[id number] (NAIC) Type:MEDICAID RISK OTHER Address: [place] [id number] [facility] Advance Directives For more information, please contact: [phone] * Full Code (Latest Code Status on File) Date Activated Date Inactivated Comments 02/09/2023 8:25 AM 02/11/2023 3:16 PM Care Teams Tetryl Blender Operator Relationship Specialty Start Date End Date Man Paula PA [address] [place] [address] PCP - General Physician Lab Rep 04/05/24
--- NOTE | 2025-10-03 18:26 | PC.NURSE ---
Patient arrived. Tele applied. Heparin drip verified. Admission completed.
[2025-10-03] MEDS: FUROSEMIDE INJ 40 MG/4 ML VIAL IV PUSH (18:43)
[2025-10-03 20:13] LABS: Cholesterol 210 mg/dL (0-200); HDL Direct 37 mg/dL; Partial Thromboplastin Time 33.3 Seconds (22.3-36.8); Triglycerides 229 mg/dL (<150)
[2025-10-03 20:32] LABS: Troponin I 2.190 ng/mL (0.000-0.034)
--- NOTE | 2025-10-03 20:39 | ECG_ITS ---
Test Date: 2025-10-03 20:45:42 Measurements Intervals Holly Rate: 85 P: 49 OR: 141 QRS: 18 QRSD: 96 T: 130 QT: 353 QTc: 421 Interpretive Statements SINUS RHYTHM POSSIBLE LEFT ATRIAL ENLARGEMENT [-0.1mV P WAVE IN V1/V2] PREVIOUS ANTERIOR INFARCTION ABNORMAL ECG Compared to ECG 10/03/2025 16:29:35 NO DIFFERENCE Electronically Signed On 10-04-2025 13:06:59 MANAGER REGIONAL SALES by Macho Almanzar M.D.
[2025-10-04] VITALS (31 sets, daily range): BP systolic 117–139; BP diastolic 73–97; PULSE 70–92; RESP 16–94; TEMP 36.3–37.1; O2SAT 91–98
--- NOTE | 2025-10-04 | ECHO_ITS ---
Patient Info Name: Rajani Yen Age: 40 years : 1985 Gender: Female Ht: 59 in Wt: 178 lbs BSA: 1.88 m2 HR: 76 bpm BP: 129 / 76 mmHg Technical Quality: Fair, Poor Exam Date: 10/04/2025 9:01 AM Patient Status: I Admit Date: 10/04/2025 Exam Type: CA echo dop color flow w con Complete two-dimensional, color flow and Doppler transthoracic echocardiogram is performed with contrast to opacify the left ventricle and to improve the deliniation of the left ventricle endocardial borders. Staff Referring Physician: Demetrius Winkler Engine Tester: Rafael Potts III Attending Provider: Gina Shrestha Contrast/Agitated Saline Contrast/Ag. Saline: Definity Amount: 2.00 ml Administered By: Rafael Potts III Existing IV Access: Yes IV Access Condition: patent with no signs of infiltration Reason for Poor Study: poor echocardiographic windows Summary 1. Definity contrast administered improved wall motion interpretation. 2. Left ventricular chamber dimension is mildly enlarged. 3. Left ventricular systolic function is mildly reduced, estimated at 45-50. 4. Mid to apical anteroseptum is hypokinetic. 5. The left ventricular diastolic function is grade I diastolic dysfunction. 6. E/e' 15 is elevated. 7. Left atrial chamber dimension is mildly enlarged. Left Ventricle Left ventricular chamber dimension is mildly enlarged. Left ventricular systolic function is mildly reduced, estimated at 45-50. The left ventricular diastolic function is grade I diastolic dysfunction. Definity contrast administered improved wall motion interpretation. Mid to apical anteroseptum is hypokinetic. E/e' 15 is elevated. Right Ventricle Right ventricular chamber dimension is normal. Right ventricular systolic function is normal. Left Atria Left atrial chamber dimension is mildly enlarged. Right Atria Right atrial chamber dimension is normal. Aortic Valve The aortic valve is not well visualized. Cannot determine number of aortic valve leaflets. There is no aortic valve stenosis. There is no aortic valve regurgitation. Pulmonic Valve There is no pulmonic regurgitation. Mitral Valve There is no mitral valve stenosis. There is no mitral valve regurgitation. Tricuspid Valve There is no tricuspid valve regurgitation. Pericardium/Pleural There is no pericardial effusion. Inferior Vena Cava Normal inferior vena cava with >50% collapse upon inspiration consistent with normal right atrial pressure, 5 mmHg. Aorta The aortic root size at the sinus of Valsalva is normal. Left Ventricular Outflow Tract Name Value Normal LVOT 2D LVOT Diameter 2.1 cm LVOT Doppler LVOT Peak Velocity 120 cm/s LVOT Peak Gradient 6 mmHg LVOT Mean Gradient 3 mmHg LVOT VTI 23 cm LVOT VTI/AV VTI Ratio 0.8 LVOT Stroke Volume 82 ml LVOT CO 5.8 l/min LVOT CI 3.1 l/min/m2 Pulmonic Valve Name Value Normal PV Doppler PV Peak Velocity 93 cm/s PV Peak Gradient 3 mmHg PV Mean Gradient 2 mmHg Mitral Valve Name Value Normal MV Doppler MV Peak Gradient 4 mmHg MV Mean Gradient 2 mmHg MV Area (Cont Eq VTI) 2.6 cm2 MV Diastolic Function MV E Peak Velocity 71 cm/s MV A Peak Velocity 95 cm/s MV E/A 0.8 MV Decel Time (PW) 213 ms MV Annular TDI MV E/e' (Septal) 16.6 MV E/e' (Lateral) 14.1 MV E/e' (Average) 15.3 Tricuspid Valve Name Value Normal TV Regurgitation Doppler TR Peak Velocity 14 cm/s TR Peak Gradient 0 mmHg Estimated PAP/RSVP RA Pressure 5 mmHg <=5 PA Systolic Pressure 5 mmHg <36 RV Systolic Pressure 5 mmHg <36 Aortic Valve Name Value Normal AV Doppler AV Peak Velocity 154 cm/s AV Peak Gradient 9 mmHg AV Mean Gradient 5 mmHg AV VTI 29 cm AV Area (Cont Eq VTI) 2.8 cm2 >=3.0 AV Area (Cont Eq Lefty) 2.8 cm2 AV DI (Lefty) 0.78 AV Regurgitation 2D LVOT Area 3.5 cm2 Ventricles Name Value Normal LV Dimensions 2D/MM IVS Diastolic Thickness (2D) 1.1 cm 0.6-1.0 LVID Diastole (2D) 5.3 cm 3.8-5.2 LVIW Diastolic Thickness (2D) 1.0 cm 0.6-0.9 LVID Systole (2D) 4.0 cm 2.2-3.5 LVOT Diameter 2.1 cm LV Mass (2D Cubed) 217.20 g 67.00-162.00 LV Mass Index (2D Cubed) 116 g/m2 43-95 Relative Wall Thickness (2D) 0.38 <=0.42 LV Fractional Shortening/Ejection Fraction 2D/MM LV Fractional Shortening (2D) 24 % 27-45 LV EF (2D Teichholz) 48 % LV Diastolic Volume (4C MOD) 108 ml LV EF (4C MOD) 45 % LV Diastolic Volume (2C MOD) 152 ml LV EF (2C MOD) 38 % LV Diastolic Volume (BP MOD) 136 ml 46-106 LV Diastolic Volume Index (BP MOD) 72 ml/m2 29-61 LV Systolic Volume (BP MOD) 76 ml 14-42 LV Systolic Volume Index (BP MOD) 40 ml/m2 8-24 LV EF (BP MOD) 44 % 54-74 LV Diastolic Length (4C) 7.1 cm LV Systolic Length (4C) 6.8 cm LV Stroke Volume (4C MOD) 48 ml Atria Name Value Normal LA Dimensions LA Volume (4C A-L) 69 ml LA Volume (BP A-L) 62 ml RA Dimensions RA Systolic Major Una Length (4C) 4.8 cm 2.2-2.8 RA Area (4C) 17.0 cm2 <=18.0 Report Signatures
[2025-10-04 04:13] LABS: Hematocrit 42.3 % (37.0-47.0); Hemoglobin 13.7 g/dL (12.0-15.0); Immature Granulocyte Percent A 1.4 % (0-0.5); Lymphocytes Absolute Auto 2.94 K/mm3 (0.9-3.2); Mean Corpuscular HGB Conc 32.4 g/dl (32-36); Mean Corpuscular Hemoglobin 30.9 pg (26-34); Mean Corpuscular Volume 95.5 fl (80-100); Nucleated Red Blood Cells Absolute Auto 0.000 K/mm3 (0.0-0.012); Nucleated Red Blood Cells Perc 0.0 % (0.0-0.2); Platelet Count Result 381 k/mm3 (150-375); Red Blood Count 4.43 M/mm3 (4.2-5.4); White Blood Count 10.9 K/mm3 (4.5-10.0)
[2025-10-04 04:24] LABS: Partial Thromboplastin Time 41.3 Seconds (22.3-36.8)
[2025-10-04 04:30] LABS: Anion Gap 5 mmol/L (4-12); Blood Urea Nitrogen 13 mg/dL (7-17); Calcium 8.7 mg/dL (8.4-10.2); Carbon Dioxide 28 mmol/L (22-30); Chloride 104 mmol/L (98-107); Estimated Glomerular Filt Rate > 60; Glucose 102 mg/dL (65-110); Potassium 3.6 mmol/L (3.4-5.0); Sodium 137 mmol/L (137-145)
--- NOTE | 2025-10-04 08:04 | P.PNCA_ITS ---
Progress Note: A&P Assessment and Plan (1) Chest pain: Code(s): R07.9 - Chest pain, unspecified Status: Acute Assessment and Plan: Troponin peaked at 2.20. NSTEMI. Obtain echo. On heparin drip, aspirin, Atorvastatin, Coreg. Discuss risks/benefits/alternative to LH and she is agreeble to it. Consulted [facility] for it. Keep NPO. (2) Elevated troponin: Code(s): R79.89 - Other specified abnormal findings of blood chemistry Status: Inactive (3) Tobacco dependence: Code(s): F17.200 - Nicotine dependence, unspecified, uncomplicated Status: Acute Assessment and Plan: Counseled regarding smoking cessation. (4) Hypertension: Qualifiers: Hypertension type: primary hypertension Qualified Code(s): I10 - Essential (primary) hypertension Code(s): I10 - Essential (primary) hypertension Status: Chronic Assessment and Plan: Stable. (5) Dyslipidemia: Code(s): E78.5 - Hyperlipidemia, unspecified Status: Chronic Assessment and Plan: On Atorvastatin. Subjective Date/time seen: 10/04/25 08:04 Interval history: She has mild persistent chest pain. No sob. Exam Const: General: cooperative, healthy appearing, comfortable and obese Nutritional Appearance: obese Orientation/consciousness: oriented to person, oriented to place and oriented to time Resp: Auscultation: clear to auscultation bilaterally, no crackles, no rales, no rhonchi and no wheezes Cardio: Rate: regular rate Rhythm: regular rhythm Heart sounds: no murmurs Peripheral pulses: dorsalis pedis present Neuro: General: oriented to person, oriented to place and oriented to time Extrem: Right lower extremity: no edema Left lower extremity: no edema Objective Data Vital Signs Vital Signs: Vital Signs - 24 hr 10/03/25 13:02 10/03/25 14:00 10/03/25 14:02 Temperature 97.5 F L Pulse Rate 83 84 Respiratory Rate 16 18 Blood Pressure 152/92 H 138/88 Pulse Oximetry 98 98 98 Oxygen Delivery Room Air 10/03/25 14:02 10/03/25 14:04 10/03/25 17:05 Temperature Pulse Rate 84 84 81 Respiratory Rate 14 17 Blood Pressure 138/88 129/79 Pulse Oximetry 98 100 Oxygen Delivery Room Air 10/03/25 17:21 10/03/25 17:27 10/03/25 18:00 Temperature 98.3 F Pulse Rate 76 84 88 Respiratory Rate 17 12 Blood Pressure 126/81 141/95 H Pulse Oximetry 100 97 Oxygen Delivery 10/03/25 20:00 10/03/25 20:00 10/03/25 20:00 Temperature 98.0 F Pulse Rate 88 90 Respiratory Rate 14 Blood Pressure 143/87 H Pulse Oximetry 96 Oxygen Delivery Room Air 10/03/25 22:00 10/03/25 23:58 10/04/25 00:00 Temperature 98.4 F Pulse Rate 98 86 Respiratory Rate 14 Blood Pressure 126/76 Pulse Oximetry 92 Oxygen Delivery Room Air 10/04/25 00:00 10/04/25 00:17 10/04/25 02:00 Temperature Pulse Rate 91 92 80 Respiratory Rate Blood Pressure Pulse Oximetry Oxygen Delivery 10/04/25 04:00 10/04/25 04:00 10/04/25 04:00 Temperature 98.7 F Pulse Rate 80 76 Respiratory Rate 16 Blood Pressure 129/76 Pulse Oximetry 97 Oxygen Delivery Room Air 10/04/25 06:00 10/04/25 07:52 Temperature 97.6 F Pulse Rate 82 84 Respiratory Rate 16 Blood Pressure 139/97 H Pulse Oximetry 94 Oxygen Delivery Intake/Output Intake/Output: Intake & Output 10/01/25 10/02/25 10/03/25 10/04/25 23:59 23:59 23:59 23:59 Intake Total 285.6 515.5 Balance 285.6 515.5 Meds/Results Medications: Active Medications Generic Name Dose Route Start Last Admin Trade Name Freq PRN Reason Stop Dose Admin Albuterol 2 puff 10/03/25 21:09 Albuterol Sulfate (*Sp) Aerosol 1 Puff INHALATION Q4H PRN Shortness Of Breath Or Wheezing Aspirin 81 mg 10/04/25 09:00 Aspirin 81 Mg Enteric Tablet PO QAM [facility] Atorvastatin Calcium 40 mg 10/04/25 09:00 Atorvastatin 40 Mg Tablet PO DAILY [facility] Carvedilol 3.125 mg 10/03/25 21:10 10/04/25 00:17 Carvedilol 3.125 Mg Tablet PO 3.125 mg Q12HR DAVIDA Administration Clopidogrel Bisulfate 75 mg 10/04/25 09:00 Clopidogrel Bisulfate 75 Mg Tablet PO DAILY [facility] Empagliflozin 10 mg 10/04/25 09:00 Empagliflozin 10 Mg Tablet PO DAILY [facility] Ergocalciferol 1,250 mcg 10/21/25 09:00 Ergocalciferol (Vitamin D2) 1,250 Mcg (50,000 Units) Capsule PO MONTHLY [facility] Fluoxetine HCl 60 mg 10/04/25 09:00 Fluoxetine Hcl 20 Mg Capsule PO DAILY [facility] Folic Acid 1 mg 10/04/25 09:00 Folic Acid 1 Mg Tablet PO DAILY [facility] Furosemide 20 mg 10/04/25 09:00 Furosemide 20 Mg Tablet PO DAILY [facility] Heparin Sodium (Porcine) 4,000 units 10/03/25 14:08 10/04/25 04:35 Heparin Sodium 5,000 Units/Ml Vial IV PUSH 4,000 units PRN PRN Administration aPTT less than 55 seconds Heparin Sodium (Porcine) 2,500 units 10/03/25 14:08 Heparin Sodium 5,000 Units/Ml Vial IV PUSH PRN PRN aPTT 55 - 70 seconds Hydroxyzine HCl 25 mg 10/04/25 09:00 Hydroxyzine Hcl 25 Mg Tablet PO BID [facility] Heparin Sodium/Dextrose 25,000 units in 250 mls @ 11 mls/hr 10/03/25 14:10 10/04/25 04:36 Heparin Sodium/D5w 100 Units/Ml IV CONT 1,100 units/hr .[id number] DAVIDA 11 mls/hr Protocol Titration 1,100 UNITS/HR Losartan Potassium 25 mg 10/04/25 09:00 Losartan Potassium 25 Mg Tablet PO DAILY [facility] Nitroglycerin 0.4 mg 10/03/25 17:22 Nitroglycerin Sl 0.4 Mg Tablet SUBLINGUAL Q5MIN PRN Chest Pain Perflutren Lipid Microsphere 0 ml 10/03/25 16:12 Perflutren Lipid Microspheres 1.5 Ml Vial Diluted To 10 Ml Total Volume IV PUSH 10/06/25 16:12 ONCE PRN adequate visualization Protocol Radiology Results: ITS Impressions Chest X-Ray 10/03/25 13:29 IMPRESSION: Cardiomegaly and mild pulmonary vascular congestion. Chest CTA 10/03/25 15:35 IMPRESSION: 1. No pulmonary emboli. 2. Other than minimal atelectatic changes, no gross acute intrathoracic process. 3. Other findings as above. Labs Labs: Laboratory Results - last 24 hr 10/03/25 10/03/25 10/03/25 12:59 15:03 16:03 WBC 12.5 H RBC 4.40 Hgb 13.7 Hct 42.5 MCV 96.6 MCH 31.1 MCHC 32.2 RDW 14.7 H Plt Count 391 H MPV 9.6 Immature Gran % (Auto) 1.1 H Neut % (Auto) 63.5 Lymph % (Auto) 25.4 [place] % (Auto) 6.6 Eos % (Auto) 2.9 Baso % (Auto) 0.5 Lymph # (Auto) 3.17 [place] # (Auto) 0.8 H Eos # (Auto) 0.4 H Baso # (Auto) 0.1 Abs Immat Gran (auto) 0.14 H Absolute Neuts (auto) 7.9 H Absolute Nucleated RBC 0.000 Nucleated RBC % 0.0 PT 12.2 INR 0.9 APTT 29.4 Sodium 138 Potassium 3.9 Chloride 104 Carbon Dioxide 29 Anion Gap 5 BUN 13 Creatinine 0.86 Estim Creat Clear Calc Not Reportable Estimated GFR > 60 Glucose 113 H Calcium 8.7 Total Bilirubin 0.3 AST 35 ALT 45 H Alkaline Phosphatase 132 H Troponin I 2.060 H* 2.200 H* Total Protein 7.6 Albumin 3.8 Triglycerides Cholesterol LDL Cholesterol Direct HDL Direct Lipase 100 POC Urine HCG, Qual Negative 10/03/25 10/04/25 19:45 03:36 WBC 10.9 H RBC 4.43 Hgb 13.7 Hct 42.3 MCV 95.5 MCH 30.9 MCHC 32.4 RDW 14.7 H Plt Count 381 H MPV 10.2 Immature Gran % (Auto) 1.4 H Neut % (Auto) 61.3 Lymph % (Auto) 26.9 [place] % (Auto) 6.8 Eos % (Auto) 2.7 Baso % (Auto) 0.9 Lymph # (Auto) 2.94 [place] # (Auto) 0.7 H Eos # (Auto) 0.3 Baso # (Auto) 0.1 Abs Immat Gran (auto) 0.15 H Absolute Neuts (auto) 6.7 Absolute Nucleated RBC 0.000 Nucleated RBC % 0.0 PT INR APTT 33.3 41.3 H Sodium 137 Potassium 3.6 Chloride 104 Carbon Dioxide 28 Anion Gap 5 BUN 13 Creatinine 0.77 Estim Creat Clear Calc Not Reportable Estimated GFR > 60 Glucose 102 Calcium 8.7 Total Bilirubin AST ALT Alkaline Phosphatase Troponin I 2.190 H* Total Protein Albumin Triglycerides 229 H Cholesterol 210 H LDL Cholesterol Direct 124 HDL Direct 37 Lipase POC Urine HCG, Qual
--- NOTE | 2025-10-04 09:27 | P.CONCA_ITS ---
Assessment and Plan Assessment and plan (1) Troponin I above reference range: Code(s): R79.89 - Other specified abnormal findings of blood chemistry Status: Acute Plan 40-year-old woman with a episode of chest pain associated with elevated but flat troponin level. She is known to have some left ventricular systolic dysfunction and her electrocardiograms are suggestive of previous anterior infarction. In the face of all is it is interesting that a CT angiogram done at [facility] last year was unremarkable. Given her symptoms and elevated troponin coronary angiography has been requested which is reasonable. I will contact my interventional colleagues to see if I can arrange for this to occur today. Macho Almanzar MD [facility] History of Present Illness History of Present Illness Consult date/time: 10/04/25 09:27 Reason For Visit: NSTEMI/Elevated Troponin Narrative: this is a 40-year-old woman were seeing today at the request of Dr. Perdomo to arrange for coronary angiography. The patient is unknown to us prior to this consultation. She sees Dr. Perdomo because of a history of left ventricular systolic dysfunction noted on echo. He has her on medical therapy for this and she has had some epi episodes of decompensated heart failure as well. It looks like her evaluation consisted of a echocardiogram, EKGs as well as a coronary CTA that was done last year at [facility]. It is interesting that she has left ventricular systolic dysfunction by echo, her electrocardiograms are suggestive of previous anterior infarction but her coronary CTA at [facility] was apparently normal. She entered the hospital yesterday from home reporting that she was having some central dull substernal chest pain. Her electrocardiograms are as stated above but do not show any evidence of acute injury or ischemia. Her troponin levels are out of normal range at just over 2.0 and are flat. She was seen during this hospitalization by Dr. Malhotra in because of the symptoms and the elevated troponin levels coronary angiography has been requested. I explained the procedure in detail to the patient as well as the risks. I also explained to her that I would need to contact 1 of my a invasive/interventional colleagues to come over here for the procedure. I will try to make those arrangements. Review of Systems 2 Constitutional: Constitutional: Reports no additional constitutional complaints ENT: Reports system reviewed and no additional complaints, except as documented Cardiovascular: Cardiovascular: Reports as per HPI and Reports chest pain Respiratory: Respiratory: Reports dyspnea on exertion Gastrointestinal: Gastrointestinal: Reports no additional gastrointestinal complaints Musculoskeletal: Musculoskeletal: Reports no additional musculoskeletal complaints Integumentary/Breasts: Skin/Breast: Reports system reviewed and no additional complaints, except as docu Neurologic: Reports system reviewed and no additional complaints, except as documented Endocrine: Endocrine: Reports no additional endocrine complaints Hematologic/Lymphatic: Hematologic/Lymphatic: Reports no additional hematologic/lymphatic complaints Allergic/Immunologic: Allergic/Immunologic: Reports no additional allergic/immunologic complaints [facility] Past Medical History Medical History (Updated 10/04/25 @ 09:36 by Macho Almanzar MD) Tobacco dependence Hypertension Dyslipidemia Systolic dysfunction Depression Anxiety Myocardial infarction (~01/2024) CVA (cerebral vascular accident) Sleep apnea CAD (coronary artery disease) Surgical History Surgical History History of section History of cholecystectomy History of cardiac catheterization Family History Family History (Updated 10/03/25 @ 17:53 by Chely Vargas, RN) Father Diabetes mellitus Mother Diabetes mellitus Mother Breast cancer Bone cancer Father Myocardial infarction Social History Social History Smoking packs per day: 0.5 Smoking cigarettes per day: 10.0 Years smoked: 22 Smoking pack-years: 11.00 Smoking status: Heavy tobacco smoker Tobacco type: cigarettes Second hand tobacco smoke exposure: Yes Alcohol intake: never Substance use: never Substance use type: does not use Other substance usage details: gummies rarely Do You Feel Safe in your Home?: Yes Lack of Transportation: No Lack of Food: Never True Current Housing: I Have Housing Concerned About Future Housing: No Difficulty Paying Gas/Electric Bills: No Difficulty Paying for Meds: No Currently Unemployed: No Education: High School Diploma/GED Difficulty w/ Childcare or Family Care: No Spiritual care concerns: No Meds Home Medications and Allergies Home Medications ?Medication ?Instructions ?Recorded ?Confirmed ?Type empagliflozin 10 mg tablet See Rx Instructions .Route 11/28/24 10/03/25 Rx (Jardiance) .COMPLEX #30 tabs atorvastatin 40 mg tablet 40 mg PO DAILY #30 tabs 02/02/1210/03/25 Rx furosemide 20 mg tablet See Rx Instructions .Route 0 01/16/25 10/03/25 Rx .COMPLEX #90 tabs losartan 25 mg tablet See Rx Instructions .Route 0 01/16/25 10/03/25 Rx .COMPLEX #90 tabs carvedilol 3.125 mg tablet See Rx Instructions .Route 04/09/25 10/03/25 Rx .COMPLEX #180 tabs albuterol sulfate 90 mcg/actuation 1 puff inhalation Q 4H PRN 06/26/25 10/03/25 History aerosol inhaler (Ventolin HFA) shortness of breath or wheezing fluoxetine 60 mg tablet 60 mg PO DAILY 06/26/2509/21 History folic acid 1 mg tablet 1 mg PO DAILY 06/26/2510/03 History hydroxyzine HCl 25 mg tablet 25 mg PO BID 06/26/25 History aspirin 81 mg tablet,delayed See Rx Instructions .Rout e 08/12/25 10/03/25 Rx release .COMPLEX #30 tabs clopidogrel 75 mg tablet See Rx Instructions .Route 1 10/03/25 Rx .COMPLEX #30 tabs ergocalciferol (vitamin D2) 1,250 1,250 mcg PO MONTHLY 10/03/25 10/03/25 History mcg (50,000 unit) capsule Allergies Allergy/AdvReac Type Severity Reaction Status Date / Time No Known Allergies Allergy Mild Verified 10/03/25 17:45 Vital Signs Vital Signs - 24 hr 10/03/25 13:02 10/03/25 14:00 10/03/25 14:02 Temperature 36.4 C L Pulse Rate 83 84 Respiratory Rate 16 18 Blood Pressure 152/92 H 138/88 Pulse Oximetry 98 98 98 Oxygen Delivery Room Air 10/03/25 14:02 10/03/25 14:04 10/03/25 17:05 Temperature Pulse Rate 84 84 81 Respiratory Rate 14 17 Blood Pressure 138/88 129/79 Pulse Oximetry 98 100 Oxygen Delivery Room Air 10/03/25 17:21 10/03/25 17:27 10/03/25 18:00 Temperature 36.8 C Pulse Rate 76 84 88 Respiratory Rate 17 12 Blood Pressure 126/81 141/95 H Pulse Oximetry 100 97 Oxygen Delivery 10/03/25 20:00 10/03/25 20:00 10/03/25 20:00 Temperature 36.7 C Pulse Rate 88 90 Respiratory Rate 14 Blood Pressure 143/87 H Pulse Oximetry 96 Oxygen Delivery Room Air 10/03/25 22:00 10/03/25 23:58 10/04/25 00:00 Temperature 36.9 C Pulse Rate 98 86 Respiratory Rate 14 Blood Pressure 126/76 Pulse Oximetry 92 Oxygen Delivery Room Air 10/04/25 00:00 10/04/25 00:17 10/04/25 02:00 Temperature Pulse Rate 91 92 80 Respiratory Rate Blood Pressure Pulse Oximetry Oxygen Delivery 10/04/25 04:00 10/04/25 04:00 10/04/25 04:00 Temperature 37.1 C Pulse Rate 80 76 Respiratory Rate 16 Blood Pressure 129/76 Pulse Oximetry 97 Oxygen Delivery Room Air 10/04/25 06:00 10/04/25 07:52 Temperature 36.4 C Pulse Rate 82 84 Respiratory Rate 16 Blood Pressure 139/97 H Pulse Oximetry 94 Oxygen Delivery Exam 2 Const: General: comfortable and no acute distress Other: Morbidly obese woman appearing older than her stated age supine in bed in no distress HENMT: Mouth: Yes moist mucous membranes Eyes: Sclera: sclerae normal Neck: Neck: supple and no JVD Resp: Effort & Inspection: normal respiratory effort Auscultation: clear to auscultation bilaterally Cardio: Rate: regular rate Rhythm: regular rhythm Other: PMI not palpable because of her size GI: GI Palp: Yes Soft to palpation Auscultation: normal bowel sounds O ther: markedly obese : External Female Exam: normal external appearance Skin: General skin exam: normal color Neuro: Other: alert and oriented x3 Extrem: Other: adequate perfusion Results Labs and Meds 10/04/25 03:36 10/04/25 03:36 Lab results: Cardiac Enzymes 10/03/25 10/03/25 10/03/25 Range/Units 12:59 16:03 19:45 AST 35 (14-36) U/L Troponin I 2.060 H* 2.200 H* 2.190 H* (0.000-0.034) ng/mL Coagulation 10/03/25 10/03/25 10/04/25 Range/Units 12:59 19:45 03:36 PT 12.2 (11.1-14.7) Seconds APTT 29.4 33.3 41.3 H (22.3-36.8) Seconds Lipids 10/03/25 Range/Units 19:45 Triglycerides 229 H (<150) mg/dL Cholesterol 210 H (0-200) mg/dL CBC 10/03/25 10/04/25 Range/Units 12:59 03:36 WBC 12.5 H 10.9 H (4.5-10.0) K/mm3 RBC 4.40 4.43 (4.2-5.4) M/mm3 Hgb 13.7 13.7 (12.0-15.0) g/dL Hct 42.5 42.3 (37.0-47.0) % Plt Count 391 H 381 H (150-375) k/mm3 Lymph # (Auto) 3.17 2.94 (0.9-3.2) K/mm3 [place] # (Auto) 0.8 H 0.7 H (0.1-0.6) K/mm3 Eos # (Auto) 0.4 H 0.3 (0-0.3) K/mm3 Baso # (Auto) 0.1 0.1 (0.0-0.1) K/mm3 Comprehensive Metabolic Panel 10/03/25 10/04/25 Range/Units 12:59 03:36 Sodium 138 137 (137-145) mmol/L Potassium 3.9 3.6 (3.4-5.0) mmol/L Chloride 104 104 (98-107) mmol/L Carbon Dioxide 29 28 (22-30) mmol/L BUN 13 13 (7-17) mg/dL Creatinine 0.86 0.77 (0.7-1.0) mg/dL Glucose 113 H 102 (65-110) mg/dL Calcium 8.7 8.7 (8.4-10.2) mg/dL AST 35 (14-36) U/L ALT 45 H (6-35) U/L Alkaline Phosphatase 132 H (38-126) U/L Total Protein 7.6 (6.3-8.2) g/dL Albumin 3.8 (3.5-5.1) g/dL Intake and Output 10/03/25 10/04/25 10/04/25 23:59 07:59 15:59 Intake Total 285.6 515.5 Balance 285.6 515.5 Intake: IV 45.6 65.5 Heparin Sod/D5w 100 Units/ml 25 45.6 65.5 ,000 units In 250 ml @ 1,100 UNITS/HR 11 mls/hr IV CONT . [id number] [facility] Rx#:[id number] Oral 240 450 Other: # Unmeasured Voids 4 Patient Weight 10/04/25 23:59 Weight 125 kg
[2025-10-04] MEDS: FOLIC ACID 1 MG TABLET PO (09:36)
[2025-10-04] MEDS: ATORVASTATIN 40 MG TABLET PO (09:36)
[2025-10-04] MEDS: ASPIRIN 81 MG ENTERIC TABLET PO (09:37)
[2025-10-04] MEDS: CLOPIDOGREL BISULFATE 75 MG TABLET PO (09:37)
[2025-10-04] MEDS: LOSARTAN POTASSIUM 25 MG TABLET PO (09:37)
[2025-10-04] MEDS: EMPAGLIFLOZIN 10 MG TABLET PO (09:37)
[2025-10-04] MEDS: PERFLUTREN LIPID MICROSPHERES 1.5 ML VIAL DILUTED TO 10 ML TOTAL VOLUME IV PUSH (10:55)
--- NOTE | 2025-10-04 10:55 | IVDEFINITY ---
Prior to administration of IV Definity the patient was educated on the risks and benefits of the imaging enhancing agent including potential adverse side effects. The patient verbalized understanding. Allergies were verified. No exclusion criteria were identified and at least one of the following inclusion criteria were met: 1) physician request, 2) patient technically difficult to image (per the [place] [employer] guidelines of two or more segments not discernable within the apical view), or 3) questionable left ventricular function. ?
--- NOTE | 2025-10-04 11:09 | PM.IMPN ---
Progress Note: A&P Assessment and Plan (1) NSTEMI (non-ST elevated myocardial infarction): Code(s): I21.4 - Non-ST elevation (NSTEMI) myocardial infarction Status: Acute Plan NSTEMI -patient with known history of coronary disease presents with chest pain with elevated troponin of 2.2 -on heparin drip for ACS -on aspirin/Plavix statin beta-edilberto, Jardiance, arb -echocardiogram 10/04: pending -appreciate cardiology consultation: Recommendation heart catheterization Chronic conditions -morbid obesity: BMI 55.7 Patient will need weight loss plan -hyperlipidemia: Aspirin, statin, beta-edilberto -depression: Prozac -supplements: Ergocalciferol, folic acid -essential hypertension: Losartan, Coreg -obstructive sleep apnea: May use home CPAP Diet: Heart healthy diet, NPO midnight for heart catheterization tomorrow DVT prophylaxis: Ambulatory Code status: Full code Disposition: Due to staffing issues were having had difficulty getting heart catheterization completed today, discharge is pending heart catheterization Time Spent With Patient Time: 35 minutes Subjective Date/time seen: 10/04/25 11:09 Interval history: Patient seen and examined. Patient admitted with chest pain with elevated to 2.20 but flat troponins. With ongoing chest pain recommendation will cardiology is for heart catheterization. Echocardiogram ordered. Patient endorses chest pain but denies fever, chills, nausea vomiting, diarrhea. We are trying to arrange for heart catheterization today, having difficulty with staffing issues. Review of Systems Review of Systems: 10 point ROS complete, negative other than what is specified in HPI. Exam Narrative: - GENERAL: Pleasant morbidly obese woman in No acute distress. - EYES: EOMI. Anicteric. - HENT: Moist mucous membranes. - LUNGS: Clear to auscultation bilaterally, no wheezing, rhonchi, or rales. - CARDIOVASCULAR: Regular rate and rhythm. No murmur. No JVD. - ABDOMEN: Soft, non-tender and non-distended. No palpable masses. - EXTREMITIES: No edema. Peripheral pulses 2+. Non-tender. - NEUROLOGIC: No focal neurological deficits. CN II-XII grossly intact. - PSYCHIATRIC: Awake, Alert and oriented x 3. Appropriate mood and affect. - SKIN: No rashes or lesions. Warm. - LYMPH: No cervical lymphadenopathy. Objective Data Vital Signs Vital Signs: Vital Signs - 24 hr 10/03/25 13:02 10/03/25 14:00 10/03/25 14:02 Temperature 36.4 C L Pulse Rate 83 84 Respiratory Rate 16 18 Blood Pressure 152/92 H 138/88 Pulse Oximetry 98 98 98 Oxygen Delivery Room Air 10/03/25 14:02 10/03/25 14:04 10/03/25 17:05 Temperature Pulse Rate 84 84 81 Respiratory Rate 14 17 Blood Pressure 138/88 129/79 Pulse Oximetry 98 100 Oxygen Delivery Room Air 10/03/25 17:21 10/03/25 17:27 10/03/25 18:00 Temperature 36.8 C Pulse Rate 76 84 88 Respiratory Rate 17 12 Blood Pressure 126/81 141/95 H Pulse Oximetry 100 97 Oxygen Delivery 10/03/25 20:00 10/03/25 20:00 10/03/25 20:00 Temperature 36.7 C Pulse Rate 88 90 Respiratory Rate 14 Blood Pressure 143/87 H Pulse Oximetry 96 Oxygen Delivery Room Air 10/03/25 22:00 10/03/25 23:58 10/04/25 00:00 Temperature 36.9 C Pulse Rate 98 86 Respiratory Rate 14 Blood Pressure 126/76 Pulse Oximetry 92 Oxygen Delivery Room Air 10/04/25 00:00 10/04/25 00:17 10/04/25 02:00 Temperature Pulse Rate 91 92 80 Respiratory Rate Blood Pressure Pulse Oximetry Oxygen Delivery 10/04/25 04:00 10/04/25 04:00 10/04/25 04:00 Temperature 37.1 C Pulse Rate 80 76 Respiratory Rate 16 Blood Pressure 129/76 Pulse Oximetry 97 Oxygen Delivery Room Air 10/04/25 06:00 10/04/25 07:52 10/04/25 08:00 Temperature 36.4 C Pulse Rate 82 84 78 Respiratory Rate 16 16 Blood Pressure 139/97 H Pulse Oximetry 94 94 Oxygen Delivery Room Air 10/04/25 08:00 10/04/25 09:37 10/04/25 10:00 Temperature Pulse Rate 78 85 86 Respiratory Rate Blood Pressure Pulse Oximetry Oxygen Delivery Intake/Output Intake/Output: Intake & Output 10/01/25 10/02/25 10/03/25 10/04/25 23:59 23:59 23:59 23:59 Intake Total 285.6 515.5 Balance 285.6 515.5 Meds/Results Medications: Active Medications Generic Name Dose Route Start Last Admin Trade Name Freq PRN Reason Stop Dose Admin Albuterol 2 puff 10/03/25 21:09 Albuterol Sulfate (*Sp) Aerosol 1 Puff INHALATION Q4H PRN Shortness Of Breath Or Wheezing Aspirin 81 mg 10/04/25 09:00 10/04/25 09:37 Aspirin 81 Mg Enteric Tablet PO 81 mg QAM DAVIDA Administration Atorvastatin Calcium 40 mg 10/04/25 09:00 10/04/25 09:36 Atorvastatin 40 Mg Tablet PO 40 mg DAILY DAVIDA Administration Carvedilol 3.125 mg 10/03/25 21:10 10/04/25 09:37 Carvedilol 3.125 Mg Tablet PO 3.125 mg Q12HR DAVIDA Administration Clopidogrel Bisulfate 75 mg 10/04/25 09:00 10/04/25 09:37 Clopidogrel Bisulfate 75 Mg Tablet PO 75 mg DAILY DAVIDA Administration Empagliflozin 10 mg 10/04/25 09:00 10/04/25 09:37 Empagliflozin 10 Mg Tablet PO 10 mg DAILY [facility] Administration Ergocalciferol 1,250 mcg 10/21/25 09:00 Ergocalciferol (Vitamin D2) 1,250 Mcg (50,000 Units) Capsule PO MONTHLY [facility] Fluoxetine HCl 60 mg 10/04/25 09:00 10/04/25 09:36 Fluoxetine Hcl 20 Mg Capsule PO 60 mg DAILY [facility] Administration Folic Acid 1 mg 10/04/25 09:00 10/04/25 09:36 Folic Acid 1 Mg Tablet PO 1 mg DAILY [facility] Administration Furosemide 20 mg 10/04/25 09:00 10/04/25 09:38 Furosemide 20 Mg Tablet PO Not Given DAILY [facility] Heparin Sodium (Porcine) 4,000 units 10/03/25 14:08 10/04/25 04:35 Heparin Sodium 5,000 Units/Ml Vial IV PUSH 4,000 units PRN PRN Administration aPTT less than 55 seconds Heparin Sodium (Porcine) 2,500 units 10/03/25 14:08 Heparin Sodium 5,000 Units/Ml Vial IV PUSH PRN PRN aPTT 55 - 70 seconds Hydroxyzine HCl 25 mg 10/04/25 09:00 10/04/25 09:37 Hydroxyzine Hcl 25 Mg Tablet PO 25 mg BID DAVIDA Administration Heparin Sodium/Dextrose 25,000 units in 250 mls @ 11 mls/hr 10/03/25 14:10 10/04/25 04:36 Heparin Sodium/D5w 100 Units/Ml IV CONT 1,100 units/hr .[id number] DAVIDA 11 mls/hr Protocol Titration 1,100 UNITS/HR Losartan Potassium 25 mg 10/04/25 09:00 10/04/25 09:37 Losartan Potassium 25 Mg Tablet PO 25 mg DAILY DAVIDA Administration Nitroglycerin 0.4 mg 10/03/25 17:22 Nitroglycerin Sl 0.4 Mg Tablet SUBLINGUAL Q5MIN PRN Chest Pain Radiology Results: ITS Impressions Chest X-Ray 10/03/25 13:29 IMPRESSION: Cardiomegaly and mild pulmonary vascular congestion. Chest CTA 10/03/25 15:35 IMPRESSION: 1. No pulmonary emboli. 2. Other than minimal atelectatic changes, no gross acute intrathoracic process. 3. Other findings as above. Labs Labs: Laboratory Results - last 24 hr 10/03/25 10/03/25 10/03/25 12:59 15:03 16:03 WBC 12.5 H RBC 4.40 Hgb 13.7 Hct 42.5 MCV 96.6 MCH 31.1 MCHC 32.2 RDW 14.7 H Plt Count 391 H MPV 9.6 Immature Gran % (Auto) 1.1 H Neut % (Auto) 63.5 Lymph % (Auto) 25.4 [place] % (Auto) 6.6 Eos % (Auto) 2.9 Baso % (Auto) 0.5 Lymph # (Auto) 3.17 [place] # (Auto) 0.8 H Eos # (Auto) 0.4 H Baso # (Auto) 0.1 Abs Immat Gran (auto) 0.14 H Absolute Neuts (auto) 7.9 H Absolute Nucleated RBC 0.000 Nucleated RBC % 0.0 PT 12.2 INR 0.9 APTT 29.4 Sodium 138 Potassium 3.9 Chloride 104 Carbon Dioxide 29 Anion Gap 5 BUN 13 Creatinine 0.86 Estim Creat Clear Calc Not Reportable Estimated GFR > 60 Glucose 113 H Calcium 8.7 Total Bilirubin 0.3 AST 35 ALT 45 H Alkaline Phosphatase 132 H Troponin I 2.060 H* 2.200 H* Total Protein 7.6 Albumin 3.8 Triglycerides Cholesterol LDL Cholesterol Direct HDL Direct Lipase 100 POC Urine HCG, Qual Negative 10/03/25 10/04/25 19:45 03:36 WBC 10.9 H RBC 4.43 Hgb 13.7 Hct 42.3 MCV 95.5 MCH 30.9 MCHC 32.4 RDW 14.7 H Plt Count 381 H MPV 10.2 Immature Gran % (Auto) 1.4 H Neut % (Auto) 61.3 Lymph % (Auto) 26.9 [place] % (Auto) 6.8 Eos % (Auto) 2.7 Baso % (Auto) 0.9 Lymph # (Auto) 2.94 [place] # (Auto) 0.7 H Eos # (Auto) 0.3 Baso # (Auto) 0.1 Abs Immat Gran (auto) 0.15 H Absolute Neuts (auto) 6.7 Absolute Nucleated RBC 0.000 Nucleated RBC % 0.0 PT INR APTT 33.3 41.3 H Sodium 137 Potassium 3.6 Chloride 104 Carbon Dioxide 28 Anion Gap 5 BUN 13 Creatinine 0.77 Estim Creat Clear Calc Not Reportable Estimated GFR > 60 Glucose 102 Calcium 8.7 Total Bilirubin AST ALT Alkaline Phosphatase Troponin I 2.190 H* Total Protein Albumin Triglycerides 229 H Cholesterol 210 H LDL Cholesterol Direct 124 HDL Direct 37 Lipase POC Urine HCG, Qual
[2025-10-04 11:15] LABS: Partial Thromboplastin Time 49.5 Seconds (22.3-36.8)
--- NOTE | 2025-10-04 13:34 | WPDMODSED ---
Moderate Sedation Note-Pt Data Patient Data Diagnosis: nstemi Present Complaint: Chest pain Procedure to be performed/Plan: Coronary angiogram Allergies Allergy/AdvReac Type Severity Reaction Status Date / Time No Known Allergies Allergy Mild Verified 10/03/25 17:45 Home Medications ?Medication ?Instructions ?Recorded ?Confirmed ?Type empagliflozin 10 mg tablet See Rx Instructions .Route 11/28/24 10/03/25 Rx (Jardiance) .COMPLEX #30 tabs atorvastatin 40 mg tablet 40 mg PO DAILY #30 tabs 12/24/24 10/03/25 Rx furosemide 20 mg tablet See Rx Instructions .Route 01/16/25 10/03/25 Rx .COMPLEX #90 tabs losartan 25 mg tablet See Rx Instructions .Route 01/16/25 10/03/25 Rx .COMPLEX #90 tabs carvedilol 3.125 mg tablet See Rx Instructions .Route 04/09/25 10/03/25 Rx .COMPLEX #180 tabs albuterol sulfate 90 mcg/actuation 1 puff inhalation Q4H PRN 06/26/25 10/03/25 History aerosol inhaler (Ventolin HFA) shortness of breath or wheezing fluoxetine 60 mg tablet 60 mg PO DAILY 06/26/25 10/03/25 History folic acid 1 mg tablet 1 mg PO DAILY 06/26/25 10/03/25 History hydroxyzine HCl 25 mg tablet 25 mg PO BID 06/26/25 10/03/25 History aspirin 81 mg tablet,delayed See Rx Instructions .Route 08/12/25 10/03/25 Rx release .COMPLEX #30 tabs clopidogrel 75 mg tablet See Rx Instructions .Route 09/16/25 10/03/25 Rx .COMPLEX #30 tabs ergocalciferol (vitamin D2) 1,250 1,250 mcg PO MONTHLY 10/03/25 10/03/25 History mcg (50,000 unit) capsule Current Medications: Active Medications Albuterol (Albuterol Sulfate (*Sp) Aerosol 1 Puff) 2 puff INHALATION Q4H PRN PRN Reason: Shortness Of Breath Or Wheezing Aspirin (Aspirin 81 Mg Enteric Tablet) 81 mg PO QAM [facility] Last Admin: 10/04/25 09:37 Dose: 81 mg Atorvastatin Calcium (Atorvastatin 40 Mg Tablet) 40 mg PO DAILY [facility] Last Admin: 10/04/25 09:36 Dose: 40 mg Carvedilol (Carvedilol 3.125 Mg Tablet) 3.125 mg PO Q12HR [facility] Last Admin: 10/04/25 09:37 Dose: 3.125 mg Clopidogrel Bisulfate (Clopidogrel Bisulfate 75 Mg Tablet) 75 mg PO DAILY [facility] Last Admin: 10/04/25 09:37 Dose: 75 mg Empagliflozin (Empagliflozin 10 Mg Tablet) 10 mg PO DAILY [facility] Last Admin: 10/04/25 09:37 Dose: 10 mg Ergocalciferol (Ergocalciferol (Vitamin D2) 1,250 Mcg (50,000 Units) Capsule) 1,250 mcg PO MONTHLY [facility] Fluoxetine HCl (Fluoxetine Hcl 20 Mg Capsule) 60 mg PO DAILY [facility] Last Admin: 10/04/25 09:36 Dose: 60 mg Folic Acid (Folic Acid 1 Mg Tablet) 1 mg PO DAILY [facility] Last Admin: 10/04/25 09:36 Dose: 1 mg Furosemide (Furosemide 20 Mg Tablet) 20 mg PO DAILY [facility] Last Admin: 10/04/25 09:38 Dose: Not Given Heparin Sodium (Porcine) (Heparin Sodium 5,000 Units/Ml Vial) 4,000 units IV PUSH PRN PRN PRN Reason: aPTT less than 55 seconds Last Admin: 10/04/25 11:53 Dose: 4,000 units Heparin Sodium (Porcine) (Heparin Sodium 5,000 Units/Ml Vial) 2,500 units IV PUSH PRN PRN PRN Reason: aPTT 55 - 70 seconds Hydroxyzine HCl (Hydroxyzine Hcl 25 Mg Tablet) 25 mg PO BID [facility] Last Admin: 10/04/25 09:37 Dose: 25 mg Heparin Sodium/Dextrose (Heparin Sodium/D5w 100 Units/Ml) 25,000 units in 250 mls @ 13 mls/hr IV CONT .[id number] [facility]; Protocol Last Titration: 10/04/25 11:51 Dose: 1,300 units/hr, 13 mls/hr Losartan Potassium (Losartan Potassium 25 Mg Tablet) 25 mg PO DAILY [facility] Last Admin: 10/04/25 09:37 Dose: 25 mg Nitroglycerin (Nitroglycerin Sl 0.4 Mg Tablet) 0.4 mg SUBLINGUAL Q5MIN PRN PRN Reason: Chest Pain Sedation/Anesthesia: No previous sedation/anesthesia problems (including family history). [facility] Past Medical History Medical History (Updated 10/04/25 @ 09:36 by Macho Almanzar MD) Tobacco dependence Hypertension Dyslipidemia Systolic dysfunction Depression Anxiety Myocardial infarction (~01/2024) CVA (cerebral vascular accident) Sleep apnea CAD (coronary artery disease) Surgical History Surgical History History of section History of cholecystectomy History of cardiac catheterization Family History Family History (Updated 10/03/25 @ 17:53 by Chely Vargas, RN) Father Diabetes mellitus Mother Diabetes mellitus Mother Breast cancer Bone cancer Father Myocardial infarction Social History Social History Smoking packs per day: 0.5 Smoking cigarettes per day: 10.0 Years smoked: 22 Smoking pack-years: 11.00 Smoking status: Heavy tobacco smoker Tobacco type: cigarettes Second hand tobacco smoke exposure: Yes Alcohol intake: never Substance use: never Substance use type: does not use Other substance usage details: gummies rarely Do You Feel Safe in your Home?: Yes Lack of Transportation: No Lack of Food: Never True Current Housing: I Have Housing Concerned About Future Housing: No Difficulty Paying Gas/Electric Bills: No Difficulty Paying for Meds: No Currently Unemployed: No Education: High School Diploma/GED Difficulty w/ Childcare or Family Care: No Spiritual care concerns: No Mod Sed Physical Exam Physical Exam Pre Procedural Exam: Normal: Appearance, Eyes, Ears, Nose, Neck, Throat, Airway, Lungs, Heart Size, Heart Rate, Heart Rhythm, Neuro Exam, Abdomen, Liver, Kidneys, Spleen, Breasts, Genitalia, Extremities and Skin Hours since solid foods: 8 Hours since liquid intake: 8 Mallampati Classification: class II Internal Medicine - PN: Obj Da Vital Signs Vital Signs: Vital Signs - 24 hr 10/03/25 14:00 10/03/25 14:02 10/03/25 14:02 Temperature Pulse Rate 84 84 Respiratory Rate 18 14 Blood Pressure 138/88 138/88 Pulse Oximetry 98 98 98 Oxygen Delivery Room Air Room Air 10/03/25 14:04 10/03/25 17:05 10/03/25 17:21 Temperature Pulse Rate 84 81 76 Respiratory Rate 17 17 Blood Pressure 129/79 126/81 Pulse Oximetry 100 100 Oxygen Delivery 10/03/25 17:27 10/03/25 18:00 10/03/25 20:00 Temperature 36.8 C 36.7 C Pulse Rate 84 88 88 Respiratory Rate 12 14 Blood Pressure 141/95 H 143/87 H Pulse Oximetry 97 96 Oxygen Delivery 10/03/25 20:00 10/03/25 20:00 10/03/25 22:00 Temperature Pulse Rate 90 98 Respiratory Rate Blood Pressure Pulse Oximetry Oxygen Delivery Room Air 10/03/25 23:58 10/04/25 00:00 10/04/25 00:00 Temperature 36.9 C Pulse Rate 86 91 Respiratory Rate 14 Blood Pressure 126/76 Pulse Oximetry 92 Oxygen Delivery Room Air 10/04/25 00:17 10/04/25 02:00 10/04/25 04:00 Temperature Pulse Rate 92 80 Respiratory Rate Blood Pressure Pulse Oximetry Oxygen Delivery Room Air 10/04/25 04:00 10/04/25 04:00 10/04/25 06:00 Temperature 37.1 C Pulse Rate 80 76 82 Respiratory Rate 16 Blood Pressure 129/76 Pulse Oximetry 97 Oxygen Delivery 10/04/25 07:52 10/04/25 08:00 10/04/25 08:00 Temperature 36.4 C Pulse Rate 84 78 78 Respiratory Rate 16 16 Blood Pressure 139/97 H Pulse Oximetry 94 94 Oxygen Delivery Room Air 10/04/25 09:37 10/04/25 10:00 10/04/25 11:28 Temperature 36.3 C L Pulse Rate 85 86 84 Respiratory Rate 17 Blood Pressure 134/78 Pulse Oximetry 98 Oxygen Delivery 10/04/25 11:58 10/04/25 11:58 Temperature Pulse Rate 74 74 Respiratory Rate 17 Blood Pressure Pulse Oximetry 98 Oxygen Delivery Room Air Intake/Output Intake/Output: Intake & Output 10/01/25 10/02/25 10/03/25 10/04/25 23:59 23:59 23:59 23:59 Intake Total 285.6 595.3 Balance 285.6 595.3 Meds/Results Medications: Active Medications Generic Name Dose Route Start Last Admin Trade Name Freq PRN Reason Stop Dose Admin Albuterol 2 puff 10/03/25 21:09 Albuterol Sulfate (*Sp) Aerosol 1 Puff INHALATION Q4H PRN Shortness Of Breath Or Wheezing Aspirin 81 mg 10/04/25 09:00 10/04/25 09:37 Aspirin 81 Mg Enteric Tablet PO 81 mg QAM DAVIDA Administration Atorvastatin Calcium 40 mg 10/04/25 09:00 10/04/25 09:36 Atorvastatin 40 Mg Tablet PO 40 mg DAILY DAVIDA Administration Carvedilol 3.125 mg 10/03/25 21:10 10/04/25 09:37 Carvedilol 3.125 Mg Tablet PO 3.125 mg Q12HR DAVIDA Administration Clopidogrel Bisulfate 75 mg 10/04/25 09:00 10/04/25 09:37 Clopidogrel Bisulfate 75 Mg Tablet PO 75 mg DAILY DAVIDA Administration Empagliflozin 10 mg 10/04/25 09:00 10/04/25 09:37 Empagliflozin 10 Mg Tablet PO 10 mg DAILY [facility] Administration Ergocalciferol 1,250 mcg 10/21/25 09:00 Ergocalciferol (Vitamin D2) 1,250 Mcg (50,000 Units) Capsule PO MONTHLY [facility] Fluoxetine HCl 60 mg 10/04/25 09:00 10/04/25 09:36 Fluoxetine Hcl 20 Mg Capsule PO 60 mg DAILY DAVIDA Administration Folic Acid 1 mg 10/04/25 09:00 10/04/25 09:36 Folic Acid 1 Mg Tablet PO 1 mg DAILY [facility] Administration Furosemide 20 mg 10/04/25 09:00 10/04/25 09:38 Furosemide 20 Mg Tablet PO Not Given DAILY [facility] Heparin Sodium (Porcine) 4,000 units 10/03/25 14:08 10/04/25 11:53 Heparin Sodium 5,000 Units/Ml Vial IV PUSH 4,000 units PRN PRN Administration aPTT less than 55 seconds Heparin Sodium (Porcine) 2,500 units 10/03/25 14:08 Heparin Sodium 5,000 Units/Ml Vial IV PUSH PRN PRN aPTT 55 - 70 seconds Hydroxyzine HCl 25 mg 10/04/25 09:00 10/04/25 09:37 Hydroxyzine Hcl 25 Mg Tablet PO 25 mg BID [facility] Administration Heparin Sodium/Dextrose 25,000 units in 250 mls @ 13 mls/hr 10/03/25 14:10 10/04/25 11:51 Heparin Sodium/D5w 100 Units/Ml IV CONT 1,300 units/hr .[id number] [facility] 13 mls/hr Protocol Titration 1,300 UNITS/HR Losartan Potassium 25 mg 10/04/25 09:00 10/04/25 09:37 Losartan Potassium 25 Mg Tablet PO 25 mg DAILY DAVIDA Administration Nitroglycerin 0.4 mg 10/03/25 17:22 Nitroglycerin Sl 0.4 Mg Tablet SUBLINGUAL Q5MIN PRN Chest Pain Radiology Results: ITS Impressions Chest X-Ray 10/03/25 13:29 IMPRESSION: Cardiomegaly and mild pulmonary vascular congestion. Chest CTA 10/03/25 15:35 IMPRESSION: 1. No pulmonary emboli. 2. Other than minimal atelectatic changes, no gross acute intrathoracic process. 3. Other findings as above. Labs 10/04/25 03:36 10/04/25 03:36 Labs: Laboratory Results - last 24 hr 10/03/25 10/03/25 10/03/25 12:59 15:03 16:03 WBC RBC Hgb Hct MCV MCH MCHC RDW Plt Count MPV Immature Gran % (Auto) Neut % (Auto) Lymph % (Auto) [place] % (Auto) Eos % (Auto) Baso % (Auto) Lymph # (Auto) [place] # (Auto) Eos # (Auto) Baso # (Auto) Abs Immat Gran (auto) Absolute Neuts (auto) Absolute Nucleated RBC Nucleated RBC % APTT Sodium 138 Potassium 3.9 Chloride 104 Carbon Dioxide 29 Anion Gap 5 BUN 13 Creatinine 0.86 Estim Creat Clear Calc Not Reportable Estimated GFR > 60 Glucose 113 H Calcium 8.7 Total Bilirubin 0.3 AST 35 ALT 45 H Alkaline Phosphatase 132 H Troponin I 2.060 H* 2.200 H* Total Protein 7.6 Albumin 3.8 Triglycerides Cholesterol LDL Cholesterol Direct HDL Direct Lipase 100 POC Urine HCG, Qual Negative 10/03/25 10/04/25 10/04/25 19:45 03:36 10:52 WBC 10.9 H RBC 4.43 Hgb 13.7 Hct 42.3 MCV 95.5 MCH 30.9 MCHC 32.4 RDW 14.7 H Plt Count 381 H MPV 10.2 Immature Gran % (Auto) 1.4 H Neut % (Auto) 61.3 Lymph % (Auto) 26.9 [place] % (Auto) 6.8 Eos % (Auto) 2.7 Baso % (Auto) 0.9 Lymph # (Auto) 2.94 [place] # (Auto) 0.7 H Eos # (Auto) 0.3 Baso # (Auto) 0.1 Abs Immat Gran (auto) 0.15 H Absolute Neuts (auto) 6.7 Absolute Nucleated RBC 0.000 Nucleated RBC % 0.0 APTT 33.3 41.3 H 49.5 H Sodium 137 Potassium 3.6 Chloride 104 Carbon Dioxide 28 Anion Gap 5 BUN 13 Creatinine 0.77 Estim Creat Clear Calc Not Reportable Estimated GFR > 60 Glucose 102 Calcium 8.7 Total Bilirubin AST ALT Alkaline Phosphatase Troponin I 2.190 H* Total Protein Albumin Triglycerides 229 H Cholesterol 210 H LDL Cholesterol Direct 124 HDL Direct 37 Lipase POC Urine HCG, Qual ASA Classification/Sedation ASA Classification/Sedation ASA Class: I Emergent: No Risks: Risks, benefits and alternatives explained and patient/family accepted plan for sedation. Patient re-evaluated immediately prior to sedation.
--- NOTE | 2025-10-04 13:36 | WPDHPUPDATE1 ---
History and Physical Update Update Date/Time: 10/04/25 13:36 History and Physical has been reviewed, including an updated exam of the patient. There are NO changes in the patient's condition. Risks, benefits, and alternatives have been discussed and questions answered. Patient agrees to proceed with procedure.
--- NOTE | 2025-10-04 13:36 | WPDCARDPROC ---
Cardiac Cath Procedure Note Date of procedure:: 10/04/25 Performing physician:: Keiko Guo MD Date of service 10/04/2025- Indication:: NSTEMI Brief clinical history:: 40-year-old female with morbid obesity, hypertension and prior stroke, hyperlipidemia and reported prior negative CTA of the thorax who follows with Dr. Malhotra and comes to the hospital because of chest pain. Troponins elevated. Therefore cardiac catheterization is being requested. Procedure Procedure performed:: 1-Moderate sedation that started at 1345 and ended at 2:05 p.m. a total duration 20 minutes using 2mg of Versed and 75mcg fentanyl. The registered nurse was tom cerrato 2-Selective left and right coronary angiogram. 3-Left heart catheterization with measurement of LVEDP and measurement of gradient across aortic valve. 4-Right common femoral arterial angiogram. 5-Deployment of 6 [place] Angio-Seal. Sedation/Medication given:: Moderate sedation. Access site:: Right common femoral artery. Estimated blood loss:: 10cc Procedure note:: After informed consent patient was brought in to manager labor relations with the was draped and prepped in usual manner. Moderate sedation was given and the right groin was infiltrated using 1% lidocaine. Five [place] sheath was obtained using micropuncture needle and the modified Seldinger technique. Selective left coronary angiogram was done using JL4 catheter with the tip of the catheter placed in the left main coronary artery. Selective right coronary angiogram was done using JR4 catheter with the tip of the catheter placed to the right coronary artery. After that 5 [place] pigtail catheter was advanced across the aortic valve into the left ventricle with measurement of LVEDP and measurement of gradient across aortic valve. Right common femoral arterial angiogram was done. Findings:: 1- left coronary artery is a large artery that divides into large LAD, large circumflex artery. Left main is free of disease. 2- left anterior descending artery is a large artery that runs and wraps around the apex. Proximal LAD 20% . Is small diagonal branch proximally has diffuse irregularities. 3- leftcircumflex artery is a large artery and codominant. Minimal irregularities. Large OM1 distally without significant disease. 4- right coronary artery is large artery and free of disease. 5- LVEDP was 21 mmhg and no gradient across aortic valve. 6-LV angiogram shows ejection fraction normal at 55% but there is some apical apical inferior hypokinesis. 6- opening arterial pressure was 115/83 and closing pressure was 114/84 7- right femoral artery angiogram shows no significant disease in the right common femoral artery. Conclusion:: --minimal irregularities -apical and apical inferior hypokinesis Assessment and Plan Assessment and plan (1) NSTEMI (non-ST elevated myocardial infarction): Code(s): I21.4 - Non-ST elevation (NSTEMI) myocardial infarction Status: Acute Assessment and Plan: -no obstructive CAD Plan Continue risk factor modification for CAD.
[2025-10-05] VITALS: BP 123/74; PULSE 66; PULSE 72; RESP 22; TEMP 36.4; O2SAT 97
[2025-10-05 02:00] VITALS: PULSE 68
[2025-10-05 03:45] VITALS: BP 129/70; PULSE 66; RESP 17; TEMP 36.7; O2SAT 94
[2025-10-05 04:00] VITALS: PULSE 79
[2025-10-05 06:00] VITALS: PULSE 77
--- NOTE | 2025-10-05 07:56 | PM.PNCARD ---
Progress Note: A&P Assessment and Plan (1) Chest pain: Code(s): R07.9 - Chest pain, unspecified Status: Acute Assessment and Plan: Troponin peaked at 2.20. Possible Takotsubo event. 10/04/25 Dr. Guo [facility]: Prox LAD 20% stenosis. 10/04/25 Echo: EF 45-50%, mild LVE, mid-apical anteroseptum hypokinetic, grade I diastolic dysfunction (E/e' 15), mild LAE. On aspirin, Plavix, Atorvastatin, Coreg. May d/c home from cardiology standpoint. (2) Elevated troponin: Code(s): R79.89 - Other specified abnormal findings of blood chemistry Status: Inactive (3) Tobacco dependence: Code(s): F17.200 - Nicotine dependence, unspecified, uncomplicated Status: Acute Assessment and Plan: Counseled regarding smoking cessation. (4) Hypertension: Qualifiers: Hypertension type: primary hypertension Qualified Code(s): I10 - Essential (primary) hypertension Code(s): I10 - Essential (primary) hypertension Status: Chronic Assessment and Plan: Stable. (5) Dyslipidemia: Code(s): E78.5 - Hyperlipidemia, unspecified Status: Chronic Assessment and Plan: On Atorvastatin. Subjective Date/time seen: 10/05/25 07:56 Interval history: Denies chest pain. No sob. Exam Const: General: cooperative, healthy appearing, comfortable and obese Nutritional Appearance: obese Orientation/consciousness: oriented to person, oriented to place and oriented to time Resp: Auscultation: clear to auscultation bilaterally, no crackles, no rales, no rhonchi and no wheezes Cardio: Rate: regular rate Rhythm: regular rhythm Heart sounds: no murmurs Peripheral pulses: dorsalis pedis present Neuro: General: oriented to person, oriented to place and oriented to time Extrem: Right lower extremity: no edema Left lower extremity: no edema Objective Data Vital Signs Vital Signs: Vital Signs - 24 hr 10/04/25 08:00 10/04/25 08:00 10/04/25 09:37 Temperature Pulse Rate 78 78 85 Pulse Rate [Bilateral Pedal (Dorsalis Pedis) Palpation] Respiratory Rate 16 Blood Pressure Pulse Oximetry 94 Oxygen Delivery Room Air 10/04/25 10:00 10/04/25 11:28 10/04/25 11:58 Temperature 97.4 F L Pulse Rate 86 84 74 Pulse Rate [Bilateral Pedal (Dorsalis Pedis) Palpation] Respiratory Rate 17 17 Blood Pressure 134/78 Pulse Oximetry 98 98 Oxygen Delivery Room Air 10/04/25 11:58 10/04/25 14:20 10/04/25 14:20 Temperature Pulse Rate 74 74 Pulse Rate [Bilateral Pedal (Dorsalis Pedis) Palpation] 74 Respiratory Rate 94 H Blood Pressure 120/78 Pulse Oximetry 94 Oxygen Delivery Room Air 10/04/25 14:35 10/04/25 14:35 10/04/25 14:50 Temperature Pulse Rate 71 Pulse Rate [Bilateral Pedal (Dorsalis Pedis) Palpation] 71 70 Respiratory Rate 19 Blood Pressure 120/89 Pulse Oximetry 94 Oxygen Delivery Room Air 10/04/25 14:50 10/04/25 15:05 10/04/25 15:05 Temperature Pulse Rate 70 77 Pulse Rate [Bilateral Pedal (Dorsalis Pedis) Palpation] 77 Respiratory Rate 19 18 Blood Pressure 136/93 H 119/84 Pulse Oximetry 91 93 Oxygen Delivery Room Air Room Air 10/04/25 15:20 10/04/25 15:20 10/04/25 15:40 Temperature Pulse Rate 71 87 Pulse Rate [Bilateral Pedal (Dorsalis Pedis) Palpation] 71 87 Respiratory Rate 19 Blood Pressure 120/88 Pulse Oximetry 92 Oxygen Delivery Room Air 10/04/25 15:48 10/04/25 16:00 10/04/25 16:00 Temperature 97.6 F Pulse Rate 76 74 74 Pulse Rate [Bilateral Pedal (Dorsalis Pedis) Palpation] Respiratory Rate 17 17 Blood Pressure 134/73 Pulse Oximetry 94 94 Oxygen Delivery Room Air 10/04/25 16:10 10/04/25 16:20 10/04/25 17:10 Temperature 97.9 F Pulse Rate 77 Pulse Rate [Bilateral Pedal (Dorsalis Pedis) Palpation] 83 86 Respiratory Rate 20 Blood Pressure 126/74 Pulse Oximetry 94 Oxygen Delivery 10/04/25 17:32 10/04/25 18:00 10/04/25 18:10 Temperature 97.4 F L Pulse Rate 78 86 Pulse Rate [Bilateral Pedal (Dorsalis Pedis) Palpation] 88 Respiratory Rate 18 Blood Pressure 125/81 Pulse Oximetry 94 Oxygen Delivery 10/04/25 18:34 10/04/25 19:32 10/04/25 20:00 Temperature 97.8 F 97.7 F Pulse Rate 86 76 77 Pulse Rate [Bilateral Pedal (Dorsalis Pedis) Palpation] Respiratory Rate 20 20 Blood Pressure 118/82 117/78 Pulse Oximetry 96 94 Oxygen Delivery 10/04/25 20:44 10/04/25 20:45 10/04/25 20:49 Temperature Pulse Rate 74 Pulse Rate [Bilateral Pedal (Dorsalis Pedis) Palpation] Respiratory Rate Blood Pressure Pulse Oximetry 95 Oxygen Delivery Room Air CPAP 10/04/25 22:00 10/05/25 00:00 10/05/25 00:00 Temperature 97.5 F L Pulse Rate 73 72 Pulse Rate [Bilateral Pedal (Dorsalis Pedis) Palpation] Respiratory Rate 22 H Blood Pressure 123/74 Pulse Oximetry 97 Oxygen Delivery CPAP 10/05/25 00:00 10/05/25 02:00 10/05/25 03:45 Temperature 98.0 F Pulse Rate 66 68 66 Pulse Rate [Bilateral Pedal (Dorsalis Pedis) Palpation] Respiratory Rate 17 Blood Pressure 129/70 Pulse Oximetry 94 Oxygen Delivery 10/05/25 04:00 10/05/25 05:05 10/05/25 06:00 Temperature Pulse Rate 79 77 Pulse Rate [Bilateral Pedal (Dorsalis Pedis) Palpation] Respiratory Rate Blood Pressure Pulse Oximetry Oxygen Delivery Room Air Intake/Output Intake/Output: Intake & Output 10/02/25 10/03/25 10/04/25 10/05/25 23:59 23:59 23:59 23:59 Intake Total 285.6 835.3 740 Output Total 600 Balance 285.6 235.3 740 Meds/Results Medications: Active Medications Generic Name Dose Route Start Last Admin Trade Name Freq PRN Reason Stop Dose Admin Albuterol 2 puff 10/03/25 21:09 Albuterol Sulfate (*Sp) Aerosol 1 Puff INHALATION Q4H PRN Shortness Of Breath Or Wheezing Aspirin 81 mg 10/04/25 09:00 10/04/25 09:37 Aspirin 81 Mg Enteric Tablet PO 81 mg QAM DAVIDA Administration Atorvastatin Calcium 40 mg 10/04/25 09:00 10/04/25 09:36 Atorvastatin 40 Mg Tablet PO 40 mg DAILY DAVIDA Administration Carvedilol 3.125 mg 10/03/25 21:10 10/04/25 20:49 Carvedilol 3.125 Mg Tablet PO 3.125 mg Q12HR DAVIDA Administration Clopidogrel Bisulfate 75 mg 10/04/25 09:00 10/04/25 09:37 Clopidogrel Bisulfate 75 Mg Tablet PO 75 mg DAILY DAVIDA Administration Empagliflozin 10 mg 10/04/25 09:00 10/04/25 09:37 Empagliflozin 10 Mg Tablet PO 10 mg DAILY DAVIDA Administration Ergocalciferol 1,250 mcg 10/21/25 09:00 Ergocalciferol (Vitamin D2) 1,250 Mcg (50,000 Units) Capsule PO MONTHLY [facility] Fluoxetine HCl 60 mg 10/04/25 09:00 10/04/25 09:36 Fluoxetine Hcl 20 Mg Capsule PO 60 mg DAILY DAVIDA Administration Folic Acid 1 mg 10/04/25 09:00 10/04/25 09:36 Folic Acid 1 Mg Tablet PO 1 mg DAILY DAVIDA Administration Furosemide 20 mg 10/04/25 09:00 10/04/25 09:38 Furosemide 20 Mg Tablet PO Not Given DAILY [facility] Hydroxyzine HCl 25 mg 10/04/25 09:00 10/04/25 17:35 Hydroxyzine Hcl 25 Mg Tablet PO 25 mg BID DAVIDA Administration Losartan Potassium 25 mg 10/04/25 09:00 10/04/25 09:37 Losartan Potassium 25 Mg Tablet PO 25 mg DAILY DAVIDA Administration Nitroglycerin 0.4 mg 10/03/25 17:22 Nitroglycerin Sl 0.4 Mg Tablet SUBLINGUAL Q5MIN PRN Chest Pain Radiology Results: ITS Impressions Chest X-Ray 10/03/25 13:29 IMPRESSION: Cardiomegaly and mild pulmonary vascular congestion. Chest CTA 10/03/25 15:35 IMPRESSION: 1. No pulmonary emboli. 2. Other than minimal atelectatic changes, no gross acute intrathoracic process. 3. Other findings as above. Labs Labs: Laboratory Results - last 24 hr 10/04/25 10:52 APTT 49.5 H
[2025-10-05 08:00] VITALS: BP 136/90; PULSE 69; PULSE 73; RESP 20; TEMP 36.4; O2SAT 98
[2025-10-05] MEDS: EMPAGLIFLOZIN 10 MG TABLET PO (08:45)
[2025-10-05] MEDS: FOLIC ACID 1 MG TABLET PO (08:45)
[2025-10-05] MEDS: ATORVASTATIN 40 MG TABLET PO (08:46)
[2025-10-05] MEDS: ASPIRIN 81 MG ENTERIC TABLET PO (08:46)
[2025-10-05] MEDS: FUROSEMIDE 20 MG TABLET PO (08:46)
[2025-10-05] MEDS: CLOPIDOGREL BISULFATE 75 MG TABLET PO (08:46)
[2025-10-05] MEDS: LOSARTAN POTASSIUM 25 MG TABLET PO (08:46)
--- NOTE | 2025-10-05 08:58 | PM.DS ---
DS: Admitting Diagnosis Discharge Date 10/05/25 Admitting Diagnosis NSTEMI DS: Discharge Diagnosis Discharge Diagnosis (1) Takotsubo syndrome: Code(s): I51.81 - Takotsubo syndrome Status: Acute DS: Summary Hospital Course Reason for hospitalization: Chest pain, elevated Hospital Course: Patient is a 40-year-old female past medical history CAD, HTN, HLD, nicotine dependence, ROBBY on CPAP, obesity BMI 55 who presents to the ED on 10/03 with chief complaint of chest pain. Patient had elevated troponin 2.2, diagnosed with NSTEMI and placed on heparin drip. 10/04 left heart catheterization by Dr. Guo found a 20% stenosis of proximal LAD. Patient's NSTEMI is more likely a takotsubo syndrome as we have found non-obstructive CAD on catherization. Echocardiogram shows EF 45-50%, grade 1 diastolic dysfunction. We will continue medical management for nonobstructive CAD. Continue home aspirin Plavix statin beta-edilberto. Patient was monitored 10/03-10/05. Patient has been counseled on smoking cessation. At time of discharge her labs are stable, vitals stable, patient is stable for discharge home. 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 Perdomo and PCP. She understands and agrees with plan. Status at Discharge Cognitive/behavioral status at discharge: Baseline Time Spent with Patient Time attestation: Total time spent providing and/or coordinating discharge services: 35 minutes Exam Narrative: - GENERAL: Pleasant morbidly obese woman in No acute distress. - EYES: EOMI. Anicteric. - HENT: Moist mucous membranes. - LUNGS: Clear to auscultation bilaterally, no wheezing, rhonchi, or rales. - CARDIOVASCULAR: Regular rate and rhythm. No murmur. No JVD. - ABDOMEN: Soft, non-tender and non-distended. No palpable masses. - EXTREMITIES: No edema. Peripheral pulses 2+. Non-tender. - NEUROLOGIC: No focal neurological deficits. CN II-XII grossly intact. - PSYCHIATRIC: Awake, Alert and oriented x 3. Appropriate mood and affect. - SKIN: No rashes or lesions. Warm. - LYMPH: No cervical lymphadenopathy. DS: Data Data Completed and Pending Completed studies during hospitalization: [facility] 10/04/25 Findings:: 1- left coronary artery is a large artery that divides into large LAD, large circumflex artery. Left main is free of disease. 2- left anterior descending artery is a large artery that runs and wraps around the apex. Proximal LAD 20% . Is small diagonal branch proximally has diffuse irregularities. 3- leftcircumflex artery is a large artery and codominant. Minimal irregularities. Large OM1 distally without significant disease. 4- right coronary artery is large artery and free of disease. 5- LVEDP was 21 mmhg and no gradient across aortic valve. 6-LV angiogram shows ejection fraction normal at 55% but there is some apical apical inferior hypokinesis. 6- opening arterial pressure was 115/83 and closing pressure was 114/84 7- right femoral artery angiogram shows no significant disease in the right common femoral artery. Conclusion:: --minimal irregularities -apical and apical inferior hypokinesis TTE 10/04/15 Summary 1. Definity contrast administered improved wall motion interpretation. 2. Left ventricular chamber dimension is mildly enlarged. 3. Left ventricular systolic function is mildly reduced, estimated at 45-50. 4. Mid to apical anteroseptum is hypokinetic. 5. The left ventricular diastolic function is grade I diastolic dysfunction. 6. E/e' 15 is elevated. 7. Left atrial chamber dimension is mildly enlarged. Labs on day of discharge: Labs from last 24 hours 10/04/25 10:52 APTT 49.5 H Discharge Plan Discharge Attending physician on discharge: Gina Shrestha Consulting providers: Ayden Perdomo; Navid Zurita Discharging Clinician: Gina Shrestha Anticipated Discharge Date/Time: 10/05/25 08:57 Patient Disposition: Home Activity: unlimited Diet: heart healthy Discharge Instructions: Caring for your site at home: You may shower, but do not take a bath, use a hot tub or swim until the skin site is healed. For 48-72 hours, you should refrain from straining or lifting anything over ten pounds. Avoid driving on the day of your discharge. Care of the wound site as directed: It is normal to feel a small lump, about the size of a pea, and/or note mild tenderness in the groin area. Some bruising or discomfort is common during the healing process after intravascular procedures. After 24 hours, removed the dressing. Gently clean the site with mild soap and water. Dry the bandage if it becomes soiled or wet. cover the area daily with a new bandage until the skin heals. When to call your doctor: If you experience any of the following symptoms, please contact your physician immediately at the number listed on your patient information card: fever rash bleeding wound drainage persistent tenderness in the groin or swelling redness and/or warmth to the touch numbness, tingling or pain in the extremity when walking other unusual symptoms. Patient Instructions: Antibiotic Form, Chest Pain (DC), Heart Catheterization (DC), Angio-Seal (DC), Angio-Seal (GEN) Patient Language: Vietnamese Stand Alone Forms: General Discharge Information, Work/School Release IP Follow-up/Referrals: Ayden Perdomo DO [Physician, Cardiology] - Keep Reg. Scheduled Appt. Chai,SANA Edwards [Primary Care Provider, Unknown] - 1 Week Discharge Medications: Continued albuterol sulfate [Ventolin HFA] 90 mcg/actuation HFA aerosol inhaler 1 puff inhalation Q4H PRN (Reason: shortness of breath or wheezing) fluoxetine 60 mg tablet 60 mg PO DAILY folic acid 1 mg tablet 1 mg PO DAILY hydroxyzine HCl 25 mg tablet 25 mg PO BID ergocalciferol (vitamin D2) 1,250 mcg (50,000 unit) capsule 1,250 mcg PO MONTHLY Jardiance 10 mg tablet See Rx Instructions .ROUTE .COMPLEX Qty: 30 5RF Dose Instruction: TAKE 1 TABLET BY MOUTH EVERY DAY Rx Instructions: TAKE 1 TABLET BY MOUTH EVERY DAY atorvastatin 40 mg tablet 40 mg PO DAILY Qty: 30 5RF losartan 25 mg tablet See Rx Instructions .ROUTE .COMPLEX Qty: 90 2RF Dose Instruction: TAKE 1 TABLET BY MOUTH EVERY DAY Rx Instructions: TAKE 1 TABLET BY MOUTH EVERY DAY furosemide 20 mg tablet See Rx Instructions .ROUTE .COMPLEX Qty: 90 2RF Dose Instruction: TAKE 1 TABLET BY MOUTH EVERY DAY Rx Instructions: TAKE 1 TABLET BY MOUTH EVERY DAY carvedilol 3.125 mg tablet See Rx Instructions .ROUTE .COMPLEX Qty: 180 2RF Dose Instruction: TAKE 1 TABLET BY MOUTH TWICE A DAY Rx Instructions: TAKE 1 TABLET BY MOUTH TWICE A DAY aspirin 81 mg tablet,delayed release (DR/EC) See Rx Instructions .ROUTE .COMPLEX Qty: 30 5RF Dose Instruction: TAKE 1 TABLET BY MOUTH EVERY DAY Rx Instructions: TAKE 1 TABLET BY MOUTH EVERY DAY clopidogrel 75 mg tablet See Rx Instructions .ROUTE .COMPLEX Qty: 30 5RF Dose Instruction: TAKE 1 TABLET BY MOUTH DAILY Rx Instructions: TAKE 1 TABLET BY MOUTH DAILY Date of admission: 10/04/25 10:33 Primary Care Provider: Chai,Man Salazar Admitting Provider: Gina Shrestha Attending physician on admission: Gina Shrestha Condition: Stable Hospitalist MIPS Heart Failure (Exclusion) Patient has history of Heart Transplant or Left Ventricular Assistive Device?: No IF YES, STOP HERE Heart Failure (Qualifier) Patient has current or prior documentation of LVEF less than or equal to 40%, or mod/servere depressed LVSF?: No IF NO, STOP HERE
--- NOTE | 2025-10-05 11:03 | PC.NURSE ---
On 10/05/25, the student, [Bhavna Munoz ], provided care and completed [facility] documentation on this patient. I have reviewed the student's documentation and agree with the findings.
== END 2025-10-05 10:05 | disposition home or self-care (01) | DRG 192 ==
LOC: ANHED 13:58 → ANHIMU 17:04
PROVIDERS: Emergency Medicine; Internal Medicine Cardiovascular Disease; Student in an Organized Health Care Education/Training Program; Admitting Provider Student in an Organized Health Care Education/Training Program; Emergency Provider Physician Assistant; PCP Physician Assistant Medical; Visit Provider Student in an Organized Health Care Education/Training Program
PROC: 4A023N7 Measurement of Cardiac Sampling and Pressure, Left Heart, Percutaneous Approach (ICD-10-PCS; CPT 93452; principal; 2025-10-04 13:15)
PROC: 4A023N7 Measurement of Cardiac Sampling and Pressure, Left Heart, Percutaneous Approach (ICD-10-PCS; 2025-10-04 13:15)
DX: I51.81 Takotsubo syndrome (principal); I11.9 Hypertensive heart disease without heart failure; I25.10 Atherosclerotic heart disease of native coronary artery without angina pectoris; E78.5 Hyperlipidemia, unspecified; E66.01 Morbid (severe) obesity due to excess calories; G47.30 Sleep apnea, unspecified; Z68.43 Body mass index [BMI] 50.0-59.9, adult; Z79.02 Long term (current) use of antithrombotics/antiplatelets; Z87.891 Personal history of nicotine dependence; Z86.73 Personal history of transient ischemic attack (TIA), and cerebral infarction without residual deficits
CPT/HCPCS: 36415; 71046; 71275; 80048; 80053; 80061; 81025; 83690; 84484; 85025; 85610; 85730; 93005; 93458; 96365; 96366; 99285; A9270; C1760; C1887; C1894; C8929; G0269; G0378; G0379; J1644; J1938; J2003; J2250; J3010; J7040; Q9957; Q9967